=== PATIENT | male | born 1950 | race Caucasian/White ===

== ENCOUNTER 2016-11-10 21:57 | Emergency (ER) | payer OTHER, MEDICARE ==
--- NOTE | 2016-11-10 22:25 | CPEKG ---
Heart Rate: 88 RR Interval: 682 P-R Interval: 148 QRSD Interval: 80 QT Interval: 336 QTC Interval: 407 P [place]: 68 QRS [place]: 12 T Wave [place]: 13 EKG Severity - ABNORMAL ECG - EKG Impression: SINUS RHYTHM EKG Impression: PROBABLE INFERIOR INFARCT, AGE INDETERMINATE EKG Impression: Unchanged from previous Electronically Signed By: Phillip Cates 10-Nov-2016 22:49:51
[2016-11-10 22:27] VITALS: TEMP 98.8
[2016-11-10 22:40] LABS: % IMMATURE GRANULYOCYTES 0.8 % (0.0-1.1); ABSOLUTE IMMATURE GRANULOCYTES 0.08 10^3/uL (0.00-0.10); ADD DIFF? NO; ADD MORPH? NO; ADD SCAN? NO; ATYPICAL LYMPHOCYTE FLAG 0 (0-99); FRAGMENT RBC FLAG 0 (0-99); HEMATOCRIT 51.4 % (40.0-51.0); HEMOGLOBIN 17.5 g/dL (13.7-17.5); LEFT SHIFT FLG 0 (0-99); LIPEMIA HEMOLYSIS FLAG 90 (0-99); MEAN CELL HEMOGLOBIN 31.7 pg (27.9-34.1); MEAN CELL VOLUME 93.1 fL (81.5-99.8); MEAN PLATELET VOLUME 9.4 fL (8.7-11.7); PLATELET CLUMPS FLAG 0 (0-99); PLATELET COUNT 299 10^3/uL (150-400); RED BLOOD CELL COUNT 5.52 10^6/uL (4.40-6.38); RED CELL DISTRIBUTION WIDTH 12.7 % (11.5-15.2)
[2016-11-10 22:47] LABS: ANION GAP 16 mEq/L (8-16); CALCIUM 9.8 mg/dL (8.5-10.4); CARBON DIOXIDE 19 mEq/l (22-31); CHLORIDE 107 mEq/L (97-110); CREATININE 0.8 mg/dL (0.7-1.3); GLOMERULAR FILTRATION RATE > 60; GLUCOSE 95 mg/dL (70-100); POTASSIUM 4.4 mEq/L (3.5-5.2); SODIUM 142 mEq/L (134-144)
[2016-11-10] MEDS ORDERED: LEVALBUTEROL 0.63 MG/3 ML DEYVIAL IH ONE (22:48)
--- NOTE | 2016-11-10 22:48 | EDPHY ---
H & P Stated Complaint: CP Time Seen by Provider: 11/10/16 22:30 HPI/ROS: CHIEF COMPLAINT: Chest pain HISTORY OF PRESENT ILLNESS: The patient is a 66-year-old man with extensive past medical history including AFib resolved with an ablation the but history of coronary artery disease status post 5 stents and OR in 2010. He is followed by [facility] particularly Jose Ramon Gardiner. He had a cardiac catheterization 3 years ago that was unchanged from previous. He also has a history of interstitial lung disease, pernicious anemia, hypertension, obstructive sleep apnea, hypoadrenalism, low testosterone, the Sjogren's syndrome. He states that this evening he was sitting watching TV around 9 o' clock when he suddenly had a tightness in his chest. It did not radiate. He developed shortness of breath and coughing. He states that his symptoms are pretty much resolved other than a slight shortness of breath. he is not wheezing. No recent fevers or infections. REVIEW OF SYSTEMS: Constitutional: denies: chills, fever, recent illness, recent injury EENTM: denies: blurred vision, double vision, nose congestion Respiratory: See HPI Cardiac: See HPI, denies: irregular heart rate, lightheadedness, palpitations Gastrointestinal/Abdominal: denies: abdominal pain, diarrhea, nausea, vomiting, blood streaked stools Genitourinary: denies: dysuria, frequency, hematuria, pain Musculoskeletal: denies: joint pain, muscle pain Skin: denies: lesions, rash, jaundice, bruising Neurological: denies: headache, numbness, paresthesia, tingling, dizziness, weakness Hematologic/Lymphatic: denies: blood clots, easy bleeding, easy bruising Immunologic/allergic: denies: HIV/AIDS, transplant EXAM: GENERAL: Well-appearing, well-nourished and in no acute distress. HEAD: Atraumatic, normocephalic. EYES: Pupils equal round and reactive to light, extraocular movements intact, sclera anicteric, conjunctiva are normal. ENT: TMs normal, nares patent, oropharynx clear without exudates. Moist mucous membranes. NECK: Normal range of motion, supple without lymphadenopathy or JVD. LUNGS: Breath sounds clear to auscultation bilaterally and equal. No wheezes rales or rhonchi. HEART: Regular rate and rhythm without murmurs, rubs or gallops. ABDOMEN: Soft, nontender, normoactive bowel sounds. No guarding, no rebound. No masses appreciated. BACK: No CVA tenderness, no spinal tenderness, step-offs or deformities EXTREMITIES: Normal range of motion, no pitting or edema. No clubbing or cyanosis. NEUROLOGICAL: Cranial nerves II through XII grossly intact. Normal speech, normal gait. 5/5 strength, normal movement in all extremities, normal sensation PSYCH: Normal mood, normal affect. SKIN: Warm, dry, normal turgor, no visible rashes or lesions. Source: Patient, Family Exam Limitations: No limitations - Personal History Current Tetanus/Diphtheria Vaccine: Yes Current Tetanus Diphtheria and Acellular Pertussis (TDAP): Yes - Medical/Surgical History Hx Asthma: Yes Hx Chronic Respiratory Disease: Yes Hx Diabetes: No Hx Cardiac Disease: Yes Hx Renal Disease: No Hx Cirrhosis: No Hx Alcoholism: No Hx HIV/AIDS: No Hx Splenectomy or Spleen Trauma: No Other PMH: pernicious anemia, MARGUERITE, HTN, hypothyroidism, hypoadrenalism, celiac, low testosterone, CAD with stents, sjrogrens syndrome, hiatal hernia, GERD, asthma, appy, migraine, - Family History Significant Family History: Heart disease, Hypertension - Social History Smoking Status: Never smoked Constitutional: Initial Vital Signs Temperature (C) 37.1 C 11/10/16 21:57 Heart Rate 93 11/10/16 21:57 Respiratory Rate 16 11/10/16 21:57 Blood Pressure 155/99 H 11/10/16 21:57 O2 Sat (%) 94 11/10/16 21:57 O2 Delivery Mode Room Air Allergies/Adverse Reactions: ANIBAL Inhibitors Allergy (Verified 11/10/16 22:15) amiodarone Allergy (Verified 11/10/16 22:15) Benzodiazepines Allergy (Verified 11/10/16 22:15) Beta-Blockers (Beta-Adrenergic Bloc Allergy (Verified 11/10/16 22:15) Calcium Channel Blocking Agents-Dih Allergy (Verified 11/10/16 22:15) NSAIDS (Non-Steroidal Anti-Inflamma Allergy (Verified 11/10/16 22:15) Proton Pump Inhibitors Allergy (Verified 11/10/16 22:15) Sjbwvcy-Xrb-Uvn Reductase Inhibitor Allergy (Verified 11/10/16 22:15) Tricyclic Compounds Allergy (Verified 11/10/16 22:15) warfarin [From Coumadin] Allergy (Verified 11/10/16 22:15) SSRIs Allergy (Uncoded 11/10/16 22:15) Home Medications: Medication Instructions Recorded Androgel 11/10/16 Benicar 11/10/16 Cytomel 11/10/16 Medrol 11/10/16 Valium 11/10/16 Vitamin B12 11/10/16 Xopenex 11/10/16 Zofran 11/10/16 Medical Decision Making - Diagnostics EKG Interpretation: An EKG obtained and was read and documented in trace view. Please see trace view for full reading and report. Sinus rhythm, no acute ischemia, unchanged from previous Imaging Results: Imaging Impressions Chest X-Ray 11/10/16 22:27 Impression: Negative portable chest ED Course/Re-evaluation: We discussed the test results thus far. The patient and were reassured. He feels much better after Xopenex treatment. He suspects this may have been slight reactive airway disease versus GERD. I suggested admission versus observation and repeat troponin. The patient does not wish to be admitted. He does agree to a repeat troponin. Patient's repeat troponin is negative. He is eager to go home. He declines further workup or testing at this time. We discussed follow-up as well as indications for returning. Differential Diagnosis: Partial list of the Differential diagnosis considered include but were not limited to; acute coronary disease, COPD exacerbation, pneumonia and although unlikely based on the history and physical exam, I also considered PE, arrhythmia. I discussed these differential diagnoses and the plan with the patient as well as the usual and expected course. The patient understands that the diagnosis is provisional and that in medicine we are not always correct and that further workup is often warranted. Usual and customary warnings were given. All of the patient's questions were answered. The patient was instructed to return to the emergency department should the symptoms at all worsen or return, otherwise to followup with the physician as we discussed. - Data Points Laboratory Results: Laboratory Results 11/10/16 22:07 11/10/16 22:07 11/11/16 11/10/16 11/10/16 00:40 22:46 22:07 WBC RBC Hgb Hct MCV MCH MCHC RDW Plt Count MPV Neut % (Auto) Lymph % (Auto) [place] % (Auto) Eos % (Auto) Baso % (Auto) Nucleat RBC Rel Count Absolute Neuts (auto) Absolute Lymphs (auto) Absolute Monos (auto) Absolute Eos (auto) Absolute Basos (auto) Absolute Nucleated RBC Immature Gran % Immature Gran # PT 12.3 SEC SEC (12.0-15.0) INR 0.92 (0.83-1.16) APTT 26.3 SEC SEC (23.0-38.0) D-Dimer 0.30 ug/mLFEU ug/mLFEU (0.00-0.50) Sodium 142 mEq/L mEq/L (134-144) Potassium 4.4 mEq/L mEq/L (3.5-5.2) Chloride 107 mEq/L mEq/L (97-110) Carbon Dioxide 19 mEq/l L mEq/l (22-31) Anion Gap 16 mEq/L mEq/L (8-16) BUN 20 mg/dL mg/dL (7-23) Creatinine 0.8 mg/dL mg/dL (0.7-1.3) Estimated GFR > 60 Glucose 95 mg/dL mg/dL (70-100) Calcium 9.8 mg/dL mg/dL (8.5-10.4) Troponin I 0.013 ng/mL ng/mL < 0.012 ng/mL ng/mL (0-0.034) (0-0.034) NT-Pro-B Natriuret Pep 118 pg/mL pg/mL (0-125) 11/10/16 22:07 WBC 9.66 10^3/uL H 10^3/uL (3.80-9.50) RBC 5.52 10^6/uL 10^6/uL (4.40-6.38) Hgb 17.5 g/dL g/dL (13.7-17.5) Hct 51.4 % H % (40.0-51.0) MCV 93.1 fL fL (81.5-99.8) MCH 31.7 pg pg (27.9-34.1) MCHC 34.0 g/dL g/dL (32.4-36.7) RDW 12.7 % % (11.5-15.2) Plt Count 299 10^3/uL 10^3/uL (150-400) MPV 9.4 fL fL (8.7-11.7) Neut % (Auto) 69.8 % % (39.3-74.2) Lymph % (Auto) 20.7 % % (15.0-45.0) [place] % (Auto) 8.0 % % (4.5-13.0) Eos % (Auto) 0.0 % L % (0.6-7.6) Baso % (Auto) 0.7 % % (0.3-1.7) Nucleat RBC Rel Count 0.0 % % (0.0-0.2) Absolute Neuts (auto) 6.74 10^3/uL H 10^3/uL (1.70-6.50) Absolute Lymphs (auto) 2.00 10^3/uL 10^3/uL (1.00-3.00) Absolute Monos (auto) 0.77 10^3/uL 10^3/uL (0.30-0.80) Absolute Eos (auto) 0.00 10^3/uL L 10^3/uL (0.03-0.40) Absolute Basos (auto) 0.07 10^3/uL 10^3/uL (0.02-0.10) Absolute Nucleated RBC 0.00 10^3/uL 10^3/uL (0-0.01) Immature Gran % 0.8 % % (0.0-1.1) Immature Gran # 0.08 10^3/uL 10^3/uL (0.00-0.10) PT INR APTT D-Dimer Sodium Potassium Chloride Carbon Dioxide Anion Gap BUN Creatinine Estimated GFR Glucose Calcium Troponin I NT-Pro-B Natriuret Pep Medications Given: Discontinued Medications Levalbuterol (Xopenex 0.63mg Neb) 0.63 mg IH EDNOW ONE Stop: 11/10/16 22:49 Last Admin: 11/10/16 23:08 Dose: 0.63 mg Departure - Departure Disposition: Home, Routine, Self-Care Clinical Impression: Reactive airway disease Qualifiers: Asthma severity: unspecified severity Asthma complication type: uncomplicated Qualified Code(s): J45.909 - Unspecified asthma, uncomplicated Condition: Fair Instructions: Reactive Airways Disease (ED) Referrals: MAMTA AYALA [Other] - As per Instructions
[2016-11-10 22:59] LABS: TROPONIN I < 0.012 ng/mL (0-0.034)
[2016-11-10 23:01] LABS: APTT 26.3 SEC (23.0-38.0); INR 0.92 (0.83-1.16); PROTIME(PATIENT) 12.3 SEC (12.0-15.0)
[2016-11-11 00:24] VITALS: BP 127/73; PULSE 73; RESP 18; O2SAT 93
== END 2016-11-11 01:52 | disposition home or self-care (01) ==
LOC: EDUNIT#
DX: J45.909 Unspecified asthma, uncomplicated (principal); I10 Essential (primary) hypertension; I25.10 Atherosclerotic heart disease of native coronary artery without angina pectoris

== ENCOUNTER → 2017-02-22 | Outpatient (CLI) | payer OTHER, MEDICARE | LOC: BHLMT 13:00 | PROVIDERS: ATTEND Internal Medicine Interventional Cardiology | DX: I25.10 Atherosclerotic heart disease of native coronary artery without angina pectoris (principal); R06.09 Other forms of dyspnea | CPT/HCPCS: 78452; 93017; A9500 ==

== ENCOUNTER 2017-03-12 09:44 | Observation (INO) | payer OTHER, MEDICARE ==
[2017-03-12] MEDS ORDERED: ACETAMINOPHEN 325 MG TAB PO PRN (09:48)
[2017-03-12] MEDS ORDERED: ASPIRIN EC 325 MG TAB PO ONE ×2 (09:48→10:04)
[2017-03-12] MEDS ORDERED: NS 1,000 ML IV SCH ×2 (09:48→13:45)
[2017-03-12] MEDS ORDERED: diphenhydrAMINE 25 MG CAP PO ONE ×2 (09:48→10:04)
[2017-03-12] MEDS ORDERED: FAMOTIDINE 20 MG TAB PO ONE (09:48)
[2017-03-12] MEDS ORDERED: NITROGLYCERIN 0.4 MG BTL SL PRN (09:48)
[2017-03-12] MEDS ORDERED: FAMOTIDINE 20 MG TAB ONE (10:04)
[2017-03-12] MEDS ORDERED: DIAZEPAM 5 MG TAB ONE (10:04)
--- NOTE | 2017-03-12 10:05 | CPEKG ---
Heart Rate: 80 RR Interval: 750 P-R Interval: 172 QRSD Interval: 84 QT Interval: 356 QTC Interval: 411 P [place]: 63 QRS [place]: 26 T Wave [place]: 19 EKG Severity - ABNORMAL ECG - EKG Impression: SINUS RHYTHM EKG Impression: Q WAVES INFERIORLY, POSSIBLE OLD INFERIOR [place], AGE INDETERMINATE Electronically Signed By: David Murphy 12-Mar-2017 11:43:58
[2017-03-12] MEDS ORDERED: DIAZEPAM 5 MG TAB PO ONE (10:45)
[2017-03-12 10:47] LABS: % IMMATURE GRANULYOCYTES 0.7 % (0.0-1.1); ABSOLUTE IMMATURE GRANULOCYTES 0.04 10^3/uL (0.00-0.10); ADD DIFF? NO; ADD MORPH? NO; ADD SCAN? NO; ATYPICAL LYMPHOCYTE FLAG 0 (0-99); FRAGMENT RBC FLAG 0 (0-99); HEMATOCRIT 47.6 % (40.0-51.0); HEMOGLOBIN 16.5 g/dL (13.7-17.5); LEFT SHIFT FLG 0 (0-99); LIPEMIA HEMOLYSIS FLAG 90 (0-99); MEAN CELL HEMOGLOBIN 31.7 pg (27.9-34.1); MEAN CELL HEMOGLOBIN CONCENTR. 34.7 g/dL (32.4-36.7); MEAN CELL VOLUME 91.4 fL (81.5-99.8); MEAN PLATELET VOLUME 8.4 fL (8.7-11.7); PLATELET CLUMPS FLAG 0 (0-99); PLATELET COUNT 231 10^3/uL (150-400); RED BLOOD CELL COUNT 5.21 10^6/uL (4.40-6.38)
[2017-03-12 10:56] LABS: APTT 25.6 SEC (23.0-38.0); INR 0.99 (0.83-1.16)
[2017-03-12 11:03] LABS: ALANINE AMINOTRANSFERASE 50 IU/L (21-72); ALBUMIN 4.1 g/dL (3.5-5.0); ALKALINE PHOSPHATASE 87 IU/L (38-126); ANION GAP 14 mEq/L (8-16); ASPARTATE AMINOTRANSFERASE 29 IU/L (17-59); BILIRUBIN,TOTAL 0.6 mg/dL (0.1-1.4); CALCIUM 9.3 mg/dL (8.5-10.4); CARBON DIOXIDE 24 mEq/l (22-31); CHLORIDE 105 mEq/L (97-110); CHOLESTEROL 204 mg/dL (140-220); CHOLESTEROL/HDL RATIO 4.98 RATIO (1.00-4.97); CREATININE 0.8 mg/dL (0.7-1.3); GLOMERULAR FILTRATION RATE > 60; GLUCOSE 119 mg/dL (70-100); HIGH DENSITY LIPOPROTEIN 41 mg/dL (40-65); LDL/HDL RATIO 3.32 RATIO (1.00-3.64); LOW DENSITY LIPOPROTEIN 136 mg/dL (80-100); MAGNESIUM 1.9 mg/dL (1.6-2.3); NON-HIGH DENSITY LIPOPROTEIN 163 mg/dL (90-129); POTASSIUM 4.2 mEq/L (3.5-5.2); SODIUM 143 mEq/L (134-144); TOTAL PROTEIN 6.7 g/dL (6.3-8.2); TRIGLYCERIDE 136 mg/dL (40-150); VERY LOW DENSITY LIPOPROTEINS 27 mg/dL (8-25)
[2017-03-12] MEDS ORDERED: LIDOCAINE 1% 300 MG/30 ML SDV ONE ×2 (11:22→13:25)
[2017-03-12] MEDS ORDERED: IOPAMIDOL (ISOVUE-370) 150 ML BTL IV ONE ×4 (11:23→14:37)
[2017-03-12] MEDS ORDERED: MIDAZOLAM 2 MG/2 ML VIAL ONE ×4 (11:23→14:37)
[2017-03-12] MEDS ORDERED: fentaNYL 100 MCG/2 ML INJ ONE ×3 (11:23→14:36)
--- NOTE | 2017-03-12 11:53 | PDHPUP ---
History & Physical Update H&P update statement: This history and physical update is based on an assessment of the patient which was completed after admission or registration (within 24 hours), but prior to the surgery/procedure. H&P update: H&P reviewed & patient examined, no change in patient's condition since H&P completed (Andrey test right wrist normal at less than 5 seconds.)
--- NOTE | 2017-03-12 11:54 | PDPROPOC ---
Sedation Plan of Care Sedation Plan of Care: vital signs stable, mental status noted, patient educated of risks, benefits, alternatives, patient can tolerate sedation ASA Classification: ASA 2 Planned drugs: fentanyl, midazolam Mallampati Score: Class 2 Mallampati Reference Image: Patient passed 3-3-2 rule?: Yes
[2017-03-12] MEDS ORDERED: HEPARIN 10,000 UNIT/10 ML MDV ONE ×2 (11:58→13:26)
[2017-03-12] MEDS ORDERED: VERAPAMIL 5 MG/2 ML VIAL ONE ×2 (11:58→13:26)
[2017-03-12] MEDS ORDERED: NITROGLYCERIN 1,500 MCG/15 ML VIAL MISC ONE (12:45)
[2017-03-12] MEDS ORDERED: CLOPIDOGREL BISULFATE 75 MG TAB ONE (13:17)
[2017-03-12] MEDS ORDERED: ONDANSETRON 4 MG/2 ML VIAL IVP PRN (13:36)
[2017-03-12] MEDS ORDERED: CLOPIDOGREL BISULFATE 75 MG TAB PO ONE (13:36)
[2017-03-12] MEDS ORDERED: ATROPINE SULFATE 1 MG/10 ML SYR IVP PRN (13:36)
--- NOTE | 2017-03-12 13:52 | PDDXCAT ---
Diagnostic Cath Note - . Date: 03/12/17 Metal Finish Inspector: Abdifatah Indication: other (Dyspnea on exertiona as an anginal equivalent and abnormal nuclear stress test.) - Procedure Access: right wrist Procedure: left heart catheterization, coronary angiography, left ventriculogram , other (PCI of the RCA) - Materials Left Heart Cath size: 5F Left Heart Cath materials: other (Sightseer and Pigtail) - Findings-Left Heart Catheterization LM: Normal. LAD: Fluoroscopy reveals the presence of a previously stented segment spanning from the proximal to mid-LAD. Angiography reveals a 50% stenosis within the midportion of the stented segment immediately adjacent to the origin of a multibranched septal beater out. The remainder of the LAD and its diagonal branches exhibit mild irregularities. LCX: Fluoroscopy reveals the presence of a previously stented segment in the proximal to midportion of a multi-branched principal obtuse marginal. Angiography reveals that the stented segment is widely patent. Immediately distal to the stent therre is a 50% stenosis. RCA: Flouroscopy demonstrates the presence of a previously stented segment in the mid-RCA. Angiography reveals total occlusion of the RCA early within the stented segment. The distal vessel receives [id number]-[id number] collaterals via septal beater out branches from the LAD. EDP: 26 mmHg LVEF: 55% Wall motion: Inferobasilar hypokinesis. Complications: None Estimated blood loss: <50ml Closure method: TR Band Assessment: 1) Preserved LV systolic function with inferobasilar hypokinesis. 2 ) CAD as described above. 3) Succeesful PCI of the RCA using two drug coated stents. Intervention: Based on the patient's clinical history and diagnostic angiography, the decision was made to perform PCI of the RCA. The patient received 2500 units of intravenous heparin in addition to the 5000 units that had been given at the beginning of the procedure. A 5 Romansh JR 4 guide catheter was advanced to the RCA ostium. A Media Clerk-50 guidewire was successfully negotiated into the distal RCA. Predilatation of the site of total occlusion was performed using a 2.0 x 15 mm Emerge balloon. This restored anterograde flow. However, there was a second total occlusion approximately 15 mm distal to the first. The more distal total occlusion was crossed using a 1.5 x 12 mm Emerge balloon. Inflations were performed throughout the mid-RCA using the 1.5 and 2.0 mm balloons. A 2.75 x 28 mm Synergy stent was advanced into the mid to distal RCA and was deployed at high pressure. A second Synergy stent measuring 3.0 x 24 mm was advanced into position proximal to, and slightly overlapping, the first stent. The second stent was deployed at high pressure. An additional inflation was performed at the overlap segment. Final angiograms demonstrated 0% residual stenosis and AMBER -III flow.
--- NOTE | 2017-03-12 14:11 | CPEKG ---
Heart Rate: 74 RR Interval: 811 P-R Interval: 176 QRSD Interval: 82 QT Interval: 360 QTC Interval: 400 P [place]: 48 QRS [place]: 6 T Wave [place]: -3 EKG Severity - ABNORMAL ECG - EKG Impression: SINUS RHYTHM EKG Impression: INFERIOR INFARCT, AGE INDETERMINATE Electronically Signed By: David Murphy 12-Mar-2017 15:54:21
[2017-03-12] MEDS: FLUNISOLIDE IH SCH (17:21)
[2017-03-12] MEDS ORDERED: OLMESARTAN 40 MG PO SCH (21:00)
[2017-03-12] MEDS ORDERED: AEROSPAN IH SCH (21:00)
[2017-03-12] MEDS ORDERED: LEVALBUTEROL INHALER 200 PUFFS/15 GM MDI IH SCH (21:00)
[2017-03-12] MEDS: HYDROCODONE/APAP 5/325 TAB PO PRN (22:38)
[2017-03-13] MEDS: HYDROCODONE/APAP 5/325 TAB PO PRN (00:11)
[2017-03-13 06:02] LABS: % IMMATURE GRANULYOCYTES 0.6 % (0.0-1.1); ABSOLUTE IMMATURE GRANULOCYTES 0.04 10^3/uL (0.00-0.10); ADD DIFF? NO; ADD MORPH? NO; ADD SCAN? NO; ATYPICAL LYMPHOCYTE FLAG 10 (0-99); FRAGMENT RBC FLAG 0 (0-99); HEMATOCRIT 43.7 % (40.0-51.0); LEFT SHIFT FLG 0 (0-99); LIPEMIA HEMOLYSIS FLAG 90 (0-99); MEAN CELL HEMOGLOBIN 31.7 pg (27.9-34.1); MEAN CELL HEMOGLOBIN CONCENTR. 34.3 g/dL (32.4-36.7); MEAN CELL VOLUME 92.4 fL (81.5-99.8); MEAN PLATELET VOLUME 8.8 fL (8.7-11.7); PLATELET CLUMPS FLAG 0 (0-99); PLATELET COUNT 195 10^3/uL (150-400); RED BLOOD CELL COUNT 4.73 10^6/uL (4.40-6.38); RED CELL DISTRIBUTION WIDTH 13.2 % (11.5-15.2)
[2017-03-13 06:13] LABS: ALBUMIN 3.4 g/dL (3.5-5.0); ANION GAP 11 mEq/L (8-16); ASPARTATE AMINOTRANSFERASE 27 IU/L (17-59); BILIRUBIN,TOTAL 0.4 mg/dL (0.1-1.4); CALCIUM 8.5 mg/dL (8.5-10.4); CARBON DIOXIDE 23 mEq/l (22-31); CHLORIDE 106 mEq/L (97-110); CREATININE 0.8 mg/dL (0.7-1.3); GLOMERULAR FILTRATION RATE > 60; GLUCOSE 86 mg/dL (70-100); LACTATE DEHYDROGENASE 490 IU/L (313-618); MAGNESIUM 2.1 mg/dL (1.6-2.3); POTASSIUM 3.8 mEq/L (3.5-5.2); SODIUM 140 mEq/L (134-144)
[2017-03-13 07:54] VITALS: BP 125/66; PULSE 78; RESP 14; TEMP 98.1; O2SAT 94
[2017-03-13] MEDS: FLUNISOLIDE IH SCH (08:14)
[2017-03-13] MEDS ORDERED: ASPIRIN EC 325 MG TAB PO SCH (09:00)
[2017-03-13] MEDS ORDERED: CLOPIDOGREL BISULFATE 75 MG TAB PO SCH (09:00)
[2017-03-13] MEDS ORDERED: methylPREDNISolone 4 MG TAB PO SCH (09:00)
[2017-03-13] MEDS ORDERED: LEVALBUTEROL 1.25 MG/3 ML DEYVIAL IH SCH (09:00)
--- NOTE | 2017-03-13 09:02 | CPEKG ---
Heart Rate: 87 RR Interval: 690 P-R Interval: 156 QRSD Interval: 84 QT Interval: 336 QTC Interval: 404 P [place]: 68 QRS [place]: 19 T Wave [place]: 50 EKG Severity - ABNORMAL ECG - EKG Impression: SINUS RHYTHM EKG Impression: PROBABLE INFERIOR INFARCT, OLD Electronically Signed By: David Murphy 13-Mar-2017 15:36:15
--- NOTE | 2017-03-13 12:46 | GDS ---
[f rep st] DISCHARGE SUMMARY SUPERVISING INFORMATICA ARCHITECT: Jose Ramon Gardiner MD ADMISSION DIAGNOSES: 1. Shortness of breath. 2. Coronary artery disease. 3. Abnormal myocardial perfusion imaging study. 4. Hypertension. 5. Hyperlipidemia. 6. Paroxysmal atrial fibrillation, with remote cryoablation. 7. Sjogren syndrome. 8. Asthma. DISCHARGE DIAGNOSES: 1. Coronary artery disease, status post percutaneous coronary intervention with 2 drug-eluting stent implantations of the right coronary artery, a 2.75 x 28 Synergy drug-eluting stent and a 3.0 x 24 Sy nergy drug-eluting stent. 2. Hypertension. 3. Hyperlipidemia. 4. History of paroxysmal atrial fibrillation, with remote cryoablation in [place]. 5. Sjogren syndrome. 6. Asthma. PROCEDURES PERFORMED DURING HOSPITALIZATION: 1. Electrocardiogram. 2. Diagnostic heart catheterization. 3. Percutaneous coronary intervention of the right coronary artery with SONIA implantation of a 2.75 x 28 Synergy SONIA in distal RCA, and a 3.0 x 24 Synergy SONIA implantation in proximal RCA. BRIEF HISTORY: Please see H and P: Briefly, the patient is a 66-year-old male with known history of CAD. He has been reporting ongoing symptoms of fatigue and shortness of breath, walking 1 block. H e recently underwent a nuclear stress test showing a dense fixed deficit consistent with prior VA in his inferior wall. Due to his symptoms and known history of CAD, it was decided that he should come in for further evaluation by cardiac catheterization for coronary ischemia. HOSPITAL COURSE: Patient was admitted through CVC, prepped for procedure, and taken to the cardiac c atheterization lab. There, Dr. Gardiner performed a left heart catheterization from the right radial approach. Findings of coronary angiogram showed left main was normal; LAD was showing previous sten t with a 50% in-stent restenosis, the rest of the LAD with mild luminal irregularities; circumflex wi th previous stented proximal to mid point obtuse marginal, showing the stent was widely patent, immed iately distal to the stent, there was a 50% stenosis; RCA coronary was completely occluded, noting le ft-to-right collateral circulation via septal tool salvage worker branches from the LAD. His EDP was measured at 26 mmHg, LVEF was 55% with inferior basal hypokinesis. At that point, Dr. Gardiner decided to pr oceed with percutaneous coronary intervention, in which he was successfully able to reopen the totall y occluded RCA and implant 2 SONIA as mentioned above. No complications. Patient was taken to the CVC and ultimately to the PCU for overnight observation. There, he reports he has been walking the unit , reporting his symptoms of shortness of breath have significantly improved. He denies any chest pre ssure or pain, reports no palpitations. On continuous cardiac monitoring, he has been in sinus rhyth m with rare PVC. No malignant arrhythmias or pauses noted. PHYSICAL EXAMINATION ON DAY OF DISCHARGE: GENERAL APPEARANCE: A medium built, mildly obese, Caucasi an male. He is alert and oriented to person, place, time, and situation. Appears to be under no acu te distress. VITAL SIGNS: Currently, blood pressure 125/66, heart rate 78, sinus rhythm on the radha tor, respirations 14, saturating 94% on room air. Temperature of 36.7 degrees Celsius. HEENT: Head is normocephalic. Lips and tongue are pink and moist with no signs of cyanosis. Conjunctivae pink. NECK: Trachea is midline, +2 carotid pulses bilateral. No auscultated bruits, no jugular vein dis tention. RESPIRATORY: Lungs are clear to auscultation, no rhonchi, rales or wheezes. No accessory muscle use, no intercostal muscle retraction noted. CARDIAC: Regular rate, regular rhythm, S1, S2. No S3, S4, gallops, rubs or murmur noted. ABDOMEN: Soft, nontender, bowel sounds x4 quadrants. No organomegaly. No palpable masses. SKIN: [place], warm, dry, no cyanosis, no clubbing, no peripheral edema. VASCULAR: +2 carotids bilateral, +2 radials bilateral, +1 dorsal pedal and posterior tibial pulses bilateral. Catheter insertion site, right wrist site, with no redness, swelling, drainage, ec chymosis, or hematoma. Capillary refill within normal limits to right upper extremity fingers. LABORATORY STUDIES: This morning, showed WBC of 6.45, hemoglobin 15.0, hematocrit 43.7, platelet cou nt 195. Sodium 140, potassium 3.8, chloride 106, CO2 of 23, BUN 16, creatinine 0.8, glucose 86, calc ium 8.5, phosphorus 3.32, magnesium 2.1, total bilirubin 0.4, AST of 27, albumin 3.4. Yesterday, tot al fasting lipid panel showed total cholesterol of 204, LDL 136, triglycerides 136, HDL 41. STUDIES: Diagnostic cardiac catheterization and percutaneous coronary intervention as mentioned abov e. Morning electrocardiogram shows sinus rhythm, noted mild Q-waves in inferior leads. No significa nt ST or T-wave abnormalities noted. DISCHARGE DISPOSITION: Patient will be discharged home in stable condition. He is under activity re strictions of not lifting more than 10 pounds with the right arm for the next week, and no strenuous activity for the next 2 weeks. DISCHARGE MEDICATIONS: Please see discharge medication reconciliation sheet, note patient's aspirin therapy has been increased to 325 mg and he has been started on clopidogrel 75 mg p.o. daily. DISCHARGE INSTRUCTIONS: Post percutaneous coronary intervention discharge instructions went over wit h the patient including monitoring for signs of infection, activity restrictions, and medication comp liancy; especially, the importance of dual anti-platelet therapy with 2 new SONIA implanted. Had a aliyah g discussion with the patient and his regarding his cholesterol status, patient has been known t o be statin intolerant, he does not want to start Zetia, he would consider potentially a PCSK9 inhibi tor, which we will discuss further at his next office visit. The patient has a followup visit set fo r next at our [place] office with myself. At the time of discharge, patient verbalizes und erstanding of all instructions and has no questions or concerns. He has been told that if any proble ms or concerns post discharge, he is to call our office or return to the hospital. Total time spent on discharge, greater than 30 minutes. Copy requested to: Mayur Sewell MD /[id number]/JOSE ALBERTOL
--- NOTE | 2017-03-13 15:25 | ASDISCHSUM ---
Discharge Information Plan Status:Home with No Needs Medically Cleared to Leave:03/12/2017 Discharge Date:03/13/2017 12:08 PM CM D/C Disposition:Home, Routine, Self-Care ADT D/C Disposition:Home, Routine, Self-Care Projected Discharge Date:03/13/2017 12:08 PM Transportation at D/C:Friend Discharge Delay Reason: Follow-Up Date:03/13/2017 12:08 PM Discharge Slot: Final Diagnosis: Placement Information Patient Contact Information Contact Name:MAISHA Relationship: Address:[address] [place] Alternate Phone: [facility]/Zip Code:[place] [address] Email: Financial Information Financial Class: Primary Plan Desc:MEDICARE OUTPATIENT Primary Plan Number:[id number] Secondary Plan Desc:[employer]/MDR SUPPLEMENT Secondary Plan Number:[id number] Assessment Information Intervention Information Intervention Type:*PETERSON-Signed Date of Service:03/13/2017 09:46 AM Patient Type:Observation Staff Member:Ivanna Moss Hours: Discipline: Severity: Comment:
[2017-03-14] MEDS ORDERED: LIOTHYRONINE SODIUM 5 MCG TAB PO SCH (09:00)
[2017-03-16 14:11] LABS: 2C19 DISCLAIMER See Comments; 2C19 INTERPRETATION See Comments; 2C19 METHOD See Comments
== END 2017-03-13 12:08 | disposition home or self-care (01) ==
LOC: FCATH 09:44 → F2W 16:10
PROVIDERS: ADMIT Internal Medicine Interventional Cardiology; ATTEND Internal Medicine Interventional Cardiology
PROC: B2111ZZ Fluoroscopy of Multiple Coronary Arteries using Low Osmolar Contrast (ICD-10-PCS; principal; 2017-03-12)
PROC: B2151ZZ Fluoroscopy of Left Heart using Low Osmolar Contrast (ICD-10-PCS; principal; 2017-03-12)
PROC: 4A023N7 Measurement of Cardiac Sampling and Pressure, Left Heart, Percutaneous Approach (ICD-10-PCS; principal; 2017-03-12)
DX: R06.02 Shortness of breath (principal); I25.10 Atherosclerotic heart disease of native coronary artery without angina pectoris; R94.39 Abnormal result of other cardiovascular function study; I10 Essential (primary) hypertension; E78.5 Hyperlipidemia, unspecified; I48.0 Paroxysmal atrial fibrillation; M35.00 Sjogren syndrome, unspecified; J45.909 Unspecified asthma, uncomplicated
CPT/HCPCS: 93005; 93458; C1725; C1769; C1874; C1887; C9600; J1644; J2250; J3010; Q9967; 81225-90

== ENCOUNTER → 2017-04-03 | Outpatient (CLI) | payer OTHER, MEDICARE | LOC: BHLMT 16:00 | PROVIDERS: ATTEND Nurse Practitioner Family | DX: R00.2 Palpitations (principal) | CPT/HCPCS: 93225-PO; 93226-PO ==

== ENCOUNTER 2018-01-26 02:52 | Inpatient (IN) | payer OTHER, MEDICARE ==
--- NOTE | 2018-01-26 03:13 | EDPHY ---
H & P Stated Complaint: Shoulder/Neck pain Pt. states same pain as past AMI Time Seen by Provider: 01/26/18 03:09 HPI/ROS: Chief Complaint: Left shoulder and neck pain HPI: 67-year-old male with a history of coronary artery disease is been having intermittent pain in his left shoulder blade in his left neck for the last 2 days. It feels like his prior MIs in the past. No substernal chest pain but he has never had substernal chest pain. Last time was catheterized of February of last year at which time he had stents placed. Pain is not reproducible. There are no aggravating or alleviating factors. It comes on last for about 30 min to an hour. He did take some nitroglycerin in aspirin with some relief. He is currently pain-free. Pain is"severe"when it comes. No leg pain or swelling. ROS: 10 systems were reviewed and were negative except those elements noted in the HPI. PMH: Coronary artery disease, hypertension, autoimmune disease Social History: No smoking, no alcohol, no recreational drug use Family History: non-contributory Physical Exam: Gen: Awake, Alert, No Distress HEENT: Nose: no rhinorrhea Eyes: PERRLA, EOMI Mouth: Moist mucosa Neck: Supple, no JVD Chest: nontender, lungs clear to auscultation Heart: S1, S2 normal, no murmur Abd: Soft, non-tender, no guarding Back: no CVA tenderness, no midline tenderness Ext: no edema, non-tender Skin: no rash Neuro: CN II-XII intact, Sensation grossly intact, Strength 5/5 in bilateral upper and lower extremities - Personal History Current Tetanus/Diphtheria Vaccine: Unsure Current Tetanus Diphtheria and Acellular Pertussis (TDAP): Unsure - Medical/Surgical History Hx Asthma: Yes Hx Chronic Respiratory Disease: Yes Hx Diabetes: No Hx Cardiac Disease: Yes Hx Renal Disease: No Hx Cirrhosis: No Hx Alcoholism: No Hx HIV/AIDS: No Hx Splenectomy or Spleen Trauma: No Other PMH: 2010 AMI, pernicious anemia, MARGUERITE, HTN, hypothyroidism, hypoadrenalism , celiac, low testosterone, CAD with stents, sjrogrens syndrome, hiatal hernia, GERD, asthma, appy - Social History Smoking Status: Never smoked Constitutional: Initial Vital Signs Temperature (C) 36.8 C 01/26/18 02:53 Heart Rate 81 01/26/18 02:53 Respiratory Rate 16 01/26/18 02:53 Blood Pressure 176/74 H 01/26/18 02:53 O2 Sat (%) 93 01/26/18 02:53 O2 Delivery Mode Room Air Allergies/Adverse Reactions: ANIBAL Inhibitors Allergy (Verified 11/10/16 22:15) amiodarone Allergy (Verified 11/10/16 22:15) Benzodiazepines Allergy (Verified 11/10/16 22:15) Beta-Blockers (Beta-Adrenergic Bloc Allergy (Verified 11/10/16 22:15) Calcium Channel Blocking Agents-Dih Allergy (Verified 11/10/16 22:15) NSAIDS (Non-Steroidal Anti-Inflamma Allergy (Verified 11/10/16 22:15) Proton Pump Inhibitors Allergy (Verified 11/10/16 22:15) Kgpfcqy-Tmg-Qio Reductase Inhibitor Allergy (Verified 11/10/16 22:15) Tricyclic Compounds Allergy (Verified 11/10/16 22:15) warfarin [From Coumadin] Allergy (Verified 11/10/16 22:15) SSRIs Allergy (Uncoded 11/10/16 22:15) Home Medications: Medication Instructions Recorded Aerospan 3 puffs IH BID 03/05/17 Cyanocobalamin [Vitamin B12 20,000 mcg IM Q7D 03/05/17 1000MCG/ML (*)] Herbals/Supplements -Info Only 1 ea PO DAILY 03/05/17 Levalbuterol 1.25 mg [Xopenex 1.25 mg IH DAILY 03/05/17 1.25MG Neb (*)] Levalbuterol Tartrate [Xopenex Hfa] 2 - 4 puffs IH HS 03/05/17 Liothyronine Sodium [Cytomel 5 mcg 5 mcg PO Q2D 03/05/17 (*)] Naltrexone 4.5mg (Low Dose) 4.5 mg PO DAILY 03/05/17 Olmesartan Medoxomil [Benicar 20 20 mg PO HS 03/05/17 mg (*)] Testosterone [ANDROGEL 1% 5gm pkt 2.5 gm TD DAILY 03/05/17 (*)] methylPREDNISolone [Medrol 4mg (*)] 4 mg PO DAILY 03/05/17 Acetaminophen [Tylenol 325mg (*)] 650 mg PO QID PRN tab 03/13/17 Aspirin EC [Aspirin EC 325 mg (*)] 325 mg PO DAILY tab 03/13/17 Clopidogrel Bisulfate [Plavix (*)] 75 mg PO DAILY #90 tab 03/13/17 Nitroglycerin 0.4 mg SL Q5M PRN #1 btl 03/13/17 Medical Decision Making - Diagnostics EKG Interpretation: ECG time 3:03 a.m., sinus rhythm with a rate of 78, there is a right bundle branch block. There are Q-waves in the inferior leads consistent with an old infarct. There are T-wave inversions from V1 through V3. The bundle-branch block in T-wave changes are new compared to an ECG from the 13 March 2017. Imaging Results: Chest x-ray is negative per my interpretation. Imaging: I viewed and interpreted images myself ED Course/Re-evaluation: Patient remains pain-free. Troponins 0.05. ECG does not show any acute changes but he does have a new right bundle branch block compared to last February. Given his extensive cardiac history and is atypical symptoms with his prior MIs plan will be to admit for cardiac rule out. I have discussed with Dr. Hardin, hospitalist. She will admit to her service. - Data Points Laboratory Results: Laboratory Results 01/26/18 03:05 01/26/18 03:05 01/26/18 01/26/18 01/26/18 03:09 03:05 03:05 WBC 8.82 10^3/uL 10^3/uL (3.80-9.50) RBC 5.48 10^6/uL 10^6/uL (4.40-6.38) Hgb 17.1 g/dL g/dL (13.7-17.5) Hct 50.5 % % (40.0-51.0) MCV 92.2 fL fL (81.5-99.8) MCH 31.2 pg pg (27.9-34.1) MCHC 33.9 g/dL g/dL (32.4-36.7) RDW 12.8 % % (11.5-15.2) Plt Count 258 10^3/uL 10^3/uL (150-400) MPV 8.4 fL L fL (8.7-11.7) Neut % (Auto) 59.4 % % (39.3-74.2) Lymph % (Auto) 29.0 % % (15.0-45.0) Howell % (Auto) 10.0 % % (4.5-13.0) Eos % (Auto) 0.0 % L % (0.6-7.6) Baso % (Auto) 1.0 % % (0.3-1.7) Nucleat RBC Rel Count 0.0 % % (0.0-0.2) Absolute Neuts (auto) 5.24 10^3/uL 10^3/uL (1.70-6.50) Absolute Lymphs (auto) 2.56 10^3/uL 10^3/uL (1.00-3.00) Absolute Monos (auto) 0.88 10^3/uL H 10^3/uL (0.30-0.80) Absolute Eos (auto) 0.00 10^3/uL L 10^3/uL (0.03-0.40) Absolute Basos (auto) 0.09 10^3/uL 10^3/uL (0.02-0.10) Absolute Nucleated RBC 0.00 10^3/uL 10^3/uL (0-0.01) Immature Gran % 0.6 % % (0.0-1.1) Immature Gran # 0.05 10^3/uL 10^3/uL (0.00-0.10) Sodium 142 mEq/L mEq/L (135-145) Potassium 4.2 mEq/L mEq/L (3.3-5.0) Chloride 101 mEq/L mEq/L (97-110) Carbon Dioxide 30 mEq/l mEq/l (22-31) Anion Gap 11 mEq/L mEq/L (8-16) BUN 19 mg/dL mg/dL (7-23) Creatinine 0.8 mg/dL mg/dL (0.7-1.3) Estimated GFR > 60 Glucose 114 mg/dL H mg/dL (70-100) Calcium 10.1 mg/dL mg/dL (8.5-10.4) POC Troponin I 0.05 ng/mL ng/mL (0.00-0.08) Point of Care Test Results: Chemistry 01/26/18 03:09 POC Troponin I 0.05 ng/mL ng/mL (0.00-0.08) Departure - Departure Disposition: [facility] Inpatient Acute Clinical Impression: Chest pain Condition: Fair Referrals: LUCAS CROW [Primary Care Provider] - As per Instructions
[2018-01-26 03:21] LABS: PLATELET COUNT 258 10^3/uL (150-400)
--- NOTE | 2018-01-26 04:24 | CPEKG ---
Test Reason : OPEN Blood Pressure : / mmHG Vent. Rate : 078 BPM Atrial Rate : 079 BPM P-R Int : 156 ms QRS Dur : 128 ms QT Int : 379 ms P-R-T Axes : 044 027 006 degrees QTc Int : 432 ms Sinus rhythm Right bundle branch block Inferior infarct, old Confirmed by Chandra Hawkins ([id number]) on 01/26/2018 4:24:02 AM Referred By: Confirmed By:Chandra Hawkins
[2018-01-26] MEDS ORDERED: ALBUTEROL 3 ML DEYVIAL IH PRN (04:29)
[2018-01-26] MEDS ORDERED: NS 1,000 ML IV SCH (04:30)
[2018-01-26] MEDS ORDERED: NITROGLYCERIN 0.4 MG BTL SL PRN (04:32)
[2018-01-26] MEDS ORDERED: CYCLOBENZAPRINE 10 MG TAB PO ONE (04:39)
[2018-01-26] MEDS ORDERED: LEVALBUTEROL 1.25 MG/3 ML DEYVIAL IH PRN (05:51)
[2018-01-26] MEDS ORDERED: IPRATROPIUM/ALBUTEROL 3 ML DEYVIAL IH SCH (06:00)
[2018-01-26] MEDS: HYDROCODONE/APAP 5/325 TAB PO PRN ×3 (06:19→23:11)
--- NOTE | 2018-01-26 07:03 | GHP ---
DATE OF ADMISSION: 01/26/2018 PRIMARY CARE PHYSICIAN: Mayur Sewell The patient is followed by [facility]. SOURCE: Patient provides history, appears reliable. His EMR was reviewed and case discussed with ED provider. at bedside and supplements details. CHIEF COMPLAINT: Left shoulder blade and neck pain. HISTORY OF PRESENT ILLNESS: This is a very pleasant 67-year-old gentleman with past medical history significant for coronary artery disease, with history of MN in 2004, status post PCI at that time of the circumflex, as well as RCA in January 2011, and February 2011; history of paroxysmal atrial fibri llation, status post ablation; asthma; MARGUERITE on CPAP; hypertension; hyperlipidemia; Sjogren's; Lyme dis ease; polymyalgia rheumatica; GERD, who presents to the emergency department today with complaints of 2 days of intermittent left shoulder blade pain with radiation up into his neck. The patient report s a history of MN with similar symptoms. He has always had atypical type symptoms, never any anterio r chest pain or pressure. Patient denies any associated shortness of breath, diaphoresis, nausea, or vomiting. He did feel a little bit anxious as well as feel some palpitations. The patient denies a ny numbness or tingling down his arm. He denies any acute changes in vision. He denies any lower ex tremity edema. No orthopnea. No PND. REVIEW OF SYSTEMS: Ten systems reviewed and otherwise negative, except as noted below. GENERAL: Sudheer long denies any fevers, chills. No recent illnesses. GI: Patient reports a history of chronic int ermittent diarrhea since his Regina fundoplication and use of antibiotics for UTI. ALLERGIES: To eggs, ANIBAL inhibitors, amiodarone, benzodiazepine, beta blockers, PPIs, SSRIs, statins, NSAIDs, and Coumadin. Patient reports he has a liver enzyme deficiency. MEDICATIONS: Medication list has not yet been reviewed by pharmacy. However, patient reports that neri johnson is no longer taking the Benicar listed. Rarely uses Xopenex. He is no longer taking Plavix as he completed a 6-month course. He is intermittently compliant with 162-325 mg of aspirin taken intermitt ently, nothing on a daily basis. Testosterone supplementation. PAST MEDICAL HISTORY: Significant for asthma, MARGUERITE on CPAP, pernicious anemia, celiac disease, hypogo nadism with low testosterone, GERD, hiatal hernia, CAD with history of stents as noted above, hyperte nsion, hyperlipidemia, paroxysmal atrial fibrillation status post cryoablation, Sjogren syndrome, Lym e disease, polymyalgia rheumatica, history of UTI and pyelo several years ago. PAST SURGICAL HISTORY: Significant for lap Regina fundoplication, cardiac cath x3 with PCI as noted above, Cryoablation 2012 for atrial fibrillation. The patient with 4 different eye surgeries, includ ing vitrectomy as well as cataract lens placement. FAMILY HISTORY: CAD, CABG, CHF, hyperlipidemia, hypertension, CVA. SOCIAL HISTORY: Patient is to his , Adela. He does not smoke, drink, or utilize any illicit drugs. CODE STATUS: Full. PHYSICAL EXAM: VITALS: Upon arrival to the emergency department, blood pressure is 176/74, heart ra te 81, respiratory rate 16, O2 saturation 93% on room air, temperature 36.8. Current vital signs: B lood pressure 162/84, heart rate 71, respiratory rate 16, O2 saturation 95% on room air, temperature 37.1. GENERAL: No acute distress. Very pleasant adult gentleman is sitting up in bed, pleasant, in good spirits. is at bedside. HEAD: Normocephalic, atraumatic. EYES: Extraocular muscles ar e grossly intact. Pupils equal, round, reactive to light bilaterally. Lens reflex appreciated bilat erally. No scleral icterus, conjunctival injection. ENT: Mucous membranes appear moist. Dentition in fair condition. No nasal discharge. NECK: Supple. Trachea midline. CV: Regular rate and rhy thm. No murmurs, rubs, or gallops appreciated. RESPIRATORY: Unlabored breathing. Lungs are clear to auscultation bilaterally. Occasional wheeze at the base on the left and intermittent cough during the interview. Unlabored breathing otherwise. ABDOMEN: Positive bowel sounds. Soft, nontender to palpation. No rebound, guarding, or masses appreciated. : No suprapubic tenderness to palpation . No Leong catheter in place. EXTREMITIES: 2+ pedal pulses. No cyanosis, clubbing, or edema appre ciated. Strength grossly intact. Patient sits up independently. NEURO: Grossly nonfocal. Moves a ll extremities as noted above. Patient awake, alert, and oriented x4. PSYCH: Patient's thought pro cess, content and questions are appropriate. Patient is pleasant and cooperative. LABORATORY STUDIES: WBCs 8.82, H and H 17.1, 50.5, MCV of 92.2, platelet count is 258, no bands. So dium is 142, potassium 4.2, chloride 101, CO2 is 30, anion gap 11, BUN 19, creatinine 0.8. GFR great er than 60. Glucose is 114, calcium 10.1. Troponin 0.05, and lab value 0.050 with upper limit of no rmal 0.034. EKG, reviewed myself, showing normal sinus rhythm in the 70s with right bundle branch block, which wa s previously seen on EKGs dating back to 2011. Inferior infarct is old and stable compared to previo us EKGs. QTc is 432. The patient does have T-wave inversions in the anterior leads, likely in the s etting of patient's right bundle branch block. Chest x-ray: Image reviewed myself, report is still pending. Slightly flattened diaphragm on the le ft. Perihilar prominence present, but no acute infiltrates or cardiomegaly appreciated. Repeat EKG in the ED shows normal sinus rhythm with persistent right bundle branch block, persistent T-wave ST depression in the anterior leads and persistent Q-wave in the inferior leads. QTc of 434. ASSESSMENT/PLAN: Pleasant 67-year-old gentleman with known coronary artery disease, who presents wit h complaints of left shoulder blade and neck pain intermittently. 1. Shoulder blade pain. Patient reports this is quite similar and had been as severe at home, simil ar to his previous MIs. The patient did take nitroglycerin at home, which did seem to improve his sy mptoms, as well as aspirin. Prior to arrival to the emergency department, his symptoms were pretty m uch resolved at that time. His initial lab troponin was above the upper limit of normal at 0.05, wit h upper limit of normal being 0.034. We will plan to trend his cardiac enzymes, further re-evaluatio n on results, and consideration for stress testing versus further discussion with Cardiology for harpal tional evaluation as patient has had multiple stents and catheterizations, last being 2016. Currentl y, patient is fairly pain-free. He also notes that he feels like he, in addition, has had been havin g some spasm type pain, which is palpable on exam, but not reproducible as the main complaint of his shoulder blade pain with radiation into his neck. The patient did receive Flexeril in the emergency department, which we will continue p.r.n. Consider applying heat as well. Continue with cardiac marisa l as noted above, however. 2. Chronic medical issues listed below without any change in management. a. History of asthma. Will leave neb treatment p.r.n. b. Obstructive sleep apnea with CPAP, which patient has brought. c. History of pernicious anemia with normal H and H at this time. d. History of celiac. e. Decreased testosterone. f. Gastroesophageal reflux disease. g. Hiatal hernia. h. Hyperlipidemia. i. Paroxysmal atrial fibrillation, status post ablation, and normal sinus rhythm. j. Sjogren syndrome. k. History of Lyme disease. l. Polymyalgia rheumatica. m. Coronary artery disease. n. Benign essential hypertension. 3. Fluid, electrolyte, nutrition. The patient will be n.p.o. pending his repeat cardiac enzymes for additional planning. Electrolytes are adequate at this time. Not requiring any replacement. 4. Prophylaxis. SCDs. Holding anticoagulation. CODE STATUS: Full. DISPOSITION: Patient admitted to observation status on PCU floor for close cardiac monitoring. At t his time, depending on outcome of rule out, anticipate for now patient will be requiring less than 2 midnight stay based on current status. /[id number]/MODL
[2018-01-26] MEDS ORDERED: diphenhydrAMINE 25 MG CAP PO ONE (11:38)
[2018-01-26] MEDS ORDERED: DIAZEPAM 5 MG TAB PO ONE (11:38)
[2018-01-26] MEDS ORDERED: FAMOTIDINE 20 MG TAB PO ONE (11:38)
[2018-01-26] MEDS: ASPIRIN 325 MG TAB PO SCH (12:15)
[2018-01-26] MEDS ORDERED: LIDOCAINE 1% 300 MG/30 ML SDV ONE (12:19)
[2018-01-26] MEDS ORDERED: fentaNYL 100 MCG/2 ML INJ ONE (12:19)
[2018-01-26] MEDS ORDERED: HEPARIN 10,000 UNIT/10 ML MDV (1,000 UNIT/ML) ONE (12:19)
[2018-01-26] MEDS ORDERED: MIDAZOLAM 2 MG/2 ML VIAL ONE (12:19)
[2018-01-26] MEDS ORDERED: IOPAMIDOL (ISOVUE-370) 150 ML BTL IV ONE (12:19)
[2018-01-26] MEDS ORDERED: VERAPAMIL 5 MG/2 ML VIAL ONE (12:19)
--- NOTE | 2018-01-26 12:50 | GCON ---
DATE OF CONSULTATION: 01/26/2018 REASON FOR ADMISSION: Neck and shoulder pain, which are his anginal equivalents. We are asked by the hospitalist to evaluate related to his left shoulder and neck pain, which are his anginal equivalents. He does have a history of cardiac angiogram with stent placement 1 year ago. HISTORY OF PRESENT ILLNESS: This is a 67-year-old male who does have a history of coronary artery disease with previous stent placement. Additionally, he has a history of hypertension, PVCs, paroxysmal atrial fibrillation. He reports that 2 days ago, for 1 hour, he noticed mid scapular pain that radiated up into his neck and head for 1 hour. It then subsided. Again, last evening, he started noticing similar symptoms which concerned him that it may be cardiac-related. He decided to go to the emergency room for further evaluation. His last stents were placed in February of last year, 2016. He did try nitroglycerin at home and did have some pain relief. REVIEW OF SYSTEMS: Negative except that was reported in the HPI. SOCIAL HISTORY: He denies smoking or alcohol or illicit drug use. PAST MEDICAL HISTORY: Coronary artery disease, hyperlipidemia, hypertension, Lyme disease, obstructive sleep apnea, paroxysmal atrial fibrillation, PVCs, pulmonary embolus in 2013. PAST SURGICAL HISTORY: Laparoscopy. MEDICATIONS: He currently is on ferrous Aerospan 80 mcg inhalation, aspirin 81 mg daily, Clopidogrel 75 mg daily, Cytomel 5 mcg every other day, Medrol 4 mg 1 tablet once daily, naltrexone daily, Benicar 20 mg at bedtime, AndroGel 1% five g packet 2.5 g daily, Tylenol 325 mg 2 tablets 4 times a day as needed for pain, nitroglycerin 0.4 mg sublingual every 5 minutes as needed for anginal pain. REVIEW OF SYSTEMS: Ten-point review of systems negative other than that mentioned in the HPI. PHYSICAL EXAMINATION: APPEARANCE: He is well developed. HEENT: Sclerae white. Mucous membranes are moist. NECK: Normal appearance. Trachea midline. JVP normal. RESPIRATORY: Breathing is nonlabored. No murmurs, rubs, or gallops. Lungs sounds are clear. CARDIOVASCULAR: Heart rate regular. No murmurs, rubs. ABDOMEN: Nontender with normal bowel sounds. SKIN: No rashes. Warm and dry. NEUROLOGIC: He is grossly oriented to person, place, and time. He has a normal gait. PSYCHIATRIC: Mood is normal. Affect is appropriate. INVESTIGATIONS: 1. Troponin #1, 0.050. Troponin #2, 0.278. 2. EKG: Sinus rhythm with right bundle branch block. Old inferior infarct. Chest x-ray: Heart size and pulmonary vascular are normal. Coronary stents are noted. No active cardiopulmonary disease is seen. LABORATORY: Drawn on 01/26/2018: White count 8.82, RBC 5.48, hemoglobin 17.1, hematocrit 50.5, platelet count 258, MPV 8.4. Chemistry drawn 01/26/2018: Sodium 142, potassium 4.2, chloride 101, carbon dioxide 32, anion gap 11. BUN 19 , creatinine 0.8. Estimated GFR greater than 60. Glucose 114. Calcium 10.1. Point of care troponin 0.05. Troponin #2 drawn at 7:45, 0.278. IMPRESSION: At bedside, he reports that he had noticed his anginal symptoms, which are midscapular back discomfort that radiate up into his neck and on into his head, first noticing this 2 days ago, lasting about 1 hour. It went away and then, last evening he again noticed the same discomfort which was similar to his anginal symptoms. He decided to go to the emergency room for further evaluation. He did have 2 stents placed 1 year ago. His EKG shows no infarct pattern. Troponin #1 was slightly elevated at 0.050; Troponin #2, drawn at 7:45 a.m., 0.2278. He reports that he feels completely back to normal. He does not feel that this is his heart. He thinks that he likely was doing some activities over the last 2 days that have caused some musculoskeletal discomfort. In the past, he has been short of breath with these past stent placements. He has had no shortness of breath associated with his current symptoms. We discussed option of doing a nuclear stress test versus a cardiac angiogram. He prefers doing the nuclear stress test. I will further review this with Dr. Marko García to determine the best approach to further evaluating his symptoms. I have gone ahead and ordered a nuclear stress test. However, we may decide to proceed with cardiac angiogram. At this time, he is asymptomatic and stable. /[id number]/MODL MTDD
--- NOTE | 2018-01-26 12:52 | PDPROPOC ---
Sedation Plan of Care Sedation Plan of Care: vital signs stable, mental status noted, patient educated of risks, benefits, alternatives, patient can tolerate sedation ASA Classification: ASA 2 Planned drugs: fentanyl, midazolam Mallampati Score: Class 1 Mallampati Reference Image: Patient passed 3-3-2 rule?: Yes
--- NOTE | 2018-01-26 12:52 | PDHPUP ---
History & Physical Update H&P update statement: This history and physical update is based on an assessment of the patient which was completed after admission or registration (within 24 hours), but prior to the surgery/procedure. H&P update: H&P reviewed & patient examined, no change in patient's condition since H&P completed
[2018-01-26] MEDS ORDERED: ATROPINE SULFATE 1 MG/10 ML SYR IVP PRN (13:27)
[2018-01-26] MEDS ORDERED: HEPARIN 10,000 UNIT/10 ML MDV (1,000 UNIT/ML) IVP PRN (13:30)
--- NOTE | 2018-01-26 13:37 | PDDXCAT ---
Diagnostic Cath Note - . Date: 01/26/18 Merchandise Handler: Ricky Indication: other (Unstable angina pectoris. Known coronary artery disease.) - Procedure Access: right wrist Procedure: left heart catheterization, coronary angiography, left ventriculogram - Materials Left Heart Cath size: 5F Left Heart Cath materials: JL3.5, JR4.0, pigtail - Findings-Left Heart Catheterization LM: This is a small caliber vessel which bifurcates into the LAD and circumflex. There is ostial tapering down to about 1.5-2 mm resulting in what appears to be a high-grade ostial lesion. LAD: This is a caliber vessel. There are multiple small diagonal branches noted. The proximal segment is noted to be stented. There is an area of high grade in stent restenoses within the previously placed stents in the proximal LAD. Additionally, there was a 50% mid LAD lesion. This vessel is collateralized via the right coronary artery. LCX: This is a large caliber vessel. The 1st obtuse marginal branch bifurcates extensively. The superior branch is extensively stented. There is an 80% lesion noted within this previously placed stent in the superior branch of the obtuse marginal. RCA: This is a large caliber vessel which is dominant. The PDA and 2 posterolateral branches are noted. The proximal and mid vessel are noted to be small extensively stented. The stents appeared to be widely patent. There are no obstructive lesions identified in this system. There is right to left collateralization of the left anterior descending noted. LVEF: 60-65%. Wall motion: Akinesis of the basal inferior wall. 2+ mitral regurgitation. Complications: None. Estimated blood loss: <50ml Closure method: TR Band Assessment: 1. Extensive epicardial coronary artery disease as described above including high-grade disease of the ostial left main. There are 2 areas of in stent restenoses. 1 involves the proximal LAD while the other involves the superior branch of a large obtuse marginal branch. 2. Preserved left ventricular systolic function with evidence of basal inferior wall akinesis. 3. 2+ mitral regurgitation. Plan: At this point, given the patient's extensive CAD history and recurrent restenoses as well as the current involvement of the proximal LAD and ostial left main I think the patient would be best served by consideration for multivessel coronary artery bypass graft surgery. Intervention: None. Patient Problems: Problems Problem Status Onset Chest pain Acute
[2018-01-26] MEDS ORDERED: LOSARTAN POTASSIUM 25 MG TAB PO SCH (14:30)
[2018-01-26] MEDS: ANASTROZOLE 1 MG TAB PO SCH (14:53)
[2018-01-26] MEDS: TESTOSTERONE 1% 5 GM GEL PKT TD SCH (14:53)
[2018-01-26 15:48] LABS: PLATELET COUNT 216 10^3/uL (150-400)
[2018-01-26 16:00] LABS: INR 1.06 (0.83-1.16)
[2018-01-26] MEDS: NITROGLYCERIN 2% 1 GM PACKET TP SCH ×2 (17:26→23:12)
[2018-01-26] MEDS: HEPARIN/DEXTROSE 500 ML IV SCH (17:29)
[2018-01-26] MEDS: OLMESARTAN MEDOXOMIL 20 MG TAB PO SCH (20:02)
--- NOTE | 2018-01-26 23:10 | HOSPPROG ---
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 Upgrade to inpatient admission status for reasonable medical necessity and anticipated LOS > 48hrs for Acute Coronary Syndrome 2/2 MVD requiring urgent CABG. Objective: Vital Signs Temp Pulse Resp BP Pulse Ox 36.6 C 73 16 144/80 H 91 L 01/26/18 19:55 01/26/18 19:55 01/26/18 19:55 01/26/18 20:02 01/26/18 19:55 Laboratory Results 01/26/18 15:31 01/25/18 01/26/18 01/27/18 05:59 05:59 05:59 Intake Total 0 800 Balance 0 800 PT 14.0 SEC (12.0-15.0) 01/26/18 15:31 INR 1.06 (0.83-1.16) 01/26/18 15:31 ICD10 Worksheet Patient Problems: Problems Problem Status Onset Chest pain Acute
[2018-01-27] MEDS: CYCLOBENZAPRINE 10 MG TAB PO PRN ×2 (00:40→20:59)
[2018-01-27] MEDS: NITROGLYCERIN 2% 1 GM PACKET TP SCH ×3 (06:31→17:08)
--- NOTE | 2018-01-27 08:57 | SOAPPROG ---
SOAP Progress Note Assessment/Plan: Assessment: This is a 67-year-old male who has known coronary artery disease dating back to 2004 at which time he presented an acute inferior infarct. Since then, he has had percutaneous revascularization and stenting of not only the RCA but also the LAD and circumflex systems. He now presents with unstable angina pectoris. Angiography indicates in stent restenosis of the proximal LAD and large 1st obtuse marginal branch. Additionally, his left main demonstrates severe ostial and proximal disease. Because of his propensity to develop significant in stent restenoses and the development of ostial LAD disease it is thought that he would be best served at this point was surgical revascularization. An echocardiogram has been ordered to assess his valvular anatomy as his LV-gram indicated at least 2+ mitral regurgitation. He is currently medically stabilized with nitroglycerin paste and IV heparin. 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 Plan: 1. Continue nitroglycerin paste and IV heparin. 2. Cardiothoracic surgery evaluation today. 3. Echocardiogram today to assess his valvular anatomy. 4. He has stated that he would like to talk to his primary honing machine operator tool, Dr. Jose Ramon Gardiner. I have contacted Dr. Gardiner see if he can place a call to this patient. 01/27/18 08:54 Subjective: Today he is doing well. He has not had any recurrent chest discomfort overnight and has remained in sinus rhythm. Cardiothoracic surgery is planning to see and evaluate him today. He has not yet had his echocardiogram. Carotid duplex scan did not demonstrate any obstructive disease. Objective: Vital Signs Temp Pulse Resp BP Pulse Ox 36.3 C 72 19 122/67 H 93 01/26/18 23:35 01/26/18 23:35 01/26/18 23:35 01/26/18 23:35 01/26/18 23:35 Laboratory Results 01/26/18 15:31 01/26/18 01/27/18 01/28/18 05:59 05:59 05:59 Intake Total 0 1200 Balance 0 1200 PT 14.0 SEC (12.0-15.0) 01/26/18 15:31 INR 1.06 (0.83-1.16) 01/26/18 15:31 Physical Exam - Physical Exam General Appearance: WD/WN, no apparent distress Neck: non-tender, full range of motion Respiratory: chest non-tender, lungs clear Cardiac/Chest: normal peripheral pulses, regular rate, rhythm, other (Right radial access site is soft without significant ecchymosis or hematoma), No gallop, No JVD, No bradycardia, No tachycardia Peripheral Pulses: 2+: carotid (R), carotid (L) Abdomen: normal bowel sounds, non-tender Male Genitalia: deferred Rectal: deferred Neuro/Psych: alert, oriented x 3 ICD10 Worksheet Patient Problems: Problems Problem Status Onset Chest pain Acute
[2018-01-27] MEDS: ASPIRIN 325 MG TAB PO SCH (09:41)
[2018-01-27] MEDS: methylPREDNISolone 4 MG TAB PO SCH (09:41)
[2018-01-27] MEDS: OLMESARTAN MEDOXOMIL 20 MG TAB PO SCH (09:41)
[2018-01-27] MEDS: HEPARIN/DEXTROSE 500 ML IV SCH (09:42)
[2018-01-27] MEDS: TESTOSTERONE 1% 5 GM GEL PKT TD SCH (09:42)
--- NOTE | 2018-01-27 10:05 | PDMN ---
Medical Necessity Medical necessity: [facility] Cardiovascular Surgery or Procedure GR yo w/ chronic medical issues (asthma, MARGUERITE, anemia, celiac, HLD, afib, CAD, [place] 2004, cardiac cath x3 w/ PCI, cryoablation for afib, HTN, GERD, Sjogren syndrome, lyme disease, polymyalgia rheumatica) w/ shoulder blade and neck pain, initially OBS for cardiac monitoring, changed to IP status per MD order 01/26/18 @1406 for elevated troponin, taken to odd job laborer, dx w/ extensive epicardial coronary artery disease including high-grade disease of the ostial left main. There are 2 areas of in stent restenoses. 1 involves the proximal LAD while the other involves the superior branch of a large obtuse marginal branch, Preserved left ventricular systolic function with evidence of basal inferior wall akinesis, 2+ mitral regurgitation. Plan: At this point, given the patient' s extensive CAD history and recurrent restenoses as well as the current involvement of the proximal LAD and ostial left main I think the patient would be best served by consideration for multivessel coronary artery bypass graft surgery. Upgrade to inpatient admission status for reasonable medical necessity and anticipated LOS > 48hrs for Acute Coronary Syndrome 2/2 MVD requiring urgent CABG.
[2018-01-27] MEDS: NALTREXONE 4.5 MG PO SCH (10:25)
--- NOTE | 2018-01-27 10:59 | ASMTCMCOM ---
CM Note CM Note Notes: Chart reviewed for discharge planning purposes. He is to be evaluated by [facility] for revascularization of his coronary arteries. CM will follow for needs. Plan: TBD Date Signed: 01/27/2018 10:58 AM Electronically Signed By:Lamar Portillo RN
--- NOTE | 2018-01-27 14:18 | PDCONSULT ---
Db2 Dba Note: Full consult dictated. Pt with unstable angina and CAD with high grade LM stenosis. H/o A-fib s/p ablation. Risks, benefits and alternatives to CABG explained to pt. Surgery will be done by Dr. Bernal, who will see him tomorrow. Pt has questions about Maze procedure and closure of ROBERTO.
--- NOTE | 2018-01-27 14:27 | ECHO ---
[email or web address] [address] [address] Main: [phone] Fax: [email or web address] Echocardiogram Name: ARTEM LIMA MR#: [id number] Study Date: 01/27/2018 Study Time: 10:45 AM Date of : 1950 Age: 67 year(s) Height: 180.3 cm (71 in.) Weight: 90.27 kg (199 lb.) BSA: 2.1 m2 Gender: Male Examination: Echo Indication: MR as seen on [facility], pre-open heart Image Quality: Adequate Contrast: Requested by: Rick Gross BP: 138 mmHg/68 mmHg Heart Rate: Rhythm: Indication: MR as seen on [facility], pre-open heart Procedure Staff Claims Attorney: Shivani Devries RDCS Reading Physician: David Murphy MD Requesting Provider: Conclusions: 1)Normal LV size and systolic function with a LVEF of 55% and no focal wall motion abnormalities. 2)Mild concentric LVH noted. 3)Mild left atrial enlargement noted. 4)Aortic valve sclerosis without or AI noted. 5)Mild to moderate MR without MV prolapse. 6)Trivial TR noted. Measurements: Chambers Valvular Assessment AV/MV Valvular Assessment TV/PV Normal Normal Normal Name Value Range Name Value Range Name Value Range Ao Nuha (2D): 2.9 cm (1.4 cm-2.6 AV Vmax: 1.56 m/s (1 m/s-1.7 PV Vmax: 1.17 m/s (0.6 m/s-0.9 cm) m/s) m/s) IVSd (2D): 1.2 cm (0.6 cm-1.1 AV maxP mmHg ( - ) PV PGmax: 5 mmHg ( - ) cm) AV meanP mmHg ( - ) LVDd (2D): 5.1 cm (4.2 cm-5.9 CANELO (VTI): 2.2 cm ( - ) cm) MV E Vmax: 0.79 m/s ( - ) LVDs (2D): 3.7 cm (2.1 cm-4 MV A Vmax: 0.40 m/s ( - ) cm) MV E/A: 1.98 ( - ) LVPWd (2D): 1.2 cm (0.6 cm-1 cm) MV PHT: 0.073 s ( - ) LVOTd 1.9 cm 1.9 cm mm MVA (PHT): 3.0 s ( - ) LVEF (BP): 51 % (>=55 %) Visual EF: 55 % RVDd(2D): 3.2 cm (1.9 cm-3.8 cmmm) Continued Measurements: Chambers Valvular Assessment AV/MV Patient: ARTEM LIMA Study Date: 01/27/2018 Page 1 of 2 10:45 AM Name Value Name Value LADs: 4.4 cm MV DecTime: 246 m/s LADs Lon.8 cm MV E' Septal: 0.05 m/s LA Area: 20.1 cm2 MV E/E' Septal: 15.00 LA Volume: 62 ml MV E/E' Lateral: 7.60 LA Volume Index: 29.5 ml/m2 MR ERO: 0.240 cm2 RA Area: 18.9 cm2 MR PISA radius: 7 mm MR Reg. Volume: 33 ml Additional Vessels Name Value Ao Ascendin.9 cm Findings: Left Ventricle: Normal size left ventricle. Mild concentric LV hypertrophy. Normal global systolic LV function. The ejection fraction is visually estimated to be 55 %. No regional wall motion abnormality. Unable to assess diastolic dysfunction. Right Ventricle: Normal size right ventricle. Normal RV function. Left Atrium: The left atrium is mildly dilated. Right Atrium: The right atrium is borderline dilated. Mitral Valve: The mitral valve is normal in appearance and function. Mild mitral annular calcification. Mild to moderate mitral regurgitation. Aortic Valve: The aortic valve is tri-leaflet. Aortic sclerosis is present. There is no significant aortic valve regurgitation. No aortic valve stenosis is present. Tricuspid Valve: The tricuspid valve is normal in appearance and function. Trivial tricuspid valve regurgitation. Pulmonic Valve: The pulmonic valve is normal in appearance and function. There is no pulmonic regurgitation seen. Aorta: The aorta is normal. Normal size aortic root measuring 2.9 cm. Normal size ascending aorta measuring 2.9 cm. Pericardium: No pericardial effusion. No pleural effusion. (No Signature Object) Patient: ARTEM LIMA Study Date: 01/27/2018 Page 2 of 2 10:45 AM [id number]
--- NOTE | 2018-01-27 15:14 | GCON ---
DATE OF CONSULTATION: 01/27/2018 REASON FOR CONSULTATION: Unstable angina, coronary artery disease. Patient is a 67-year-old male with history of coronary artery disease and previous percutaneous coron parviz interventions who has been having pressure in his upper back radiating to his neck on and off for 2 days before admission to the hospital. The pressure has no aggravating or relieving factors. The re was no associated nausea or shortness of breath. Patient had a cardiac catheterization that showe d high-grade left main stenosis, severe left anterior descending artery and circumflex coronary arter y stenosis. PAST MEDICAL HISTORY: Significant for asthma; obstructive sleep apnea; pernicious anemia; celiac dis ease; hypogonadism; gastroesophageal reflux disease; hiatal hernia; coronary artery disease; hyperten estevan; hyperlipidemia; paroxysmal atrial fibrillation, status post cryoablation; Sjogren syndrome; Lym e disease; polymyalgia rheumatica; a history of urinary tract infection in the past. PAST SURGICAL HISTORY: Gastric fundoplication, appendectomy, eye surgery x4. MEDICATIONS: The list of medications was reviewed in the medical record. REVIEW OF SYSTEMS: 10-point review of systems was remarkable as noted above; rest negative. EXAMINATION: GENERAL: Patient is alert; oriented in time, place, and person. VITAL SIGNS: Blood p ressure 121/65. Pulse 76. Room air saturation 96%. Temperature 36.5. HEENT: Head is normocephali c, atraumatic. There is no icterus. NECK: Supple. No JVD, thyromegaly, or lymphadenopathy. LUNGS : Clear to auscultation bilaterally. HEART: Regular rate and rhythm. S1. S2. ABDOMEN: Soft. N ontender. Nondistended. No palpable masses. EXTREMITIES: No cyanosis or clubbing. There is trace to mild bilateral pitting pedal edema. NEURO: Grossly intact. SKIN: Unremarkable. un remarkable. Cardiac catheterization, which I reviewed personally, shows high-grade left main stenosis, 90% left a nterior descending artery stenosis with 80% circumflex, 80% oblique marginal artery stenosis. ASSESSMENT AND PLAN: 67-year-old male with unstable angina and severe coronary artery disease, inclu ding high-grade left main stenosis. I discussed with the patient the natural history of the disease and the management options. I explained to him the risks, benefits, and alternatives to coronary art blossom bypass grafting, and he has elected to proceed. Patient does have history of atrial fibrillation , for which he had ablation, and now he says he does have episodes of atrial fibrillation for short d uration. Patient may benefit from closure of left atrial appendage. Patient does also have more que stions about possible maze procedure. The surgery will be performed by Dr. Jose Ramon Bernal, and Dr. Sweetie boston will see the patient probably tomorrow, and he will be able to answer the questions about surgery w ith possible maze procedure. /[id number]/MODL
--- NOTE | 2018-01-27 18:51 | HOSPPROG ---
Hospitalist Progress Note Assessment/Plan: Assessment: 67-year-old male presents with acute coronary syndrome in the setting of multivessel coronary artery disease requiring CABG Plan: 1. Acute coronary syndrome. New problem this provider, further workup indicated. Evidenced by positive troponin level as well as flow limiting stenosis in multiple vessels on cardiac catheterization -EKG on presentation demonstrating right bundle branch block, Q-waves inferiorly , sinus mechanism, personally interpreted -discussed with Cardiothoracic surgery, Pola Gross, he reports to me that the patient be seen in consultation today and will have Dr. Bernal evaluate tomorrow for likely CABG -will get echocardiogram to evaluate valve determine whether this is necessary for surgery -checking hemoglobin A1c -carotid ultrasounds normal -continue nitro paste, heparin drip -patient currently not on beta-yana or ANIBAL-inhibitor secondary to allergy -continue monitor on tele, patient unsafe to discharge home prior to surgery 2. Obstructive sleep apnea. Continue CPAP 3. Polymyalgia rheumatica. Continue home dosage of steroids 4. Testosterone deficiency. Continue repletion therapy Diet. Cardiac Prophylaxis. High risk patient, currently on heparin drip Code. Full Disposition. Inpatient status for acute coronary syndrome with likely CABG. Subjective: Denies any ongoing right shoulder or chest pain Objective: Vital Signs Temp Pulse Resp BP Pulse Ox 36.9 C 109 H 17 133/62 H 98 01/27/18 16:00 01/27/18 16:00 01/27/18 16:00 01/27/18 16:00 01/27/18 16:00 Laboratory Results 01/26/18 15:31 01/26/18 01/27/18 01/28/18 05:59 05:59 05:59 Intake Total 850 1480 Balance 850 1480 PT 14.0 SEC (12.0-15.0) 01/26/18 15:31 INR 1.06 (0.83-1.16) 01/26/18 15:31 - Physical Exam Constitutional: no apparent distress, not in pain, chronically ill appearing, No uncomfortable Cardiovascular: systolic murmur (1/6 at the apex), No irregularly irregular, No tachycardia, No edema Respiratory: no respiratory distress, no rales or rhonchi, clear to auscultation Gastrointestinal: normoactive bowel sounds, soft, non-tender abdomen, No distension Musculoskeletal: other (No tenderness in left lumbar paraspinal muscles) Neurologic: AAOx3, No facial droop Psychiatric: interacting appropriately, not anxious, not encephalopathic, thought process linear ICD10 Worksheet Patient Problems: Problems Problem Status Onset Chest pain Acute
[2018-01-27] MEDS: HYDROCODONE/APAP 5/325 TAB PO PRN (20:59)
[2018-01-28] MEDS: HEPARIN/DEXTROSE 500 ML IV SCH ×2 (01:15→18:34)
[2018-01-28] MEDS: NITROGLYCERIN 2% 1 GM PACKET TP SCH ×5 (05:43→23:24)
[2018-01-28] MEDS ORDERED: DOCUSATE SODIUM 100 MG CAP PO PRN (06:27)
--- NOTE | 2018-01-28 08:32 | HOSPPROG ---
Hospitalist Progress Note Assessment/Plan: Assessment: 67-year-old male presents with ACS in the setting of multivessel coronary artery disease requiring CABG # Acute coronary syndrome - Cath showed multivessel occlusive disease. This morning, he is stable, CP free, on heparin, awaiting CABG. Carotid ultrasound nl. A1c nl. Echo with nl EF 55%, no WMA, mod MR. -continue nitro paste, heparin drip -not on beta-yana or ANIBAL secondary to allergy -no statin 2/2 intolerance -CV surgery to evaluate today for possible CABG in am # Mild to mod MR - per CV surgery # Obstructive sleep apnea. Continue CPAP # Polymyalgia rheumatica. Continue home dosage of steroids # Testosterone deficiency. Continue repletion therapy Diet. Cardiac Prophylaxis. High risk patient, currently on heparin drip Code. Full Disposition. Cont inpt, awaiting CABG. Subjective: Pt feels well. No CP or SOB at rest. Uneventful night. No fevers/ chills or cough. Mentally preparing for CABG, possibly [email or web address] Objective: Vital Signs Temp Pulse Resp BP Pulse Ox 36.8 C 76 20 145/71 H 94 01/28/18 08:16 01/28/18 08:16 01/28/18 08:16 01/28/18 08:16 01/28/18 08:16 Laboratory Results 01/28/18 06:05 01/27/18 01/28/18 01/29/18 05:59 05:59 05:59 Intake Total 850 1814 Output Total 150 Balance 850 1664 PT 14.0 SEC (12.0-15.0) 01/26/18 15:31 INR 1.06 (0.83-1.16) 01/26/18 15:31 - Physical Exam Constitutional: no apparent distress Eyes: PERRL Ears, Nose, Mouth, Throat: moist mucous membranes Cardiovascular: regular rate and rhythym Respiratory: no respiratory distress, clear to auscultation Gastrointestinal: normoactive bowel sounds, soft, non-tender abdomen Skin: warm Musculoskeletal: full muscle strength Neurologic: AAOx3 Psychiatric: interacting appropriately ICD10 Worksheet Patient Problems: Problems Problem Status Onset Chest pain Acute
--- NOTE | 2018-01-28 09:27 | PDCARPN ---
Cardiology Progress Note Chief Complaint: Angina/back discomfort Assessment/Plan: Assessment/Plan: Yahir is a 67 y/o M with a history of CAD and multiple interventions admitted with [facility]. A angiogram by Dr. García showed instent restenosis of the proximal LAD and OM as well as severe LM disease. A echo showed preserved LV function with a EF of 55% and mild to moderate MR. He had a CV surgery consult on Sunday with plans to proceed with surgery by Dr. Bernal tomorrow afternoon. He is currently on Heparin and nitro paste and denies any further back or chest discomfort. He currently has no complaints. He also has a history of a.fib with CB ablation. He has occasional palps but has remained in NSR during this hospitalization. He is intolerant to multiple medications and is unable to tolerate statins. 01/28/18 09:23 Subjective: He denies any further angina/ back discomfort. He denies any CP or SOB. Objective: Vital Signs (8 Hrs) Temp Pulse Resp BP Pulse Ox 01/28/18 08:16 36.8 C 76 20 145/71 H 94 01/28/18 06:00 36.5 C 67 16 122/62 H 91 L Intake/Output (24 Hrs) 01/27/18 01/28/18 01/29/18 05:59 05:59 05:59 Intake Total 850 1814 Output Total 150 Balance 850 1664 Intake: Oral (ml) 1100 IV Intake (ml) 400 IV Infused (ml) 450 714 Heparin/Dextrose 500 ml @ 714 Per Protocol IV CONT JONAS Rx#:[id number] Ns 1,000 ml @ 75 mls/hr 450 IV CONT JONAS Rx#: [id number] Output: Urine (ml) 150 Urinal 150 Other: Intake Quantity Yes Sufficient Number of Voids Toilet 4 5 Result Diagrams: 01/28/18 06:05 01/26/18 03:05 Telemetry: NSR Echocardiogram: EF 55% with mild to moderate MR - Physical Exam Constitutional: WDWN, no apparent distress Cardiovascular: regular rate and rhythm, no murmurs, no rubs, no gallops Respiratory: clear to auscultate bilat, no crackles, no wheezes Skin: no edema Neurologic: AAOx3 ICD10 Worksheet Patient Problems: Problems Problem Status Onset Chest pain Acute
[2018-01-28] MEDS: TESTOSTERONE 1% 5 GM GEL PKT TD SCH (11:11)
[2018-01-28] MEDS: LIOTHYRONINE SODIUM 5 MCG TAB PO SCH ×2 (11:12→11:17)
[2018-01-28] MEDS: SENNOSIDES/DOCUSATE SODIUM TAB PO SCH ×2 (11:12→20:29)
[2018-01-28] MEDS: methylPREDNISolone 4 MG TAB PO SCH (11:12)
[2018-01-28] MEDS: OLMESARTAN MEDOXOMIL 20 MG TAB PO SCH (11:13)
[2018-01-28] MEDS: ASPIRIN 325 MG TAB PO SCH (11:13)
[2018-01-28] MEDS: NALTREXONE 4.5 MG PO SCH (11:16)
--- NOTE | 2018-01-28 15:03 | CPEKG ---
Test Reason : OPEN Blood Pressure : / mmHG Vent. Rate : 071 BPM Atrial Rate : 070 BPM P-R Int : 152 ms QRS Dur : 130 ms QT Int : 399 ms P-R-T Axes : 039 019 002 degrees QTc Int : 434 ms Sinus rhythm Right bundle branch block Inferior infarct, old Confirmed by Chandra Hawkins ([id number]) on 01/28/2018 3:03:19 PM Referred By: Confirmed By:Chandra Hawkins
--- NOTE | 2018-01-28 16:04 | PDCARCONS ---
Cardiology Consult Reason for Consult: Potential postoperative atrial fibrillation management Chief Complaint: Coronary artery disease Requesting Physician: Dr. Jose Ramon Bernal History of Present Illness: Dr. Jose Ramon Bernal asked me to see this patient because of planned CABG and Maze procedure and patient's questions regarding antiarrhythmic drug therapy postprocedure History Information - Allergies/Home Medication List Allergies/Adverse Reactions: ANIBAL Inhibitors Allergy (Unknown, Verified 01/26/18 11:09) Other-Enter Comments Beta-Blockers (Beta-Adrenergic Bloc Allergy (Unknown, Verified 01/26/18 11:09) Other-Enter Comments Calcium Channel Blocking Agents-Dih Allergy (Unknown, Verified 01/26/18 11:09) Other-Enter Comments NSAIDS (Non-Steroidal Anti-Inflamma Allergy (Unknown, Verified 01/26/18 11:09) Other-Enter Comments Proton Pump Inhibitors Allergy (Unknown, Verified 01/26/18 11:09) Other-Enter Comments Htuifen-Wei-Emm Reductase Inhibitor Allergy (Unknown, Verified 01/26/18 11:09) Other-Enter Comments Tricyclic Compounds Allergy (Unknown, Verified 01/26/18 11:09) Other-Enter Comments warfarin [From Coumadin] Allergy (Unknown, Verified 01/26/18 11:09) Other-Enter Comments SSRIs Allergy (Unknown, Uncoded 01/26/18 11:09) Other-Enter Comments Home Medications: Cyanocobalamin [Vitamin B12 1000MCG/ML (*)] 20,000 mcg IM Q7D 03/05/17 [Last Taken 3 Weeks Ago ~01/05/18] Liothyronine Sodium [Cytomel 5 mcg (*)] 2.5 mcg PO Q2D 03/05/17 [Last Taken Unknown] Naltrexone 4.5mg (Low Dose) 4.5 mg PO DAILY 03/05/17 [Last Taken Unknown] Testosterone [ANDROGEL 1% 5gm pkt (*)] 2.5 gm TD DAILY 03/05/17 [Last Taken Unknown] methylPREDNISolone [Medrol 4mg (*)] 4 mg PO DAILY 03/05/17 [Last Taken Unknown] Anastrozole [Arimidex 1 mg (*)] 1 mg PO Q7D 01/26/18 [Last Taken 01/18/18] Past Medical History: - Social History Smoking Status: Never smoked Physical Exam Physical Exam: Temp Pulse Resp BP Pulse Ox 37.0 C 90 15 154/78 H 93 01/28/18 15:16 01/28/18 15:16 01/28/18 15:16 01/28/18 15:16 01/28/18 15:16 Constitutional: no apparent distress, appears nourished Eyes: PERRL, EOMI Ears, Nose, Mouth, Throat: moist mucous membranes, hearing normal Cardiovascular: regular rate and rhythym, no murmur, rub, or gallop Respiratory: no respiratory distress, no rales or rhonchi Gastrointestinal: normoactive bowel sounds, soft, non-tender abdomen Skin: warm, normal color Neurologic: AAOx3, sensation intact bilaterally Psychiatric: interacting appropriately, not anxious, not encephalopathic Lab and Imaging 01/28/18 06:05 01/26/18 03:05 WBC 6.42 10^3/uL (3.80-9.50) 01/26/18 15:31 RBC 4.95 10^6/uL (4.40-6.38) 01/26/18 15:31 Hgb 15.4 g/dL (13.7-17.5) 01/26/18 15:31 Hct 45.7 % (40.0-51.0) 01/26/18 15:31 MCV 92.3 fL (81.5-99.8) 01/26/18 15:31 MCH 31.1 pg (27.9-34.1) 01/26/18 15:31 MCHC 33.7 g/dL (32.4-36.7) 01/26/18 15:31 RDW 12.9 % (11.5-15.2) 01/26/18 15:31 Plt Count 189 10^3/uL (150-400) 01/28/18 06:05 MPV 8.5 fL (8.7-11.7) L 01/26/18 15:31 Neut % (Auto) 59.2 % (39.3-74.2) 01/26/18 15:31 Lymph % (Auto) 29.4 % (15.0-45.0) 01/26/18 15:31 [place] % (Auto) 10.1 % (4.5-13.0) 01/26/18 15:31 Eos % (Auto) 0.2 % (0.6-7.6) L 01/26/18 15:31 Baso % (Auto) 0.6 % (0.3-1.7) 01/26/18 15:31 Nucleat RBC Rel Count 0.0 % (0.0-0.2) 01/26/18 15:31 Absolute Neuts (auto) 3.80 10^3/uL (1.70-6.50) 01/26/18 15:31 Absolute Lymphs (auto) 1.89 10^3/uL (1.00-3.00) 01/26/18 15:31 Absolute Monos (auto) 0.65 10^3/uL (0.30-0.80) 01/26/18 15:31 Absolute Eos (auto) 0.01 10^3/uL (0.03-0.40) L 01/26/18 15:31 Absolute Basos (auto) 0.04 10^3/uL (0.02-0.10) 01/26/18 15:31 Absolute Nucleated RBC 0.00 10^3/uL (0-0.01) 01/26/18 15:31 Immature Gran % 0.5 % (0.0-1.1) 01/26/18 15:31 Immature Gran # 0.03 10^3/uL (0.00-0.10) 01/26/18 15:31 PT 14.0 SEC (12.0-15.0) 01/26/18 15:31 INR 1.06 (0.83-1.16) 01/26/18 15:31 APTT 47.8 SEC (23.0-38.0) H 01/26/18 15:31 Heparin Anti-Xa, Unfract 0.57 IU/mL (0.32-0.67) 01/28/18 06:05 Sodium 142 mEq/L (135-145) 01/26/18 03:05 Potassium 4.2 mEq/L (3.3-5.0) 01/26/18 03:05 Chloride 101 mEq/L (97-110) 01/26/18 03:05 Carbon Dioxide 30 mEq/l (22-31) 01/26/18 03:05 Anion Gap 11 mEq/L (8-16) 01/26/18 03:05 BUN 19 mg/dL (7-23) 01/26/18 03:05 Creatinine 0.8 mg/dL (0.7-1.3) 01/26/18 03:05 Estimated GFR > 60 01/26/18 03:05 Glucose 114 mg/dL (70-100) H 01/26/18 03:05 Hemoglobin A1c 5.6 % (4.0-6.0) 01/26/18 15:31 Estim Average Glucose 114 mg/dL (68-126) 01/26/18 15:31 Calcium 10.1 mg/dL (8.5-10.4) 01/26/18 03:05 POC Troponin I 0.05 ng/mL (0.00-0.08) 01/26/18 03:09 Troponin I 0.278 ng/mL (0.000-0.034) H 01/26/18 07:45 A/P Assessment: 1. Coronary artery disease 2. Atrial fibrillation status post cryo balloon ablation at outside institution 4 years ago Plan: 67-year-old male known to me from previous outpatient visits, I last saw him more than 3 years ago. He has coronary artery disease and is scheduled for CABG. He has a history of atrial fibrillation and underwent cryo balloon PVI in [place] 4 years ago. Since his procedure he has had 2 brief episodes of palpitations. Maze procedure during CABG and left atrial appendage excision is appropriate. I talked to the patient about postoperative atrial fibrillation risk and necessary management. He is reluctant to start long-term antiarrhythmic drug therapy. I reassured him that amiodarone would be started at a low dose, 100 mg daily and we could consider stopping it in 30 days post surgery if he is maintaining sinus rhythm. He is also agreeable to taking metoprolol at a low dose, 25 mg twice daily, he does not have true allergy to beta-blockers. Thank you for the consult, I will be available as necessary.
[2018-01-28] MEDS: MUPIROCIN 2% 22 GM OINT NS SCH (20:29)
[2018-01-28] MEDS ORDERED: CHLORHEXIDINE GLUC HIBICLENS 118 ML BTL TP SCH (21:00)
[2018-01-28] MEDS: CYCLOBENZAPRINE 10 MG TAB PO PRN (23:24)
[2018-01-28] MEDS: HYDROCODONE/APAP 5/325 TAB PO PRN (23:24)
[2018-01-29] MEDS ORDERED: NOREPINEPHRINE BITARTRATE 16 MG in NS 250 ML IV ONE (06:00)
[2018-01-29] MEDS: NALTREXONE 4.5 MG PO SCH (09:44)
[2018-01-29] MEDS: methylPREDNISolone 4 MG TAB PO SCH (09:57)
[2018-01-29] MEDS: TESTOSTERONE 1% 5 GM GEL PKT TD SCH (09:57)
[2018-01-29] MEDS: ASPIRIN 325 MG TAB PO SCH (09:57)
[2018-01-29] MEDS: MUPIROCIN 2% 22 GM OINT NS SCH ×2 (09:58→21:04)
[2018-01-29] MEDS: NITROGLYCERIN 2% 1 GM PACKET TP SCH ×2 (09:58→20:18)
[2018-01-29] MEDS: SENNOSIDES/DOCUSATE SODIUM TAB PO SCH (09:59)
[2018-01-29] MEDS: OLMESARTAN MEDOXOMIL 20 MG TAB PO SCH (09:59)
[2018-01-29] MEDS ORDERED: MANNITOL 25% 12.5 GM/50 ML VIAL IVP ONE (10:00)
[2018-01-29] MEDS ORDERED: SODIUM BICARBONATE 20 MEQ, LIDOCAINE 1% 10 ML in NORMOSOL-R 1,000 ML MISC ONE (10:00)
[2018-01-29] MEDS ORDERED: PHENYLEPHRINE HCL 50 MG in NS 250 ML IV ONE (10:00)
[2018-01-29] MEDS ORDERED: CITRATE DEXTROSE SOLN 500 ML BAG MISC ONE (10:00)
[2018-01-29] MEDS ORDERED: ceFAZolin 2 GM/DEXTROSE 100 ML IV ONE (10:00)
[2018-01-29] MEDS ORDERED: INSULIN REGULAR HUMAN 100 UNIT in NS 100 ML IV ONE (10:00)
[2018-01-29] MEDS ORDERED: AMINOCAPROIC ACID 5 GM/20 ML VIAL IV ONE (10:00)
[2018-01-29] MEDS ORDERED: niCARdipine/NACL 200 ML IV ONE (10:00)
[2018-01-29] MEDS ORDERED: VERAPAMIL 5 MG, NITROGLYCERIN 2.5 MG, HEPARIN 500 UNIT, SODIUM BICARBONATE 0.2 MEQ in L... MISC ONE (10:00)
[2018-01-29] MEDS ORDERED: NS 1,000 ML IV ONE (10:00)
[2018-01-29] MEDS ORDERED: PROTAMINE SULFATE 50 MG/5 ML VIAL IVP ONE (10:10)
[2018-01-29] MEDS ORDERED: CALCIUM CHLORIDE 1 GM/10 ML INJ ONE ×3 (10:10→10:12)
[2018-01-29] MEDS ORDERED: MILRINONE/DEXTROSE/100 ML BAG IV ONE (10:10)
[2018-01-29] MEDS ORDERED: niCARdipine/NACL/200 ML BAG IV ONE ×2 (10:11→19:10)
[2018-01-29] MEDS ORDERED: AMIODARONE HCL 150 MG/3 ML VIAL ONE ×2 (10:11→10:13)
[2018-01-29] MEDS ORDERED: DOPamine/DEXTROSE 400 MG/250 ML BAG IV ONE (10:11)
[2018-01-29] MEDS ORDERED: HEPARIN 10,000 UNIT/10 ML MDV (1,000 UNIT/ML) ONE ×2 (10:11→10:13)
[2018-01-29] MEDS ORDERED: NA BICARBONATE 50 MEQ/50 ML VIAL ONE (10:11)
[2018-01-29] MEDS ORDERED: ADENOSINE 6 MG/2 ML VIAL ONE (10:12)
[2018-01-29] MEDS ORDERED: ALBUMIN 5% 250 ML BOTTLE IV ONE (10:12)
[2018-01-29] MEDS ORDERED: ceFAZolin 1 GM VIAL ONE (10:12)
[2018-01-29] MEDS ORDERED: NITROGLYCERIN/D5W 50 MG/250 ML BOTTLE IV ONE (10:12)
[2018-01-29] MEDS ORDERED: LIDOCAINE 2% 100 MG/5 ML SYR ONE (10:13)
[2018-01-29] MEDS ORDERED: CITRATE DEXTROSE SOLN 500 ML BAG ONE (10:13)
[2018-01-29] MEDS ORDERED: MAGNESIUM SULFATE 1 GM/2 ML VIAL ONE (10:13)
[2018-01-29] MEDS ORDERED: methylPREDNISolone SOD SUCC 1 GM/8 ML VIAL ONE (10:14)
[2018-01-29] MEDS ORDERED: MINERAL OIL 10 ML VIAL ONE (10:58)
[2018-01-29] MEDS ORDERED: VERAPAMIL 5 MG/2 ML VIAL ONE (10:58)
[2018-01-29] MEDS ORDERED: PAPAVERINE HCL 60 MG/2 ML SDV ONE (10:58)
[2018-01-29] MEDS ORDERED: LR 1,000 ML IV ONE (11:37)
[2018-01-29] MEDS ORDERED: CEFAZOLIN 2 GM/DEXTROSE/100 ML BAG IV ONE (11:50)
--- NOTE | 2018-01-29 12:25 | PDHPUP ---
History & Physical Update H&P update statement: This history and physical update is based on an assessment of the patient which was completed after admission or registration (within 24 hours), but prior to the surgery/procedure. H&P update: H&P reviewed & patient examined H&P changes: Petersen Maze IV planned. Cardiac med sensitivities and potential antiarrhythmic prophylaxis reviewed by clinical pharmacist and Dr Flores. Patient agreeable to low dose amiodarone and low dose BB. Mitral valve repair possible dependent on degree of MR by intraop MORGAN.
--- NOTE | 2018-01-29 12:34 | POSTANESTH ---
Post Anesthetic Evaluation Cardiovascular Status: Normal, Stable Respiratory Status: Normal, Stable Level of Consciousness/Mental Status: Can Participate in Eval Pain Control: Adequate, Prn Tx Ordered Nausea/Vomiting Control: Adequate, Prn Tx Ordered Complications Possibly Related to Anesthesia: None Noted
[2018-01-29] MEDS ORDERED: MIDAZOLAM 2 MG/2 ML VIAL IVP ONE (12:37)
--- NOTE | 2018-01-29 12:37 | PDANEPAE ---
ANE History of Present Illness 67 yo cabg ANE Past Medical History - Cardiovascular History Hx Hypertension: Yes Hx Arrhythmias: Yes Hx Chest Pain: Yes Hx Coronary Artery / Peripheral Vascular Disease: Yes Hx CHF / Valvular Disease: Yes - Pulmonary History Hx COPD: No Hx Asthma/Reactive Airway Disease: No Hx Recent Upper Respiratory Infection: No Hx Oxygen in Use at Home: No Hx Sleep Apnea: Yes Sleep Apnea Screening Result - Last Documented: Positive - Endocrine History Hx Diabetes: No - Chronic Pain History Chronic Pain: No ANE Review of Systems Review of Systems: - Exercise capacity METS (RN): 3 METS ANE Patient History - Allergies Allergies/Adverse Reactions: ANIBAL Inhibitors Allergy (Unknown, Verified 01/26/18 11:09) Other-Enter Comments Beta-Blockers (Beta-Adrenergic Bloc Allergy (Unknown, Verified 01/26/18 11:09) Other-Enter Comments Calcium Channel Blocking Agents-Dih Allergy (Unknown, Verified 01/26/18 11:09) Other-Enter Comments NSAIDS (Non-Steroidal Anti-Inflamma Allergy (Unknown, Verified 01/26/18 11:09) Other-Enter Comments Proton Pump Inhibitors Allergy (Unknown, Verified 01/26/18 11:09) Other-Enter Comments Jevjgoo-Vpp-Zfh Reductase Inhibitor Allergy (Unknown, Verified 01/26/18 11:09) Other-Enter Comments Tricyclic Compounds Allergy (Unknown, Verified 01/26/18 11:09) Other-Enter Comments warfarin [From Coumadin] Allergy (Unknown, Verified 01/26/18 11:09) Other-Enter Comments SSRIs Allergy (Unknown, Uncoded 01/26/18 11:09) Other-Enter Comments - Home Medications Home Medications: Cyanocobalamin [Vitamin B12 1000MCG/ML (*)] 20,000 mcg IM Q7D 03/05/17 [Last Taken 3 Weeks Ago ~01/05/18] Liothyronine Sodium [Cytomel 5 mcg (*)] 2.5 mcg PO Q2D 03/05/17 [Last Taken Unknown] Naltrexone 4.5mg (Low Dose) 4.5 mg PO DAILY 03/05/17 [Last Taken Unknown] Testosterone [ANDROGEL 1% 5gm pkt (*)] 2.5 gm TD DAILY 03/05/17 [Last Taken Unknown] methylPREDNISolone [Medrol 4mg (*)] 4 mg PO DAILY 03/05/17 [Last Taken Unknown] Anastrozole [Arimidex 1 mg (*)] 1 mg PO Q7D 01/26/18 [Last Taken 01/18/18] - NPO status NPO Status: no food or drink >8 hours NPO Since - Liquids (Date): 01/28/18 NPO Since - Liquids (Time): 00:00 NPO Since - Solids (Date): 01/28/18 NPO Since - Solids (Time): 00:00 - Smoking Hx Smoking Status: Never smoked ANE Labs/Vital Signs - Labs Result Diagrams: 01/28/18 06:05 01/29/18 05:54 - Vital Signs Blood Pressure: 103/68 Heart Rate: 87 Respiratory Rate: 16 O2 Sat (%): 94 Height: 5 ft 11 in Weight: 90.5 kg ANE Physical Exam - Airway Mallampati Score: Class 2 Mouth exam: normal dental/mouth exam - Pulmonary Pulmonary: no respiratory distress - Cardiovascular Cardiovascular: regular rate and rhythym - ASA Status ASA Status: III ANE Anesthesia Plan Anesthesia Plan: general endotracheal anesthesia Lines/Monitors: arterial line, central line, MORGAN
[2018-01-29] MEDS ORDERED: ROCURONIUM 100 MG/10 ML VIAL ONE (13:34)
[2018-01-29] MEDS ORDERED: REMIFENTANIL HCL 1 MG VIAL ONE (13:44)
[2018-01-29] MEDS ORDERED: PROPOFOL/EMULSION 500 MG/50 ML BOTTLE IV ONE (13:44)
[2018-01-29] MEDS ORDERED: fentaNYL 100 MCG/2 ML INJ ONE ×2 (13:44→18:24)
[2018-01-29] MEDS ORDERED: ONDANSETRON 4 MG/2 ML VIAL ONE (17:22)
[2018-01-29] MEDS ORDERED: SUGAMMADEX SODIUM 200 MG/2 ML VIAL IVP ONE (17:22)
[2018-01-29] MEDS ORDERED: DEXAMETHASONE 4 MG/ML VIAL ONE (17:22)
[2018-01-29] MEDS ORDERED: niCARdipine/NACL 200 ML IV PRN (19:00)
[2018-01-29] MEDS ORDERED: POTASSIUM Cl (KCl) 50 ML IV PRN (19:00)
[2018-01-29] MEDS ORDERED: BISACODYL 10 MG SUPP PR PRN (19:00)
[2018-01-29] MEDS ORDERED: MAGNESIUM HYDROXIDE 30 ML UDCUP PO PRN (19:00)
[2018-01-29] MEDS ORDERED: MEPERIDINE 25 MG/0.5 ML AMP IVP PRN (19:00)
[2018-01-29] MEDS ORDERED: INSULIN REGULAR HUMAN 100 UNIT in NS 100 ML IV SCH (19:00)
[2018-01-29] MEDS ORDERED: D50W 25 GM/50 ML SYR IVP PRN (19:00)
[2018-01-29] MEDS ORDERED: ACETAMINOPHEN 650 MG SUPP PR PRN (19:00)
[2018-01-29] MEDS ORDERED: SODIUM CL NASAL 45 ML BTL EACHNARE PRN (19:00)
[2018-01-29] MEDS ORDERED: CEPACOL LOZENGE PO PRN (19:00)
[2018-01-29] MEDS ORDERED: LACTULOSE 20 GM/30 ML UDCUP PO PRN (19:00)
[2018-01-29] MEDS ORDERED: POLYETHYLENE GLYCOL 3350 17 GM PKT PO PRN (19:00)
[2018-01-29] MEDS ORDERED: NS 1,000 ML IV SCH (19:00)
[2018-01-29] MEDS ORDERED: FAMOTIDINE 20 MG/NACL 50 ML IV ONE (19:15)
[2018-01-29] MEDS: ALBUMIN 5% 250 ML IV PRN ×2 (20:29→21:52)
[2018-01-29] MEDS: DEXMEDETOMIDINE HCL 400 MCG in NS 100 ML IV SCH (20:30)
[2018-01-29] MEDS ORDERED: HYDROCORTISONE 100 MG/2 ML VIAL IVP ONE (21:00)
[2018-01-29] MEDS ORDERED: CHLORHEXIDINE GLUCONATE 15 ML UDL PO SCH (21:00)
[2018-01-29] MEDS ORDERED: FAMOTIDINE 20 MG in NS 100 ML IV ONE (21:00)
--- NOTE | 2018-01-29 21:00 | GOP ---
DATE OF OPERATION: 01/29/2018 SURGEON: Jose Ramon Bernal DO PROGRAM PROJECT ANALYST: KORI Phan ANESTHESIOLOGIST: Heriberto Boogie MD PREOPERATIVE DIAGNOSIS: 1. Non-Q-wave infarction with severe 2-vessel coronary artery disease. 2. History of paroxysmal atrial fibrillation, status post previous cryoablation. 3. Mitral regurgitation, considered mild preoperatively. POSTOPERATIVE DIAGNOSIS: 1. Non-Q-wave infarction with severe 2-vessel coronary artery disease. 2. History of paroxysmal atrial fibrillation, status post previous cryoablation. 3. Mitral regurgitation, considered mild preoperatively. 4. Evidence of iilaenct-lm-tygkuh mitral insufficiency. PROCEDURE PERFORMED: 1. Coronary artery bypass grafting x2 with left internal mammary artery to the left anterior descend ing, saphenous vein graft to the lateral circumflex. 2. Petersen-Maze IV using radiofrequency and cryoablation as well as sensing, complete. 3. Mitral valve annuloplasty with #28 Physio annuloplasty ring. FINDINGS: Patient presented with a non-Q-wave infarction with classic anginal picture. He had had m ultiple prior stents. He also had a history of paroxysmal atrial fibrillation with ablation and subs equent episodes of paroxysmal atrial fibrillation since that time. He was not taking anticoagulants. He was seen in surgical consult. His echo suggested at least mild mitral insufficiency, although I felt it could be left alone. The plan was to look at it with intraoperative MORGAN, but I did not thin k it was significant. DESCRIPTION OF PROCEDURE: He was brought to the operating room, intubated. Monitoring lines were pl aced. He was prepped and draped in sterile classical manner. Intraoperative MORGAN revealed at least m oderate if not 3+ mitral insufficiency with central regurgitation due to annular dilatation. I felt it be prudent in this middle-aged gentleman to repair that at the time of surgery, particularly doing a Petersen-Maze IV. Verbal consent was obtained from his . Sternotomy was then performed. The mamm parviz was harvested. It was a good quality 2.5 mm vessel with brisk flow. He was heparinized, cannula rosendo with bicaval cannulae and tapes. Vein was harvested from the left thigh by ALE Castro, who [facility] assisted throughout the procedure. It was good quality vein measuring 3.7 mm in diameter. Initia lly sensing and testing were performed on both pulmonary veins. Sensing revealed incomplete lines bi laterally, and for that reason, we decided to proceed with full Petersen-Maze IV. We initiated cardiopulm onary bypass and encircled both pulmonary veins with multiple overlapping lesion sets with each of th e 3 lesion sets at completion being less than 5 seconds in duration until transmurality was confirmed . We then tested both and identify complete exit and entrance block in both pulmonary vein systems. We then arrested the heart, excised the tip of the atrial appendage, and placed radiofrequency into the superior pulmonary vein and did multiple ablations until they were under 5 seconds. A 35 mm atri al clip was placed across the base of the appendage. I then marked the coronary sinus at the terminu s of the circumflex and right coronary artery for later cryoablation. We then opened the left atrium in a standard fashion. I performed the epicardial cryo in line with the right inferior pulmonary ve in ablation line for 3 minutes. I then performed an isthmus lesion across the mitral valve in the sa me area. The floor lesion was performed with radiofrequency, and the dome lesion was performed with cryo for 3 minutes. I then inspected the mitral valve, and it was thickened and had evidence of leaf let retraction and annular dilatation. I felt that it was suitable for a ring and that I would not r eplace it in this gentleman, but would be able to adequately control it with a ring annuloplasty. Ci rcumferential sutures were placed. A 28 ring was placed after appropriate sizing. Distention of the ventricle revealed no regurgitation. The left atrium was then closed. CO2 had been infused through out the procedure. We then grafted the circumflex which was a good quality 3.4 mm vessel. I thought it was too large for a mammary, and for that reason, vein was utilized, brought off the ascending ao rta with a cross-clamp on. I then performed the mammary to the middle 1/3 of the LAD distribution ta cking it to the epicardium. The patient was placed in Trendelenburg. The cross-clamp was removed wi suction on the ascending aortic vent. We de-aired the patient through the apex and ascending aort a. When no further air was identified, he was easily weaned from bypass. The heparin was reversed w ith protamine. Intraoperative MORGAN revealed no regurgitation and no REVA with preserved biventricular function. Cannulas were removed and oversewn. Two ventricular pacing wires, 1 left pleural and 1 me diastinal drains were placed. The thymic fat and pericardium were closed. The sternum was closed in standard fashion. The patient was returned to ICU in sinus rhythm in stable condition. /[id number]/MODL
[2018-01-29] MEDS: CHLORHEXIDINE GLUCONATE 15 ML UDL PO SCH (21:26)
[2018-01-29] MEDS: ceFAZolin 2 GM/DEXTROSE 100 ML IV SCH (21:46)
[2018-01-29] MEDS: FAMOTIDINE 20 MG/NACL 50 ML IV SCH (21:46)
[2018-01-29] MEDS: ONDANSETRON 4 MG/2 ML VIAL IVP PRN ×2 (22:26→23:00)
[2018-01-29] MEDS: METOCLOPRAMIDE 10 MG/2 ML VIAL IVP PRN (23:00)
[2018-01-30] MEDS: fentaNYL 100 MCG/2 ML INJ IVP PRN ×6 (00:27→22:43)
[2018-01-30] MEDS ORDERED: NALOXONE HCL 0.4 MG/ML INJ ONE (02:02)
[2018-01-30] MEDS ORDERED: NALOXONE HCL 0.4 MG/ML INJ IVP ONE (02:02)
[2018-01-30] MEDS: DEXMEDETOMIDINE HCL 400 MCG in NS 100 ML IV SCH (04:22)
[2018-01-30 05:17] LABS: PLATELET COUNT 102 10^3/uL (150-400)
--- NOTE | 2018-01-30 06:25 | SOAPPROG ---
SOAP Progress Note Assessment/Plan: POD #1: CABGx2 (REECE-LAD, SVG-lat circ), MV annuloplasty with #28 Physio ring, Petersen-Maze IV, AtriClip ROBERTO, EVH L Severe CAD s/p CABGx2 - BB, ASA, statin when appropriate - CTs to bulb suction, AL/FC out once extubated PAF with h/o prior ablation s/p Petersen-Maze with AtriClip exclusion of ROBERTO - Coumadin, INR goal 2-3, duration as per CM 4 protocol Mod-severe MR s/p MV annuloplasty - Coumadin as per CM 4 Acute blood loss anemia - Stable without the need for transfusions Acute post-op respiratory insufficiency - Following commands, awake/alert - extubation imminent Subjective: Comfortable. Objective: Vital Signs Temp Pulse Resp BP Pulse Ox 36.0 C 55 L 12 125/58 H 98 01/29/18 19:15 01/30/18 05:00 01/30/18 05:00 01/30/18 05:00 01/30/18 05:00 Laboratory Results 01/30/18 05:00 01/30/18 05:00 01/29/18 01/30/18 01/31/18 05:59 05:59 05:59 Intake Total 1500 2139 Output Total 2280 Balance 1500 -141 PT 14.0 SEC (12.0-15.0) 01/26/18 15:31 INR 1.06 (0.83-1.16) 01/26/18 15:31 Physical Exam - Physical Exam General Appearance: WD/WN, alert, no apparent distress EENT: No scleral icterus (R), No scleral icterus (L) Neck: normal inspection Respiratory: No respiratory distress Cardiac/Chest: bradycardia (SR) Abdomen: non-tender, soft, No distended Skin: normal color, warm/dry Extremities: No pedal edema Neuro/Psych: no motor/sensory deficits, alert, normal mood/affect ICD10 Worksheet Patient Problems: Problems Problem Status Onset Acute blood loss anemia Acute Chest pain Acute Coronary stent restenosis Acute Mitral regurgitation Acute S/P CABG x 2 Acute ~01/29/18 S/P Maze operation for atrial fibrillation Acute ~01/29/18 S/P mitral valve repair Acute ~01/29/18 CAD in [place] artery Chronic MARGUERITE (obstructive sleep apnea) Chronic PAF (paroxysmal atrial fibrillation) Chronic
[2018-01-30] MEDS: HEPARIN 5,000 UNIT/0.5 ML INJ SC SCH ×3 (07:05→21:31)
[2018-01-30] MEDS: ceFAZolin 2 GM/DEXTROSE 100 ML IV SCH ×3 (07:05→21:31)
[2018-01-30] MEDS ORDERED: ASPIRIN 81 MG CHEWABLE TAB TUBE PRN (09:00)
[2018-01-30] MEDS: ASPIRIN 81 MG CHEWABLE TAB PO SCH (09:15)
[2018-01-30] MEDS: FAMOTIDINE 20 MG/NACL 50 ML IV SCH (09:15)
[2018-01-30] MEDS: LIOTHYRONINE SODIUM 5 MCG TAB PO SCH (09:15)
[2018-01-30] MEDS: ACETAMINOPHEN 325 MG TAB PO PRN ×2 (09:15→13:28)
[2018-01-30] MEDS: TESTOSTERONE 1% 5 GM GEL PKT TD SCH (09:16)
[2018-01-30] MEDS: MUPIROCIN 2% 22 GM OINT NS SCH ×2 (09:17→21:00)
[2018-01-30] MEDS: CHLORHEXIDINE GLUCONATE 15 ML UDL PO SCH (09:17)
[2018-01-30] MEDS: NALTREXONE 4.5 MG PO SCH (09:18)
[2018-01-30] MEDS: methylPREDNISolone 4 MG TAB PO SCH (09:36)
[2018-01-30] MEDS: ONDANSETRON DISINTEGRATING 4 MG TAB PO PRN ×2 (09:40→13:40)
--- NOTE | 2018-01-30 09:53 | ASMTCMCOM ---
CM Note CM Note Notes: Patient had a CABG x 2, MVR, MORGAN, Maze. He has been extubated and will start working with Therapies for discharge needs. Lives with his in [place]. Date Signed: 01/30/2018 09:52 AM Electronically Signed By:Kenzie Urbina LCSW
[2018-01-30] MEDS ORDERED: ALBUMIN 5% 250 ML BOTTLE IV ONE (11:07)
[2018-01-30] MEDS ORDERED: ALBUMIN 5% 250 ML IV ONE (11:30)
[2018-01-30] MEDS: ONDANSETRON 4 MG/2 ML VIAL IVP PRN (17:48)
[2018-01-30] MEDS: METOCLOPRAMIDE 10 MG/2 ML VIAL IVP PRN (19:42)
[2018-01-31] MEDS: fentaNYL 100 MCG/2 ML INJ IVP PRN ×6 (00:31→06:28)
[2018-01-31] MEDS: METOCLOPRAMIDE 10 MG/2 ML VIAL IVP PRN ×3 (01:34→18:34)
[2018-01-31] MEDS: HEPARIN 5,000 UNIT/0.5 ML INJ SC SCH (06:35)
[2018-01-31] MEDS: ceFAZolin 2 GM/DEXTROSE 100 ML IV SCH (06:36)
--- NOTE | 2018-01-31 07:09 | SOAPPROG ---
SOAP Progress Note Assessment/Plan: POD #2: CABGx2 (REECE-LAD, SVG-lat circ), MV annuloplasty with #28 Physio ring, Petersen-Maze IV, AtriClip ROBERTO, EVH L Severe CAD s/p CABGx2 - BB, ASA, statin when appropriate - CTs to bulb suction, AL/FC out PAF with h/o prior ablation s/p Petersen-Maze with AtriClip exclusion of ROBERTO - SR today - Coumadin "allergy" so will likely use Eliquis for thromboprophylaxis, duration as per 4 protocol Mod-severe MR s/p MV annuloplasty - ASA/Eliquis for thromboprophylaxis Acute blood loss anemia - Stable without the need for transfusions Acute post-op respiratory insufficiency - Resolved Subjective: Feel anxious and would like Valium (5-10 mg) as used in the past. Denies SOB. Pain at CT sites. Objective: Vital Signs Temp Pulse Resp BP Pulse Ox 37.3 C 98 22 H 139/69 H 92 01/31/18 04:00 01/31/18 06:00 01/31/18 06:00 01/31/18 06:00 01/31/18 06:00 Laboratory Results 01/31/18 05:25 01/31/18 05:25 01/30/18 01/31/18 02/01/18 05:59 05:59 05:59 Intake Total 2139 2830 Output Total 2280 1800 Balance -141 1030 PT 14.0 SEC (12.0-15.0) 01/26/18 15:31 INR 1.06 (0.83-1.16) 01/26/18 15:31 Physical Exam - Physical Exam General Appearance: WD/WN, alert, no apparent distress EENT: No scleral icterus (R), No scleral icterus (L) Neck: normal inspection Respiratory: No respiratory distress Cardiac/Chest: regular rate, rhythm Abdomen: non-tender, soft, No distended Skin: normal color, warm/dry Extremities: pedal edema Neuro/Psych: no motor/sensory deficits, alert, normal mood/affect, oriented x 3 ICD10 Worksheet Patient Problems: Problems Problem Status Onset Acute blood loss anemia Acute Chest pain Acute Coronary stent restenosis Acute Mitral regurgitation Acute S/P CABG x 2 Acute ~10/09/18 S/P Maze operation for atrial fibrillation Acute ~01/29/18 S/P mitral valve repair Acute ~01/29/18 CAD in [place] artery Chronic MARGUERITE (obstructive sleep apnea) Chronic PAF (paroxysmal atrial fibrillation) Chronic
[2018-01-31] MEDS: OXYCODONE/APAP 5/325 TAB PO PRN ×4 (07:24→20:09)
[2018-01-31] MEDS: TESTOSTERONE 1% 5 GM GEL PKT TD SCH (08:55)
[2018-01-31] MEDS: DIAZEPAM 5 MG TAB PO PRN ×3 (08:55→21:46)
[2018-01-31] MEDS: FAMOTIDINE 20 MG TAB PO SCH (08:55)
[2018-01-31] MEDS: ASPIRIN 81 MG CHEWABLE TAB PO SCH (08:56)
[2018-01-31] MEDS: MUPIROCIN 2% 22 GM OINT NS SCH (08:56)
[2018-01-31] MEDS: methylPREDNISolone 4 MG TAB PO SCH (08:56)
[2018-01-31] MEDS: traMADol 50 MG TAB PO PRN ×2 (09:54→18:34)
[2018-01-31] MEDS: NALTREXONE 4.5 MG PO SCH (10:07)
[2018-01-31] MEDS: SENNOSIDES/DOCUSATE SODIUM TAB PO SCH ×2 (10:08→20:10)
[2018-01-31] MEDS ORDERED: POTASSIUM CL 20 MEQ TAB PO ONE (13:27)
[2018-01-31] MEDS ORDERED: FUROSEMIDE 40 MG/4 ML VIAL IVP ONE (13:27)
[2018-01-31] MEDS: APIXABAN 5 MG TAB PO SCH ×2 (14:45→20:09)
[2018-01-31] MEDS: METOPROLOL TARTRATE 25 MG TAB PO SCH ×2 (14:45→20:08)
--- NOTE | 2018-01-31 15:37 | ASMTCMCOM ---
CM Note CM Note Notes: PT is recommending outpatient rehab services for patient while OT is saying home care and/or SNF. Patient will likely need outpatient cardiac rehab and will d/c from hospital independently. Patient is having surgery with Dr. Bernal. CM will follow. Date Signed: 01/31/2018 03:37 PM Electronically Signed By:Ina Santiago LCSW
[2018-02-01] MEDS: OXYCODONE/APAP 5/325 TAB PO PRN ×2 (03:12→07:28)
[2018-02-01] MEDS: DIAZEPAM 5 MG TAB PO PRN (03:13)
[2018-02-01] MEDS: ONDANSETRON DISINTEGRATING 4 MG TAB PO PRN ×3 (03:13→15:12)
--- NOTE | 2018-02-01 06:50 | SOAPPROG ---
SOAP Progress Note Assessment/Plan: POD #3: CABGx2 (REECE-LAD, SVG-lat circ), MV annuloplasty with #28 Physio ring, Petersen-Maze IV, AtriClip ROBERTO, EVH L Severe CAD s/p CABGx2 - BB/ASA, statin allergy - CTs to be removed today, AL/FC out PAF with h/o prior ablation s/p Petersen-Maze with AtriClip exclusion of ROBERTO - Remains in SR - BB for AF prophylaxis - Eliquis (Coumadin allergy) for thromboprophylaxis, duration as per 4 protocol Mod-severe MR s/p MV annuloplasty - ASA/Eliquis for thromboprophylaxis Acute blood loss anemia - Stable without the need for transfusions Acute post-op respiratory insufficiency - Resolved Subjective: Comfortable. Happy for tubes to be removed today. Denies pain/SOB. Objective: Vital Signs Temp Pulse Resp BP Pulse Ox 37.8 C 99 16 141/85 H 95 02/01/18 04:00 02/01/18 04:00 02/01/18 04:00 02/01/18 04:00 02/01/18 04:00 Laboratory Results 01/31/18 05:25 01/31/18 05:25 01/31/18 02/01/18 02/02/18 05:59 05:59 05:59 Intake Total 2830 580 Output Total 1800 1510 Balance 1030 -930 PT 14.0 SEC (12.0-15.0) 01/26/18 15:31 INR 1.06 (0.83-1.16) 01/26/18 15:31 Physical Exam - Physical Exam General Appearance: WD/WN, alert, no apparent distress EENT: No scleral icterus (R), No scleral icterus (L) Neck: normal inspection Respiratory: No respiratory distress Cardiac/Chest: regular rate, rhythm Abdomen: non-tender, soft, No distended Skin: normal color, warm/dry Extremities: pedal edema Neuro/Psych: no motor/sensory deficits, alert, normal mood/affect, oriented x 3 ICD10 Worksheet Patient Problems: Problems Problem Status Onset Acute blood loss anemia Acute Chest pain Acute Coronary stent restenosis Acute Mitral regurgitation Acute S/P CABG x 2 Acute ~01/29/18 S/P Maze operation for atrial fibrillation Acute ~01/29/18 S/P mitral valve repair Acute ~01/29/18 CAD in [place] artery Chronic MARGUERITE (obstructive sleep apnea) Chronic PAF (paroxysmal atrial fibrillation) Chronic
[2018-02-01] MEDS: FUROSEMIDE 40 MG TAB PO SCH (08:58)
[2018-02-01] MEDS: FAMOTIDINE 20 MG TAB PO SCH (08:58)
[2018-02-01] MEDS: POTASSIUM CL 20 MEQ TAB PO SCH (08:58)
[2018-02-01] MEDS: ASPIRIN 81 MG CHEWABLE TAB PO SCH (08:59)
[2018-02-01] MEDS: METOPROLOL TARTRATE 25 MG TAB PO SCH (08:59)
[2018-02-01] MEDS: methylPREDNISolone 4 MG TAB PO SCH (08:59)
--- NOTE | 2018-02-01 08:59 | CPEKG ---
Test Reason : OPEN Blood Pressure : / mmHG Vent. Rate : 075 BPM Atrial Rate : 000 BPM P-R Int : 165 ms QRS Dur : 128 ms QT Int : 424 ms P-R-T Axes : 084 -54 051 degrees QTc Int : 474 ms Normal sinus rhythm Ventricular premature complex Right bundle branch block Inferior infarct, old Lateral leads are also involved Confirmed by Stanley Syed ([id number]) on 02/01/2018 8:59:16 AM Referred By: Confirmed By:Stanley Syed
[2018-02-01] MEDS ORDERED: DIAZEPAM 5 MG TAB PO PRN (09:00)
[2018-02-01] MEDS: LIOTHYRONINE SODIUM 5 MCG TAB PO SCH (09:00)
[2018-02-01] MEDS: APIXABAN 5 MG TAB PO SCH ×2 (09:00→20:29)
--- NOTE | 2018-02-01 09:00 | CPEKG ---
Test Reason : OPEN Blood Pressure : / mmHG Vent. Rate : 073 BPM Atrial Rate : 000 BPM P-R Int : 167 ms QRS Dur : 130 ms QT Int : 429 ms P-R-T Axes : 090 -54 051 degrees QTc Int : 473 ms Atrial fibrillation Right bundle branch block Inferior infarct, old Atrial fibrillation has replaced normal sinus rhythm as noted on prior Confirmed by Stanley Syed ([id number]) on 02/01/2018 9:00:02 AM Referred By: Confirmed By:Stanley Syed
[2018-02-01] MEDS: SENNOSIDES/DOCUSATE SODIUM TAB PO SCH ×2 (09:01→20:29)
[2018-02-01] MEDS: TESTOSTERONE 1% 5 GM GEL PKT TD SCH (09:06)
--- NOTE | 2018-02-01 09:55 | ECHO ---
[email or web address] [address] [address] Main: [phone] Fax: Transthoracic Echocardiogram Name: ARTEM LIMA MR#: [id number] Study Date: 02/01/2018 Study Time: 07:51 AM Date of : 1950 Age: 67 year(s) Height: 180.3 cm (71 in.) Weight: 94.35 kg (208 lb.) BSA: 2.14 m2 Gender: Male Examination: Echo Indication: S/P CABG and MV annuloplasty with #28 Physio ring Image Quality: Technically Difficult Contrast: Requested by: Rick Gross BP: 139 mmHg/76 mmHg Heart Rate: Rhythm: Indication: S/P CABG and MV annuloplasty with #28 Physio ring Procedure Staff Hole Puncher Strap: Bing López [facility] Reading Physician: Randal Yanez MD Requesting Provider: Conclusions: Normal global systolic LV function. The ejection fraction is estimated to be 50-55 %. S/P MV annuloplasty with #28 Physio ring. No sigificant MR noted. Mean gradient across the valve 5mmHg. Trivial tricuspid valve regurgitation. Pulmonary artery pressure is not obtained due to inadequate TR jet. Measurements: Chambers Valvular Assessment AV/MV Valvular Assessment TV/PV Normal Normal Normal Name Value Range Name Value Range Name Value Range Ao Nuha (MM): 3.7 cm (2.2 cm-3.7 AV Vmax: 1.29 m/s (1 m/s-1.7 PV Vmax: 1.13 m/s (0.6 m/s-0.9 cm) m/s) m/s) IVSd (2D): 1.0 cm (0.6 cm-1.1 AV maxP mmHg ( - ) PV PGmax: 5 mmHg ( - ) cm) LVOT Vmax: 0.96 m/s (0.7 m/s-1.1 LVDd (2D): 4.5 cm (4.2 cm-5.9 m/s) cm) MV E Vmax: 1.72 m/s ( - ) LVDs (2D): 3.4 cm (2.1 cm-4 MV A Vmax: 0.73 m/s ( - ) cm) MV E/A: 2.36 ( - ) LVPWd (2D): 1.0 cm (0.6 cm-1 MV meanP mmHg ( - ) cm) MV PHT: 0.064 s ( - ) LVEF (2D): 50 (>=54 %) MVA (PHT): 3.4 s ( - ) EF Range: 50-55 % Continued Measurements: Chambers Valvular Assessment AV/MV Name Value Name Value LADs: 4.3 cm MV VTI: 38.50 cm Patient: ARTEM LIMA Study Date: 02/01/2018 Page 1 of 2 07:51 AM Additional Vessels Name Value Ao Ascendin.4 cm Findings: Left Ventricle: Normal size left ventricle. Borderline concentric LV hypertrophy. Normal global systolic LV function. The ejection fraction is estimated to be 50-55 %. Post-op septal motion noted. No obvious wall motion abnormalities noted however it is difficult to rule out due to poor endocardial definition. Unable to assess diastolic dysfunction. Right Ventricle: Normal size right ventricle. Normal RV function. Left Atrium: Grossly normal LA size. Right Atrium: Grossly normal RA size. Mitral Valve: S/P MV annuloplasty with #28 Physio ring. No sigificant MR noted. Mean gradient across the valve 5mmHg. Aortic Valve: The aortic valve is tri-leaflet. Aortic sclerosis is present. There is no aortic valve regurgitation. No aortic valve stenosis is present. Tricuspid Valve: The tricuspid valve is normal in appearance and function. Trivial tricuspid valve regurgitation. Pulmonary artery pressure is not obtained due to inadequate TR jet. Pulmonic Valve: Pulmonary valve not well visualized. Trivial pulmonic valve regurgitation. Aorta: Normal size aortic root measuring 3.7 cm. Normal size ascending aorta measuring 3.4 cm. IVC: The IVC is not well visualized. Pericardium: No pericardial effusion. (No Signature Object) Patient: ARTEM LIMA Study Date: 02/01/2018 Page 2 of 2 07:51 AM [id number]
[2018-02-01] MEDS: NALTREXONE 4.5 MG PO SCH (12:49)
[2018-02-01] MEDS: traMADol 50 MG TAB PO PRN ×3 (15:02→21:57)
[2018-02-01] MEDS: oxyCODONE IR 5 MG TAB PO PRN ×2 (16:23→21:03)
[2018-02-02] MEDS: ONDANSETRON DISINTEGRATING 4 MG TAB PO PRN (01:31)
[2018-02-02] MEDS: traMADol 50 MG TAB PO PRN ×2 (06:11→20:05)
[2018-02-02] MEDS: methylPREDNISolone 4 MG TAB PO SCH (08:11)
[2018-02-02] MEDS: APIXABAN 5 MG TAB PO SCH ×2 (08:11→20:06)
[2018-02-02] MEDS: ASPIRIN 81 MG CHEWABLE TAB PO SCH (08:12)
[2018-02-02] MEDS: FAMOTIDINE 20 MG TAB PO SCH (08:12)
[2018-02-02] MEDS: SENNOSIDES/DOCUSATE SODIUM TAB PO SCH ×2 (08:12→20:06)
[2018-02-02] MEDS: FUROSEMIDE 40 MG TAB PO SCH (08:13)
[2018-02-02] MEDS: LIOTHYRONINE SODIUM 5 MCG TAB PO SCH (08:13)
[2018-02-02] MEDS: POTASSIUM CL 20 MEQ TAB PO SCH (08:13)
[2018-02-02] MEDS: NALTREXONE 4.5 MG PO SCH (08:23)
--- NOTE | 2018-02-02 09:00 | SOAPPROG ---
SOAP Progress Note Assessment/Plan: Assessment: POD#4 CABGx2 (REECE-LAD, SV-OM1), MV annuloplasty with #28 Physio ring, Petersen-Maze IV, AtriClip ROBERTO, EVH LLE Severe CAD/ISR s/p CABGx2 - Secondary prevention with ASA and BB as tolerated (hx sig SB on metop). Myalgias on statins, hypolipidemic deferred to cards. - CTs out. - Adequately diuresing modest fluid overload. PAF with h/o prior ablation s/p Petersen-Maze with AtriClip exclusion of ROBERTO - Holding SR/ST - BB initiated and uptitrated to 25 mg BID but then held d/t development pauses with junct escape. Subsequent ST. 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 Duration as per Maze protocol. Mod-severe MR s/p MV annuloplasty - No sig MR by postop echo - Antithrombotic prophylaxis as per CAD/CM4 Acute expected blood loss anemia - Stable. No transfusions needed. - VTE prophylaxis with Eliquis Acute post-op respiratory insufficiency - Resolved Plan: Resume beta yana challenge. Maintain VVI backup at 50. Cont Lasix 40 mg daily. Cont inc activity as tolerated. Dispo - Home without services on Mon if rhythm stable. 02/02/18 08:58 Subjective: Improving strength and stamina. Satisfactory analgesia on Tylenol and rare Tramadol. Min appetite for cardiac diet and requests "regular" diet. Looking forward to a shower. Objective: Vital Signs Temp Pulse Resp BP Pulse Ox 36.8 C 88 16 124/71 H 98 02/02/18 07:19 02/02/18 07:19 02/02/18 07:19 02/02/18 07:19 02/02/18 07:19 Laboratory Results 01/31/18 05:25 01/31/18 05:25 02/01/18 02/02/18 02/03/18 05:59 05:59 05:59 Intake Total 580 1030 Output Total 1510 1360 Balance -930 -330 PT 14.0 SEC (12.0-15.0) 01/26/18 15:31 INR 1.06 (0.83-1.16) 01/26/18 15:31 Resting HR into 90s-110s. Poss rebound tachy off BB. Uptrending SBPs. Borderline suppl O2 req. Adequate fluid balance. +3.5 kg overall. Physical Exam - Physical Exam General Appearance: alert, no apparent distress Respiratory: lungs clear (grossly) Cardiac/Chest: regular rate, rhythm, other (Sternotomy and LLE venotomy CDI. CT sites clean and moist. V wires intact.) Abdomen: non-tender, soft Skin: warm/dry Extremities: swelling (trace dependent) ICD10 Worksheet Patient Problems: Problems Problem Status Onset Acute blood loss anemia Acute MARGUERITE (obstructive sleep apnea) Chronic S/P Maze operation for atrial fibrillation Acute ~01/29/18 PAF (paroxysmal atrial fibrillation) Chronic S/P mitral valve repair Acute ~01/29/18 S/P CABG x 2 Acute ~01/29/18 Mitral regurgitation Acute Coronary stent restenosis Acute CAD in [place] artery Chronic Chest pain Acute
--- NOTE | 2018-02-02 09:27 | ASMTCMCOM ---
CM Note CM Note Notes: Per reviewing most recently progress note from ALE Castro, pt will discharge without any services when medically stable. No other needs at this time. CM available for changes. Plan: Independent Date Signed: 02/02/2018 09:27 AM Electronically Signed By:BRAYDEN Garcia
[2018-02-02] MEDS: METOPROLOL TARTRATE 25 MG TAB PO SCH ×2 (10:43→20:06)
[2018-02-02] MEDS: TESTOSTERONE 1% 5 GM GEL PKT TD SCH (16:43)
[2018-02-02] MEDS: ANASTROZOLE 1 MG TAB PO SCH (16:44)
--- NOTE | 2018-02-03 08:45 | SOAPPROG ---
SOAP Progress Note Assessment/Plan: Assessment: POD#5 CABGx2 (REECE-LAD, SV-OM1), MV annuloplasty with #28 Physio ring, Petersen-Maze IV, AtriClip ROBERTO, EVH LLE Severe CAD/ISR s/p CABGx2 - Secondary prevention with ASA and BB as tolerated (hx sig SB on metop). Myalgias on statins, hypolipidemic deferred to cards. - CTs out. - Adequately diuresing modest fluid overload. PAF with h/o prior ablation s/p Petersen-Maze with AtriClip exclusion of ROBERTO - Holding SR/ST - BB initiated and uptitrated to 25 mg BID but then held d/t development pauses with junct escape. Subsequent ST. Metop resumed at lower dose yest and thus far well tolerated. 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 Duration as per Maze protocol. Mod-severe MR s/p MV annuloplasty - No sig MR by postop echo - Antithrombotic prophylaxis as per CAD/CM4 Acute expected blood loss anemia - Stable. No transfusions needed. - VTE prophylaxis with Eliquis Acute post-op respiratory insufficiency - Resolved Plan: Inc metoprolol to 25 mg BID. Maintain VVI backup at 50. Cont Lasix 40 mg daily. Cont inc activity as tolerated. Dispo - Home without services tomorrow afternoon if rhythm stable. 02/03/18 08:43 Subjective: Doing well. Ongoing functional gains. Adequate analgesia. +BM. Hopeful for home tomorrow. Objective: Vital Signs Temp Pulse Resp BP Pulse Ox 37.5 C 105 H 22 H 115/79 99 02/03/18 07:52 02/03/18 07:52 02/03/18 07:52 02/03/18 07:52 02/03/18 07:52 Laboratory Results 02/03/18 06:10 02/03/18 06:10 02/02/18 02/03/18 02/04/18 05:59 05:59 05:59 Intake Total 1030 400 Output Total 1360 950 Balance -330 -550 PT 14.0 SEC (12.0-15.0) 01/26/18 15:31 INR 1.06 (0.83-1.16) 01/26/18 15:31 Holding SR. Improving rate control on BB. No pauses or backup pacing. Borderline suppl O2 req. Adequate fluid balance. Approaching admit wt. - Pending Discharge Pending Discharge Within 24 Hours: Yes Pending Discharge Date: 02/04/18 Pending Discharge Time: 11:00 Physical Exam - Physical Exam General Appearance: alert, no apparent distress Respiratory: lungs clear (grossly) Cardiac/Chest: regular rate, rhythm, other (Sternotomy, CT sites and LLE venotomy CDI) Abdomen: non-tender, soft Skin: warm/dry Extremities: other (no visible edema) ICD10 Worksheet Patient Problems: Problems Problem Status Onset Acute blood loss anemia Acute Chest pain Acute Coronary stent restenosis Acute Mitral regurgitation Acute S/P CABG x 2 Acute ~01/29/18 S/P Maze operation for atrial fibrillation Acute ~01/29/18 S/P mitral valve repair Acute ~01/29/18 CAD in [place] artery Chronic MARGUERITE (obstructive sleep apnea) Chronic PAF (paroxysmal atrial fibrillation) Chronic
[2018-02-03] MEDS: TESTOSTERONE 1% 5 GM GEL PKT TD SCH (08:47)
[2018-02-03] MEDS: METOPROLOL TARTRATE 25 MG TAB PO SCH ×2 (08:49→21:49)
[2018-02-03] MEDS: FUROSEMIDE 40 MG TAB PO SCH (08:50)
[2018-02-03] MEDS: POTASSIUM CL 20 MEQ TAB PO SCH (08:50)
[2018-02-03] MEDS: LIOTHYRONINE SODIUM 5 MCG TAB PO SCH (08:51)
[2018-02-03] MEDS: SENNOSIDES/DOCUSATE SODIUM TAB PO SCH ×3 (08:51→21:51)
[2018-02-03] MEDS: APIXABAN 5 MG TAB PO SCH ×2 (08:52→21:30)
[2018-02-03] MEDS: FAMOTIDINE 20 MG TAB PO SCH (08:52)
[2018-02-03] MEDS: ASPIRIN 81 MG CHEWABLE TAB PO SCH (08:52)
[2018-02-03] MEDS: methylPREDNISolone 4 MG TAB PO SCH (08:53)
[2018-02-03] MEDS: traMADol 50 MG TAB PO PRN ×3 (08:53→21:30)
[2018-02-03] MEDS: NALTREXONE 4.5 MG PO SCH (08:55)
[2018-02-03] MEDS ORDERED: METOPROLOL TARTRATE 25 MG TAB PO ONE (12:00)
[2018-02-03] MEDS: ACETAMINOPHEN 325 MG TAB PO PRN (21:30)
[2018-02-04] MEDS ORDERED: SENNOSIDES/DOCUSATE SODIUM TAB PO PRN (07:43)
--- NOTE | 2018-02-04 07:44 | SOAPPROG ---
SOAP Progress Note Assessment/Plan: Assessment: POD#6 CABGx2 (REECE-LAD, SV-OM1), MV annuloplasty with #28 Physio ring, Petersen-Maze IV, AtriClip ROBERTO, EVH LLE Severe CAD/ISR s/p CABGx2 - Secondary prevention with ASA and BB as tolerated (hx sig SB on metop). Myalgias on statins, hypolipidemic deferred to cards. - CTs out. - Adequately diuresing modest fluid overload. PAF with h/o prior ablation s/p Petersen-Maze with AtriClip exclusion of ROBERTO - Holding SR/ST - BB initiated and uptitrated to 25 mg BID but then held d/t development pauses with junct escape. Subsequent ST. Metop resumed at lower dose but poorly tolerated (fatigue, nausea, anxiety). Switch to Atenolol desired and sanctioned by EP. 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 Duration as per Maze protocol. Mod-severe MR s/p MV annuloplasty - No sig MR by postop echo - Antithrombotic prophylaxis as per CAD/CM4 Acute expected blood loss anemia - Stable. No transfusions needed. - VTE prophylaxis with Eliquis Acute post-op respiratory insufficiency - Resolved Plan: Trial Atenolol 25 mg daily. Maintain VVI backup at 50. Stop lasix. Consider resume low dose Olmesartan if SBPs remain elev. Cont inc activity as tolerated. Dispo - Home without services tomorrow if rhythm stable. 02/04/18 07:44 Subjective: Better today. Miserable late afternoon and evening yest, exhausted/nervous/ nauseous - "I just can't tolerate metoprolol". Objective: Vital Signs Temp Pulse Resp BP Pulse Ox 36.9 C 95 14 96/61 L 94 02/04/18 07:29 02/04/18 07:29 02/04/18 07:29 02/04/18 07:29 02/04/18 07:29 Laboratory Results 02/03/18 06:10 02/03/18 06:10 02/03/18 02/04/18 02/05/18 05:59 05:59 05:59 Intake Total 400 760 Output Total 950 800 Balance -550 -40 PT 14.0 SEC (12.0-15.0) 01/26/18 15:31 INR 1.06 (0.83-1.16) 01/26/18 15:31 Last night's BB dose refused. Holding SR/ST. Uptrending SBPs (error in charting, this am SBP actually 149). Borderline suppl O2 req. Approaching admit wt. - Pending Discharge Pending Discharge Within 24 Hours: Yes Pending Discharge Date: 02/05/18 Pending Discharge Time: 11:00 Physical Exam - Physical Exam General Appearance: alert, no apparent distress Respiratory: lungs clear (grossly) Cardiac/Chest: regular rate, rhythm, other (Sternotomy and LLE venotomy CDI) Abdomen: non-tender, soft Skin: warm/dry Extremities: other (no visible edema) ICD10 Worksheet Patient Problems: Problems Problem Status Onset Acute blood loss anemia Acute MARGUERITE (obstructive sleep apnea) Chronic S/P Maze operation for atrial fibrillation Acute ~01/29/18 PAF (paroxysmal atrial fibrillation) Chronic S/P mitral valve repair Acute ~01/29/18 S/P CABG x 2 Acute ~01/29/18 Mitral regurgitation Acute Coronary stent restenosis Acute CAD in [place] artery Chronic Chest pain Acute
[2018-02-04] MEDS: LIOTHYRONINE SODIUM 5 MCG TAB PO SCH (09:33)
[2018-02-04] MEDS: FAMOTIDINE 20 MG TAB PO SCH (09:33)
[2018-02-04] MEDS: APIXABAN 5 MG TAB PO SCH ×2 (09:33→20:47)
[2018-02-04] MEDS: ASPIRIN 81 MG CHEWABLE TAB PO SCH (09:33)
[2018-02-04] MEDS: ATENOLOL 25 MG TAB PO SCH (09:33)
[2018-02-04] MEDS: methylPREDNISolone 4 MG TAB PO SCH (09:33)
[2018-02-04] MEDS: TESTOSTERONE 1% 5 GM GEL PKT TD SCH (09:34)
[2018-02-04] MEDS: NALTREXONE 4.5 MG PO SCH (09:35)
[2018-02-04] MEDS: METOPROLOL TARTRATE 25 MG TAB PO SCH (09:45)
[2018-02-04] MEDS: ACETAMINOPHEN 325 MG TAB PO PRN ×2 (10:34→21:38)
[2018-02-04] MEDS: traMADol 50 MG TAB PO PRN (21:37)
[2018-02-05] MEDS: ACETAMINOPHEN 325 MG TAB PO PRN ×2 (03:42→08:15)
--- NOTE | 2018-02-05 06:29 | SOAPPROG ---
[facility] Progress Note Assessment/Plan: POD #7: CABGx2 (REECE-LAD, SVG-lat circ), MV annuloplasty with #28 Physio ring, Petersen-Maze IV, AtriClip ROBERTO, EVH L Severe CAD s/p CABGx2 - BB/ASA for secondary prevention - Statin intolerant PAF with h/o prior ablation s/p Petersen-Maze with AtriClip exclusion of ROBERTO - Remains in SR - Tolerating BB (Atenolol started as per pt's request) - Eliquis (Coumadin allergy) for thromboprophylaxis, duration as per CM 4 protocol - Will clip PW prior to discharge Mod-severe MR s/p MV annuloplasty - ASA/Eliquis for thromboprophylaxis Acute blood loss anemia - Stable without the need for transfusions Acute post-op respiratory insufficiency - Resolved DVT prophylaxis - Eliquis/SCDs Disposition - Home today without services Subjective: Feels that beta-yana is not allowing him to exercise at his capacity. Denies pain/SOB. Objective: Vital Signs Temp Pulse Resp BP Pulse Ox 37.1 C 76 16 128/76 H 96 02/05/18 04:00 02/05/18 04:00 02/05/18 04:00 02/05/18 04:00 02/05/18 04:00 Laboratory Results 02/03/18 06:10 02/03/18 06:10 02/04/18 02/05/18 02/06/18 05:59 05:59 05:59 Intake Total 760 980 Output Total 800 675 Balance -40 305 PT 14.0 SEC (12.0-15.0) 01/26/18 15:31 INR 1.06 (0.83-1.16) 01/26/18 15:31 Physical Exam - Physical Exam General Appearance: WD/WN, alert, no apparent distress EENT: No scleral icterus (R), No scleral icterus (L) Neck: normal inspection Respiratory: No respiratory distress Cardiac/Chest: regular rate, rhythm Abdomen: non-tender, soft, No distended Skin: normal color, warm/dry Extremities: No pedal edema Neuro/Psych: no motor/sensory deficits, alert, normal mood/affect, oriented x 3 ICD10 Worksheet Patient Problems: Problems Problem Status Onset Acute blood loss anemia Acute Chest pain Acute Coronary stent restenosis Acute Mitral regurgitation Acute S/P CABG x 2 Acute ~01/29/18 S/P Maze operation for atrial fibrillation Acute ~01/29/18 S/P mitral valve repair Acute ~01/29/18 CAD in [place] artery Chronic MARGUERITE (obstructive sleep apnea) Chronic PAF (paroxysmal atrial fibrillation) Chronic
--- NOTE | 2018-02-05 07:26 | PDHOMEO2F ---
Home Oxygen Face to Face Home Orders: I certify that a physician or a nurse practitioner or physician's assistant vice president has had a [id number] encounter with this patient on the date of this order due to the diagnosis listed, which relates to the primary reason the patient requires home oxygen. Alternative treatments have been tried, or considered, and deemed ineffective. It is anticipated that supplemental oxygen will result in improvement with treatment. Home oxygen qualifying diagnosis: hypoxemia, sleep apnea, SOB, pleural effusions , mitral insufficiency, CAD SpO2 on room air (%): 87 Frequency of home oxygen needed: continuous Home oxygen liters per minute: 2 Home oxygen delivery device: nasal cannula Concentrator: Yes E-tanks for mobility and back up: Yes If ordering portable O2, is the patient mobile in the home?: Yes I certify that, based on these findings, the home oxygen is medically necessary for this patient for the following length of time. Length of time home oxygen needed: 1 month
[2018-02-05 07:55] VITALS: BP 140/77
[2018-02-05] MEDS: APIXABAN 5 MG TAB PO SCH (08:02)
[2018-02-05] MEDS: methylPREDNISolone 4 MG TAB PO SCH (08:02)
[2018-02-05] MEDS: LIOTHYRONINE SODIUM 5 MCG TAB PO SCH (08:02)
[2018-02-05] MEDS: ASPIRIN 81 MG CHEWABLE TAB PO SCH (08:02)
[2018-02-05] MEDS: ATENOLOL 25 MG TAB PO SCH (08:02)
[2018-02-05] MEDS: TESTOSTERONE 1% 5 GM GEL PKT TD SCH (08:03)
[2018-02-05] MEDS: NALTREXONE 4.5 MG PO SCH (08:03)
[2018-02-05] MEDS: FAMOTIDINE 20 MG TAB PO SCH (08:03)
--- NOTE | 2018-02-05 08:08 | PDDCSUM ---
Discharge Summary Discharge Summary: ADMISSION DATE: 01/26/18 DISCHARGE DATE: 02/05/18 DISCHARGE DIAGNOSES 1. Unstable angina with severe CAD and in-stent restenosis 2. Paroxysmal atrial fibrillation with h/o remote ablation 3. Moderate-severe MR 4. Acute blood loss anemia 5. Acute post-op respiratory insufficiency PROCEDURES 01/29/18, Jose Ramon Bernal: 1. CABGx2 (REECE-LAD, SVG-lateral circ) 2. MV annuloplasty with #28 Physio ring 3. Petersen-Maze IV with AtriClip exclusion of ROBERTO 4. EVH LLE HPI 77M with unstable angina and in-stent restenosis requiring surgical revascularization. Pt with h/o PAF s/p remote ablation. Intra-op MORGAN revealed mod-severe MR. HOSPITAL COURSE BY PROBLEM LIST 1. Unstable angina with severe CAD and in-stent restenosis - stable s/p CABGx2. Beta-yana and ASA prescribed for secondary prevention. Statin deferred d/t intolerance. 2. Paroxysmal atrial fibrillation with h/o remote ablation - s/p Petersen-Maze IV. Beta-yana prescribed for AF prophylaxis. Pt had one short episode of bradycardia and was observed for multiple days without additional bradycardia. Anticoagulation with Eliquis as pt with Coumadin intolerance. Duration of AC as per CM IV protocol. 3. Moderate-severe MR - stable s/p annuloplasty. AC with Eliquis as per CM IV protocol. 4. Acute blood loss anemia with thrombocytopenia - no transfusions required. 5. Acute post-op respiratory insufficiency - resolution with supportive care. CONDITION Good PERTINENT PHYSICAL EXAM 140/77, 82 SR, 96% on 2L/min NC, +1kg S1S2, No resp distress, ND, soft, NTP, LE with trace edema BL DISPOSITION Home ACTIVITY Pt was instructed on sternal precautions, activity limitations, and which problems to call [facility] with. Please see Discharge Plan in chart for specifics. DISCHARGE MEDICATIONS Continue: Cyanocobalamin [Vitamin B12 1000MCG/ML (*)] 20,000 mcg IM Q7D Liothyronine Sodium [Cytomel 5 mcg (*)] 2.5 mcg PO Q2D Naltrexone 4.5mg (Low Dose) 4.5 mg PO DAILY Testosterone [ANDROGEL 1% 5gm pkt (*)] 2.5 gm TD DAILY methylPREDNISolone [Medrol 4mg (*)] 4 mg PO DAILY Acetaminophen [Tylenol 325mg (*)] 650 mg PO QID PRN Anastrozole [Arimidex 1 mg (*)] 1 mg PO Q7D New: Apixaban [Eliquis] 5 mg PO BID Aspirin [Aspirin 81mg (*)] 81 mg PO DAILY Atenolol [Tenormin 25 mg (*)] 25 mg PO DAILY traMADol [Ultram 50 mg (*)] 50 mg PO Q6HRS PRN #30 O2 2L/min NC, continuous Stop Nitroglycerin PENDING STUDIES/LABS 1. CXR prior to surgical follow-up FOLLOW-UP 1. Jose Ramon Bernal, 02/12/18, 10:45 AM 2. Radames Flores, to be arranged at surgical f/u
[2018-02-05] MEDS: traMADol 50 MG TAB PO PRN (08:15)
--- NOTE | 2018-02-05 10:27 | ASDISCHSUM ---
Discharge Information Plan Status:Home with No Needs Medically Cleared to Leave:02/05/2018 Discharge Date:02/05/2018 CM D/C Disposition:Home, Routine, Self-Care ADT D/C Disposition:Home, Routine, Self-Care Projected Discharge Date:02/05/2018 Transportation at D/C:Family Discharge Delay Reason: Follow-Up Date:02/05/2018 Discharge Slot: Final Diagnosis:CP, Unstable angina, CAD, LM stenosis, Afib Placement Information Patient Contact Information Contact Name:MAISHA Relationship: Address:[address] [place] Alternate Phone: [facility]/Zip Code:[place] [address] Email: Financial Information Financial Class:Medicare Primary Plan Desc:MEDICARE INPATIENT Primary Plan Number:[id number] Secondary Plan Desc:[employer]/MDR SUPPLEMENT Secondary Plan Number:[id number] Assessment Information LACE LACE Length of stay for Answers: 7-13 days current admission Acuity / Level of Answers: Yes Care: Did the patient have an inpatient admission? Comorbidities - select Answers: Coronary Artery Disease all that apply Previous myocardial infarction Other Notes: Lyme disease # of Emergency department Answers: 1-2 visits in the last 6 months Score: 13 Date Signed: 02/05/2018 10:25 AM Electronically Signed By:Opal Esparza RN [facility] CM Progress Note CM Note CM Note Notes: Chart reviewed for discharge planning purposes. He is to be evaluated by [facility] for revascularization of his coronary arteries. CM will follow for needs. Plan: TBD Date Signed: 01/27/2018 10:58 AM Electronically Signed By:Lamar Portillo RN [facility] CM Progress Note CM Note CM Note Notes: Patient had a CABG x 2, MVR, MORGAN, Maze. He has been extubated and will start working with Therapies for discharge needs. Lives with his in [place]. Date Signed: 01/30/2018 09:52 AM Electronically Signed By:Kenzie Urbina LCSW [facility] CM Progress Note CM Note CM Note Notes: PT is recommending outpatient rehab services for patient while OT is saying home care and/or SNF. Patient will likely need outpatient cardiac rehab and will d/c from hospital independently. Patient is having surgery with Dr. Bernal. CM will follow. Date Signed: 01/31/2018 03:37 PM Electronically Signed By:Ina Santiago LCSW [facility] CM Progress Note CM Note CM Note Notes: Per reviewing most recently progress note from [facility] Castro, pt will discharge without any services when medically stable. No other needs at this time. CM available for changes. Plan: Independent Date Signed: 02/02/2018 09:27 AM Electronically Signed By:BRAYDEN Garcia Case Management Discharge Plan Note Case Management Discharge Discharge Order Complete? Answers: Yes Patient to Obtain Answers: via Family Medications Transportation Arranged Answers: Family/Friends Discharge Comments Notes: 02/05/2018 Case Management Note Pt to discharge home with family support and follow up as directed. Family to transport home. Date Signed: 02/05/2018 10:25 AM Electronically Signed By:Opal Esparza RN Intervention Information Intervention Type:*IM-Signed Date of Service:02/01/2018 02:03 PM Patient Type:Inpatient Staff Member:Ivanna Moss Hours: Discipline: Severity: Comment:
== END 2018-02-05 11:19 | disposition home or self-care (01) | DRG 217 ==
LOC: F2W 05:08 → OBSVTOIN 14:06 → F2N 01-29 12:08 → F2W 01-31 15:30
PROVIDERS: ADMIT Family Medicine; ATTEND Thoracic Surgery (Cardiothoracic Vascular Surgery)
PROC: B2111ZZ Fluoroscopy of Multiple Coronary Arteries using Low Osmolar Contrast (ICD-10-PCS; 2018-01-26)
PROC: 4A023N7 Measurement of Cardiac Sampling and Pressure, Left Heart, Percutaneous Approach (ICD-10-PCS; 2018-01-26)
PROC: B2151ZZ Fluoroscopy of Left Heart using Low Osmolar Contrast (ICD-10-PCS; 2018-01-26)
PROC: 02100Z9 Bypass Coronary Artery, One Artery from Left Internal Mammary, Open Approach (ICD-10-PCS; principal; 2018-01-29 12:30)
PROC: 5A1223Z Performance of Cardiac Pacing, Continuous (ICD-10-PCS; principal; 2018-01-29 12:30)
PROC: 02L70CK Occlusion of Left Atrial Appendage with Extraluminal Device, Open Approach (ICD-10-PCS; principal; 2018-01-29 12:30)
PROC: 06BQ4ZZ Excision of Left Saphenous Vein, Percutaneous Endoscopic Approach (ICD-10-PCS; principal; 2018-01-29 12:30)
PROC: 021009W Bypass Coronary Artery, One Artery from Aorta with Autologous Venous Tissue, Open Approach (ICD-10-PCS; principal; 2018-01-29 12:30)
PROC: B245ZZ4 Ultrasonography of Left Heart, Transesophageal (ICD-10-PCS; principal; 2018-01-29 12:30)
PROC: 02UG0JZ Supplement Mitral Valve with Synthetic Substitute, Open Approach (ICD-10-PCS; principal; 2018-01-29 12:30)
PROC: 025T0ZZ Destruction of Left Pulmonary Vein, Open Approach (ICD-10-PCS; principal; 2018-01-29 12:30)
PROC: 025S0ZZ Destruction of Right Pulmonary Vein, Open Approach (ICD-10-PCS; principal; 2018-01-29 12:30)
DX: I25.110 Atherosclerotic heart disease of native coronary artery with unstable angina pectoris (principal); D62 Acute posthemorrhagic anemia; T82.855A Stenosis of coronary artery stent, initial encounter; I34.0 Nonrheumatic mitral (valve) insufficiency; I48.0 Paroxysmal atrial fibrillation; R06.89 Other abnormalities of breathing; I10 Essential (primary) hypertension; G47.33 Obstructive sleep apnea (adult) (pediatric); E78.5 Hyperlipidemia, unspecified; M35.3 Polymyalgia rheumatica; K21.9 Gastro-esophageal reflux disease without esophagitis; I25.2 Old myocardial infarction; J45.909 Unspecified asthma, uncomplicated
CPT/HCPCS: 82435-PO; 82565-PO; 82947-PO; 84132-PO; 84295-PO; 84484-PO; 84520-PO; 85014-PO; 85520-90; 97110-GP; 97116-GP; 97161-GP; 97166-GO; 97530-GO; 97530-GP; 97535-GO; G8978-GP-CK; G8979-GP-CI; G8987-GO-CL; G8988-GO-CI; J0153; J0282; J0690; J1100; J1265; J1644; J1720; J1815; J1940; J2001; J2150; J2250; J2260; J2270; J2310; J2370; J2405; J2440; J2704; J2720; J2765; J2930; J3010; J3475; J3480; J7060; P9041; Q9967

== ENCOUNTER → 2018-02-12 | Outpatient (CLI) | payer OTHER, MEDICARE | LOC: FIMAGING 12:18 → EDSTATUS 12:19 | PROVIDERS: ATTEND Thoracic Surgery (Cardiothoracic Vascular Surgery) | DX: J90 Pleural effusion, not elsewhere classified (principal); J98.11 Atelectasis; I51.7 Cardiomegaly; Z95.5 Presence of coronary angioplasty implant and graft ==

== ENCOUNTER → 2018-02-26 | Outpatient (CLI) | payer OTHER, MEDICARE | LOC: FIMAGING 12:36 | PROVIDERS: ATTEND Thoracic Surgery (Cardiothoracic Vascular Surgery) | DX: J90 Pleural effusion, not elsewhere classified (principal); Z95.1 Presence of aortocoronary bypass graft ==

== ENCOUNTER → 2018-03-01 | Outpatient (CLI) | payer OTHER, MEDICARE | LOC: BHFA 13:30 | PROVIDERS: ATTEND Internal Medicine Cardiovascular Disease | DX: I48.0 Paroxysmal atrial fibrillation (principal); I49.3 Ventricular premature depolarization ==

== ENCOUNTER 2018-03-02 14:00 | Emergency (ER) | payer OTHER, MEDICARE ==
[2018-03-02 14:33] LABS: PLATELET COUNT 244 10^3/uL (150-400)
--- NOTE | 2018-03-02 14:37 | EDPHY ---
H & P Stated Complaint: dizziness x 2-3 hours, SOB, h/a Time Seen by Provider: 03/02/18 14:11 HPI/ROS: CHIEF COMPLAINT: Dizziness HISTORY OF PRESENT ILLNESS: 67-year-old male s/p CABG 4 weeks ago presents with dizziness. Onset of dizziness 3 hr ago. The dizziness described as feeling slightly off balance. No spinning sensation and does not feel like he might faint. Also has a slight headache. Taking Tylenol and thinks he took too much Tylenol 2 days ago. He typically takes NAC when he take Tylenol. On Eliquis and Atenolol in the post-op period, but felt meds were causing constipation, so stopped meds [address] Flores in the office yesterday, started ASA. Plan for Holter monitoring for persistent heart rate 100 in the postop period. Constipation for several days, no BM for 3 days and no urge to have BM. REVIEW OF SYSTEMS: complete 10 point ROS reviewed and is negative except for the noted elements in the HPI - Medical/Surgical History Hx Asthma: Yes Hx Chronic Respiratory Disease: Yes Hx Diabetes: No Hx Cardiac Disease: Yes Hx Renal Disease: No Hx Cirrhosis: No Hx Alcoholism: No Hx HIV/AIDS: No Hx Splenectomy or Spleen Trauma: No Other PMH: bypass 01/29/18, HTN, hypothyroidism, hypoadrenalism, A-Fib, celiac, low testosterone, CAD with stents x5 , sjrogrens syndrome, hiatal hernia, GERD, asthma, appy,, pernicious anemia - Social History Smoking Status: Never smoked Alcohol Use: Sober Drug Use: None - Physical Exam Exam: General Appearance: Alert, pleasant Eyes: Pupils equal and round, no conjunctival pallor or injection, no nystagmus ENT, Mouth: Mucous membranes moist Neck: Normal inspection Respiratory: Lungs are clear to auscultation Cardiovascular: Regular tachycardia, heart rate 100, no murmur Gastrointestinal: Abdomen is soft and nontender Neurological: A&O, nonfocal exam Skin: Warm and dry Extremities: Nontender, no pedal edema Psychiatric: Mood and affect normal Constitutional: Initial Vital Signs Temperature (C) 36.5 C 03/02/18 14:05 Heart Rate 105 H 03/02/18 14:05 Respiratory Rate 16 03/02/18 14:05 Blood Pressure 156/85 H 03/02/18 14:05 O2 Sat (%) 95 03/02/18 14:05 O2 Delivery Mode Room Air Allergies/Adverse Reactions: ANIBAL Inhibitors Allergy (Unknown, Verified 01/26/18 11:09) Other-Enter Comments Beta-Blockers (Beta-Adrenergic Bloc Allergy (Unknown, Verified 01/26/18 11:09) Other-Enter Comments Calcium Channel Blocking Agents-Dih Allergy (Unknown, Verified 01/26/18 11:09) Other-Enter Comments NSAIDS (Non-Steroidal Anti-Inflamma Allergy (Unknown, Verified 01/26/18 11:09) Other-Enter Comments Proton Pump Inhibitors Allergy (Unknown, Verified 01/26/18 11:09) Other-Enter Comments Xvvwyji-Gzj-Ggy Reductase Inhibitor Allergy (Unknown, Verified 01/26/18 11:09) Other-Enter Comments Tricyclic Compounds Allergy (Unknown, Verified 01/26/18 11:09) Other-Enter Comments warfarin [From Coumadin] Allergy (Unknown, Verified 01/26/18 11:09) Other-Enter Comments SSRIs Allergy (Unknown, Uncoded 01/26/18 11:09) Other-Enter Comments Home Medications: Medication Instructions Recorded Arimidex 03/02/18 Aspirin 81mg (*) 03/02/18 Naltrexone 03/02/18 Prednisone 03/02/18 Medical Decision Making - Diagnostics EKG Interpretation: EKG interpreted by me reveals sinus tachycardia, rate 101, right bundle branch block, inferior Q-waves consistent with old inferior infarct. Interpretation: Abnormal EKG Imaging Results: Imaging Impressions Chest X-Ray 03/02/18 14:12 Impression: Stable blunting of the left costophrenic angle compatible with small left pleural effusion with adjacent atelectasis and/or scarring. Head CT 03/02/18 14:33 Impression: Negative for acute abnormality; probable small vessel ischemic changes. Results called and discussed with Dr. Ivis Henderson on March 02, 2018 at 1615 hours. Chest/Thorax CTA 03/02/18 15:10 Impression: 1. No evidence of pulmonary embolic disease. 2. Prior bypass surgery. 3. See above report for additional findings. Results called and discussed with Dr. Ivis Henderson on March 02, 2018 at 1615 hours. Imaging: I viewed and interpreted images myself ED Course/Re-evaluation: This pt presents with dizziness. stat EKG reveals no evidence of ischemia or dysrhythmia. Neurologic exam is normal; no evidence for CVA. CXR: NAD. D-dimer elevated at 1.4, discussed with patient. Will proceed with CT pulmonary angiogram to rule out pulmonary embolism. CT results unremarkable and discussed with the patient. Feels fine when he is sitting and reading. Will ambulate. With ambulation, he felt somewhat dizzy, but had a steady gait. Orthostatics vital signs were normal. monitoring and evaluation advisor revealed normal sinus rhythm throughout. Laboratory tests are unremarkable except for previously mentioned D-dimer. Patient wishes to go home. Unclear etiology of sx. Will follow up with PCP if symptoms persist. Differential Diagnosis: Dizziness including but not limited to peripheral and central causes of vertigo , orthostatic causes including dehydration, severe anemia, pulmonary embolism, and blood loss. - Data Points Laboratory Results: Laboratory Results 03/02/18 14:20 03/02/18 14:20 03/02/18 03/02/18 03/02/18 14:26 14:23 14:20 WBC RBC Hgb Hct MCV MCH MCHC RDW Plt Count MPV Neut % (Auto) Lymph % (Auto) [place] % (Auto) Eos % (Auto) Baso % (Auto) Nucleat RBC Rel Count Absolute Neuts (auto) Absolute Lymphs (auto) Absolute Monos (auto) Absolute Eos (auto) Absolute Basos (auto) Absolute Nucleated RBC Immature Gran % Immature Gran # PT INR APTT D-Dimer Sodium 140 mEq/L mEq/L (135-145) Potassium 4.5 mEq/L mEq/L (3.3-5.0) Chloride 103 mEq/L mEq/L (97-110) Carbon Dioxide 25 mEq/l mEq/l (22-31) Anion Gap 12 mEq/L mEq/L (6-14) BUN 15 mg/dL mg/dL (7-23) Creatinine 0.7 mg/dL mg/dL (0.7-1.3) Estimated GFR > 60 Glucose 146 mg/dL H mg/dL (70-100) Calcium 9.9 mg/dL mg/dL (8.5-10.4) POC Troponin I 0.00 ng/mL ng/mL (0.00-0.08) NT-Pro-B Natriuret Pep 359 pg/mL H pg/mL (0-125) Acetaminophen < 10 mcg/mL L mcg/mL (10-30) 03/02/18 03/02/18 14:20 14:20 WBC 11.48 10^3/uL H 10^3/uL (3.80-9.50) RBC 4.83 10^6/uL 10^6/uL (4.40-6.38) Hgb 14.8 g/dL g/dL (13.7-17.5) Hct 45.4 % % (40.0-51.0) MCV 94.0 fL fL (81.5-99.8) MCH 30.6 pg pg (27.9-34.1) MCHC 32.6 g/dL g/dL (32.4-36.7) RDW 13.3 % % (11.5-15.2) Plt Count 244 10^3/uL 10^3/uL (150-400) MPV 8.2 fL L fL (8.7-11.7) Neut % (Auto) 80.6 % H % (39.3-74.2) Lymph % (Auto) 13.6 % L % (15.0-45.0) [place] % (Auto) 4.6 % % (4.5-13.0) Eos % (Auto) 0.1 % L % (0.6-7.6) Baso % (Auto) 0.5 % % (0.3-1.7) Nucleat RBC Rel Count 0.0 % % (0.0-0.2) Absolute Neuts (auto) 9.25 10^3/uL H 10^3/uL (1.70-6.50) Absolute Lymphs (auto) 1.56 10^3/uL 10^3/uL (1.00-3.00) Absolute Monos (auto) 0.53 10^3/uL 10^3/uL (0.30-0.80) Absolute Eos (auto) 0.01 10^3/uL L 10^3/uL (0.03-0.40) Absolute Basos (auto) 0.06 10^3/uL 10^3/uL (0.02-0.10) Absolute Nucleated RBC 0.00 10^3/uL 10^3/uL (0-0.01) Immature Gran % 0.6 % % (0.0-1.1) Immature Gran # 0.07 10^3/uL 10^3/uL (0.00-0.10) PT 13.4 SEC SEC (12.0-15.0) INR 1.00 (0.83-1.16) APTT 27.3 SEC SEC (23.0-38.0) D-Dimer 1.43 ug/mLFEU H ug/mLFEU (0.00-0.50) Sodium Potassium Chloride Carbon Dioxide Anion Gap BUN Creatinine Estimated GFR Glucose Calcium POC Troponin I NT-Pro-B Natriuret Pep Acetaminophen Medications Given: Discontinued Medications Sodium Chloride (Ns) 1,000 mls @ 0 mls/hr IV EDNOW ONE; Wide Open PRN Reason: Protocol Stop: 03/02/18 16:01 Last Admin: 03/02/18 16:04 Dose: 1,000 mls Magnesium Citrate (Magnesium Citrate) 300 ml PO EDNOW ONE Stop: 03/02/18 17:28 Last Admin: 03/02/18 17:32 Dose: 300 ml Point of Care Test Results: Chemistry 03/02/18 14:23 POC Troponin I 0.00 ng/mL ng/mL (0.00-0.08) Departure - Departure Disposition: Home, Routine, Self-Care Clinical Impression: Dizziness Condition: Good Instructions: Dizziness (ED) Additional Instructions: Return for worsening symptoms or any concerns. Referrals: LUCAS CROW [Primary Care Provider] - 2-3 days, call for appt.
[2018-03-02 14:59] LABS: PROTIME(PATIENT) 13.4 SEC (12.0-15.0)
[2018-03-02] MEDS ORDERED: IOPAMIDOL (ISOVUE 370) 100 ML BTL IV ONE (15:16)
[2018-03-02] MEDS ORDERED: NS 1,000 ML IV ONE (16:00)
--- NOTE | 2018-03-02 16:03 | CPEKG ---
Test Reason : OPEN Blood Pressure : / mmHG Vent. Rate : 101 BPM Atrial Rate : 101 BPM P-R Int : 157 ms QRS Dur : 124 ms QT Int : 356 ms P-R-T Axes : 076 -33 007 degrees QTc Int : 462 ms Sinus tachycardia Right bundle branch block Inferior infarct, old Confirmed by Ivis Henderson ([id number]) on 03/02/2018 4:02:18 PM Referred By: Confirmed By:Ivis Henderson
[2018-03-02 17:15] VITALS: BP 145/88
[2018-03-02] MEDS ORDERED: MAGNESIUM CITRATE 300 ML BOTTLE PO ONE (17:27)
== END 2018-03-02 17:35 | disposition home or self-care (01) ==
DX: R42 Dizziness and giddiness (principal); I25.10 Atherosclerotic heart disease of native coronary artery without angina pectoris; I48.91 Unspecified atrial fibrillation; E03.9 Hypothyroidism, unspecified; I10 Essential (primary) hypertension; K21.9 Gastro-esophageal reflux disease without esophagitis; G47.33 Obstructive sleep apnea (adult) (pediatric); Z95.1 Presence of aortocoronary bypass graft; Z95.5 Presence of coronary angioplasty implant and graft
CPT/HCPCS: 70450; 71046; 71275; 93005; 96360; 99285; Q9967; 84484-PO; G0480

== ENCOUNTER → 2018-03-13 | Outpatient (CLI) | payer OTHER, MEDICARE | LOC: BHFA 13:00 | PROVIDERS: ATTEND Internal Medicine Cardiovascular Disease | DX: I49.3 Ventricular premature depolarization (principal); I48.0 Paroxysmal atrial fibrillation ==

== ENCOUNTER → 2018-05-08 | Outpatient (CLI) | payer OTHER, MEDICARE | LOC: BHLMT 16:15 | PROVIDERS: ATTEND Internal Medicine Cardiovascular Disease | DX: I25.10 Atherosclerotic heart disease of native coronary artery without angina pectoris (principal); I38 Endocarditis, valve unspecified | CPT/HCPCS: 93306-PO ==

== ENCOUNTER 2018-06-12 01:17 | Observation (INO) | payer OTHER, MEDICARE ==
--- NOTE | 2018-06-12 02:08 | EDPHY ---
H & P Stated Complaint: left arm pain after cath procedure on 06/08/18 Time Seen by Provider: 06/12/18 01:47 HPI/ROS: Chief Complaint: Arm pain, upper back pain HPI: 67-year-old male with a history of coronary artery disease. Patient had a STEMI 4 days ago, was treated at [facility] and had clot removed from an existing stent. Patient was discharged on Sunday. Patient has catheterization performed through his left radial artery. Since that time he has had worsening left arm pain from his wrist up to his shoulder. He has been also having worsening pain between his shoulder blades which feels like his prior acute coronary syndrome pain. Both his arm and shoulder blade pain is a 7 /10. Is a dull and aching. No shortness of breath. He did see his director of broadcast yesterday however the pain became significantly worse this evening. He took some oral pain medications without any relief. No nausea or vomiting. No shortness of breath. No fevers or chills. No cough. No arm swelling but diffuse discomfort. ROS: 10 systems were reviewed and were negative except those elements noted in the HPI. PMH: Coronary artery disease status post CABG, recent STEMI Social History: No smoking, no alcohol, no recreational drug use Family History: non-contributory Physical Exam: Gen: Awake, Alert, No Distress HEENT: Nose: no rhinorrhea Eyes: PERRLA, EOMI Mouth: Moist mucosa Neck: Supple, no JVD Chest: nontender, lungs clear to auscultation Heart: S1, S2 normal, no murmur Abd: Soft, non-tender, no guarding Back: no CVA tenderness, no midline tenderness Ext: no edema, non-tender, left arm is ecchymotic, is not swollen. He has 2+ radials and ulnar pulses. Capillary refills less than 2 sec. Sensation is intact in the radial, median, and ulnar nerve distribution. Skin: no rash Neuro: CN II-XII intact, Sensation grossly intact, Strength 5/5 in bilateral upper and lower extremities - Personal History Current Tetanus Diphtheria and Acellular Pertussis (TDAP): Yes - Medical/Surgical History Hx Asthma: Yes Hx Chronic Respiratory Disease: Yes Hx Diabetes: No Hx Cardiac Disease: Yes Hx Renal Disease: No Hx Cirrhosis: No Hx Alcoholism: No Hx HIV/AIDS: No Hx Splenectomy or Spleen Trauma: No Other PMH: bypass 01/29/18, HTN, hypothyroidism, hypoadrenalism, A-Fib, celiac, low testosterone, CAD with stents x5 , sjrogrens syndrome, hiatal hernia, GERD, asthma, appy,, pernicious anemia - Social History Smoking Status: Never smoked Constitutional: Initial Vital Signs Temperature (C) 37.3 C 06/12/18 01:24 Heart Rate 95 06/12/18 01:24 Respiratory Rate 20 06/12/18 01:24 Blood Pressure 173/105 H 06/12/18 01:24 O2 Sat (%) 92 06/12/18 01:24 O2 Delivery Mode Room Air Allergies/Adverse Reactions: ANIBAL Inhibitors Allergy (Unknown, Verified 06/12/18 01:24) Other-Enter Comments Beta-Blockers (Beta-Adrenergic Bloc Allergy (Unknown, Verified 06/12/18 01:24) Other-Enter Comments Calcium Channel Blocking Agents-Dih Allergy (Unknown, Verified 06/12/18 01:24) Other-Enter Comments NSAIDS (Non-Steroidal Anti-Inflamma Allergy (Unknown, Verified 06/12/18 01:24) Other-Enter Comments Proton Pump Inhibitors Allergy (Unknown, Verified 06/12/18 01:24) Other-Enter Comments Yvzfdaa-Fbq-Hzf Reductase Inhibitor Allergy (Unknown, Verified 06/12/18 01:24) Other-Enter Comments Tricyclic Compounds Allergy (Unknown, Verified 06/12/18 01:24) Other-Enter Comments warfarin [From Coumadin] Allergy (Unknown, Verified 06/12/18 01:24) Other-Enter Comments SSRIs Allergy (Unknown, Uncoded 06/12/18 01:24) Other-Enter Comments Home Medications: Medication Instructions Recorded Arimidex 03/02/18 Aspirin 81mg (*) 03/02/18 Naltrexone 03/02/18 Prednisone 03/02/18 Medical Decision Making - Diagnostics EKG Interpretation: ECG time 1:37 a.m., sinus rhythm with a rate of 92, right bundle branch block and an old inferior infarct, no acute ST or T-wave changes. Imaging Results: Left options occur extremity Doppler ultrasound shows no deep vein thrombosis to left upper extremity. There is additional imaging of the radial artery performed. There is thrombus within the radial artery and atretic flow from the wrist to the elbow. Patient prominent collateral flow seen at the wrist. Radial veins are not enlarged and no arterial was a lock of the radial waveform to support fistula. Study interpreted by Dr. Vigil, direct Radiology ED Course/Re-evaluation: 67-year-old male with a recent STEMI presenting with pain between his shoulder blades similar to his prior ACS and arm pain. No acute ischemic changes on his ECG. Troponin is 0.38 however I think this is secondary to his recent STEMI. Abnormal ultrasound of the arm noted. Patient has been admitted to the hospitalist for further evaluation. - Data Points Laboratory Results: Laboratory Results 06/12/18 01:50 06/12/18 01:50 06/12/18 06/12/18 06/12/18 01:54 01:50 01:50 WBC 7.62 10^3/uL 10^3/uL (3.80-9.50) RBC 5.43 10^6/uL 10^6/uL (4.40-6.38) Hgb 15.8 g/dL g/dL (13.7-17.5) Hct 47.6 % % (40.0-51.0) MCV 87.7 fL fL (81.5-99.8) MCH 29.1 pg pg (27.9-34.1) MCHC 33.2 g/dL g/dL (32.4-36.7) RDW 13.6 % % (11.5-15.2) Plt Count 231 10^3/uL 10^3/uL (150-400) MPV 8.2 fL L fL (8.7-11.7) Neut % (Auto) 63.5 % % (39.3-74.2) Lymph % (Auto) 23.2 % % (15.0-45.0) Summers % (Auto) 11.9 % % (4.5-13.0) Eos % (Auto) 0.0 % L % (0.6-7.6) Baso % (Auto) 0.9 % % (0.3-1.7) Nucleat RBC Rel Count 0.0 % % (0.0-0.2) Absolute Neuts (auto) 4.83 10^3/uL 10^3/uL (1.70-6.50) Absolute Lymphs (auto) 1.77 10^3/uL 10^3/uL (1.00-3.00) Absolute Monos (auto) 0.91 10^3/uL H 10^3/uL (0.30-0.80) Absolute Eos (auto) 0.00 10^3/uL L 10^3/uL (0.03-0.40) Absolute Basos (auto) 0.07 10^3/uL 10^3/uL (0.02-0.10) Absolute Nucleated RBC 0.00 10^3/uL 10^3/uL (0-0.01) Immature Gran % 0.5 % % (0.0-1.1) Immature Gran # 0.04 10^3/uL 10^3/uL (0.00-0.10) Sodium 137 mEq/L mEq/L (135-145) Potassium 4.3 mEq/L mEq/L (3.5-5.2) Chloride 106 mEq/L mEq/L (97-110) Carbon Dioxide 21 mEq/l L mEq/l (22-31) Anion Gap 10 mEq/L mEq/L (6-14) BUN 18 mg/dL mg/dL (7-23) Creatinine 0.8 mg/dL mg/dL (0.7-1.3) Estimated GFR > 60 Glucose 101 mg/dL H mg/dL (70-100) Calcium 9.4 mg/dL mg/dL (8.5-10.4) POC Troponin I 0.38 ng/mL H ng/mL (0.00-0.08) Medications Given: Discontinued Medications Morphine Sulfate (Morphine) 4 mg IVP ONCE ONE Stop: 06/12/18 02:20 Last Admin: 06/12/18 02:28 Dose: 4 mg Point of Care Test Results: Chemistry 06/12/18 01:54 POC Troponin I 0.38 ng/mL H ng/mL (0.00-0.08) Departure - Departure Disposition: [facility] Inpatient Acute Clinical Impression: Chest pain, Arm pain Condition: Fair
[2018-06-12 02:19] LABS: PLATELET COUNT 231 10^3/uL (150-400)
[2018-06-12] MEDS ORDERED: ONDANSETRON 4 MG/2 ML VIAL IVP PRN (04:38)
[2018-06-12] MEDS ORDERED: ONDANSETRON DISINTEGRATING 4 MG TAB PO PRN (04:38)
[2018-06-12] MEDS ORDERED: NITROGLYCERIN 0.4 MG BTL SL PRN ×2 (04:41→11:23)
[2018-06-12] MEDS ORDERED: NS 1,000 ML IV SCH (04:45)
[2018-06-12] MEDS ORDERED: HEPARIN/DEXTROSE 500 ML IV ONE (05:25)
[2018-06-12] MEDS ORDERED: HEPARIN 10,000 UNIT/10 ML MDV (1,000 UNIT/ML) IVP ONE (05:25)
[2018-06-12] MEDS ORDERED: HEPARIN 10,000 UNIT/10 ML MDV (1,000 UNIT/ML) ONE (05:25)
[2018-06-12] MEDS ORDERED: HEPARIN/DEXTROSE 25,000 UNIT/500 ML BAG ONE (05:25)
[2018-06-12] MEDS ORDERED: HEPARIN 10,000 UNIT/10 ML MDV (1,000 UNIT/ML) IVP PRN (05:27)
[2018-06-12] MEDS ORDERED: HEPARIN/DEXTROSE 500 ML IV SCH (05:30)
[2018-06-12 06:13] LABS: INR 0.98 (0.83-1.16); PROTIME(PATIENT) 13.2 SEC (12.0-15.0)
[2018-06-12] MEDS ORDERED: HYDROCODONE/APAP 5/325 TAB ONE (06:36)
[2018-06-12] MEDS ORDERED: HYDROCODONE/APAP 5/325 TAB PO ONE (06:36)
--- NOTE | 2018-06-12 08:04 | GHP ---
[f rep st] HISTORY AND PHYSICAL DATE OF ADMISSION: 06/12/2018 SOURCE: Patient provides history, appears reliable. EMR was reviewed and case discussed with the ED provider. CHIEF COMPLAINT: Chest pain and shoulder blade pain and left arm pain. HISTORY OF PRESENT ILLNESS: This is a pleasant 67-year-old gentleman known to our service from previ ous admissions with past medical history significant for coronary artery disease, history of [place] in 09 09, status post PCI on multiple occasions, most recently on 02/09/2018, he underwent a CABG, history of paroxysmal atrial fibrillation status post ablation, MARGUERITE on CPAP, HTN, hyperlipidemia, Sjogren's, Lyme, polymyalgia rheumatica, GERD, who presents to the emergency department today with complaints of ongoing stuttering chest pain radiating to his shoulder blades. The patient reports that he was rec ently admitted to [facility] with a STEMI. On 06/08/2018, he underwent a cardiac cath. He reports a thrombus was noted, and his troponin plateaued to just above 3. He reports that since that time, he has continued to have stuttering intermittent pain with similar radiating pain to his shoulders. He also reports at his left wrist, he has increased pain near the site of the catheteriza tion. He denies any cold or painful digits. He notes that his fingers are warm. He denies any asso ciated shortness of breath. No cough. No fevers, chills. No diaphoresis. Given his significant ca rdiac history, patient opted to be evaluated in the emergency department here at [facility] where his primar y cardiologists are located. He is followed closely by Dr. Gardiner. REVIEW OF SYSTEMS: Ten systems reviewed, negative except as noted above. ALLERGIES: ANIBAL inhibitor, beta yana, calcium channel yana, NSAIDs, PPI, statins, tricyclics, w arfarin, SSRIs. HOME MEDICATIONS: Medication list not yet updated by pharmacy. Please see EMR. PAST MEDICAL HISTORY: Significant for CAD with recent STEMI on 06/08/2018, history of CABG 8, multiple stents on multiple caths since 2004, hypothyroidism, chronic steroid treatment for adrena l insufficiency, MARGUERITE CPAP, AFib paroxysmal status post ablation, celiac, low T, Sjogren's, hiatal her pj, GERD, asthma, anemia, Lyme disease, polymyalgia rheumatica, history of UTI, pyelo remotely. PAST SURGICAL HISTORY: Significant for appendectomy, CABG, cardiac cath on multiple occasions, lapar oscopic [place] fundoplication, eye surgery x4 including cataracts and vitrectomy. PAST FAMILY HISTORY: CAD, CABG, CHF, HLD, HTN, CVA. SOCIAL HISTORY: Patient is . He lives in [place]. He does not smoke, drink, or use illicit drugs. CODE STATUS: Full. PHYSICAL EXAMINATION: VITAL SIGNS: Initial on arrival, blood pressure is 173/105, pulse 95, respira tory rate 20, O2 of 92 room air, 37.3. Vitals currently available: Blood pressure 146/79, heart rat e is 82, respiratory rate 18, O2 saturation 93% on room air. Patient is afebrile at 37.3. GENERAL: No acute distress, pleasant, overweight adult gentleman is sitting up in bed, alert. HEAD: Normoce phalic, atraumatic. EYES: Extraocular muscles grossly intact. Pupils equal, round with decreased r eactivity to light bilaterally, but symmetric. Lens reflex appreciated bilaterally. No scleral icte nate or conjunctival injection. ENT: Mucous membranes appear moist. No oropharyngeal erythema or ex udates. No nasal discharge. NECK: Supple. Trachea midline. CV: Regular rate and rhythm. No mur murs, rubs, or gallops appreciated. RESPIRATORY: Lungs clear to auscultation bilaterally, slightly diminished at the bases but otherwise clear. No respiratory distress. ABDOMEN: Obese, soft, nonten ilene to palpation. No rebound, guarding, or masses appreciated. The patient does have some bruising in various stages of healing on the right chest and the left lateral chest wall. Positive bowel soun ds. : No suprapubic tenderness to palpation. No Leong catheter in place. EXTREMITIES: Patient with complaint of pain over the right anterior distal arm. His cath site appears dry, clean, and int act. There is a minimal amount of surrounding bruising. The patient has a slightly diminished radia l pulse, but excellent ulnar pulse. Less than 2 second cap refill, and digits are all warm. There i s no lower extremity edema. 2+ pedal pulses. PSYCH: Thought process, content, and questions approp riate. Patient is pleasant and cooperative. LABORATORY STUDIES: WBC 7.62, H and H are 15.8 and 47.6, platelet count is 231, MCV of 87.7. No ban ds. PT is 13.2, INR 0.98, PTT is 26.3. Sodium 137, potassium 4.3, chloride is 106, CO2 is 21, BUN 18, anion gap 10, creatinine 0.8, GFR grea ter than 60, glucose is 101, calcium is 9.4. Initial troponin is 0.38, repeated this morning is 0.49 3. UA specific gravity of 1.018 with a pH of 5.0. Clear, otherwise negative. EKG reviewed myself, shows normal sinus rhythm, PVCs, right bundle branch block which is stable, and Q-waves in the inferior leads, which is also persistent. QTc is 422. No acute ST changes. Chest x-ray image reviewed by myself, report is still pending. Clear. Sternotomy wire and hardware in place. Left upper extremity duplex negative for DVT showing thrombus within the radial artery with prominent collateral flow, however. The radial veins are not enlarged and no arterialization radial waveform to support a fistula. ASSESSMENT AND PLAN: Pleasant 67-year-old gentleman with a longstanding cardiac history who presents to the emergency department with intermittent chest and shoulder blade pain as well as left distal a rm pain. 1. Chest pain and shoulder blade pain similar to patient's previous complaints of myocardial infarct ions and cardiac pain. We will plan to trend cardiac enzymes. Given patient's finding of a radial a rtery thrombus as well as the elevated troponin and patient's symptoms, discussed the case with Dr. Janie García who agrees with initiating heparin therapy at this time until further evaluation of his card iac status can be appreciated. It is uncertain at this point whether benefits of additional interven tions on the left radial artery thrombus are greater than the risks. 2. Left radial artery thrombus, status post cardiac catheterization on 06/08/2018. Continue heparin drip, cardiac dosing as noted above. Additional plan to be discussed with day team and cardiology t mack. 3. Chronic medical issues. a. Coronary artery disease. Patient took his full dose of Plavix. He is on aspirin. Resume additi onal home medications when medication reconciliation is available. b. Paroxysmal atrial fibrillation, currently in normal sinus rhythm. Patient is not a candidate for beta blockers due to adverse reaction. c. Polymyalgia rheumatica on steroids. Resume once medication reconciliation available. d. Asthma. Nebulizer p.r.n. e. Obstructive sleep apnea on CPAP. Continue. f. Anemia with currently normal hemoglobin and hematocrit. g. History of celiac. Dietary restrictions. h. Decreased testosterone on supplementation. i. Gastroesophageal reflux disease, hiatal hernia, hyperlipidemia, Sjogren's, Lyme disease, benign e ssential hypertension. Plan to resume his home medications once diet advanced. 4. Fluid, electrolyte, nutrition. Patient will be n.p.o. pending Cardiology evaluation and discussi on with day hospitalist regarding consideration of plan whether intervention will be required. 5. Prophylaxis. Sequential compression devices on heparin drip. 6. Code status full. DISPOSITION: Patient admitted to observation status at this time pending cardiac evaluation and vincent ziegler plan regarding patient's radial thrombus, but again, he has excellent pulses and evidence of perfus ion. /[id number]/MODL
[2018-06-12] MEDS: HYDROCODONE/APAP 10/325 TAB PO PRN ×2 (09:52→22:24)
--- NOTE | 2018-06-12 10:31 | ASMTCMCOM ---
CM Note CM Note Notes: Pt is a 67 y/o man admitted for chest pain, shoulder blade pain and left arm pain. Pt will most likely d/c independent when medically stable. No therapies ordered at this time. CM available for changes. Plan: Independent Date Signed: 06/12/2018 10:31 AM Electronically Signed By:BRAYDEN Garcia
[2018-06-12] MEDS ORDERED: TEARS/DEXTRAN 70/HYPROMELLOSE 15 ML OPHT.BTL EACHEYE PRN (11:23)
[2018-06-12] MEDS ORDERED: LIOTHYRONINE SODIUM 5 MCG TAB PO SCH (11:30)
[2018-06-12] MEDS: CLOPIDOGREL BISULFATE 75 MG TAB PO SCH (12:19)
[2018-06-12] MEDS: CHOLECALCIFEROL VIT D3 1,000 UNITS TAB PO SCH (12:19)
[2018-06-12] MEDS: ASCORBIC ACID 500 MG TAB PO SCH (12:20)
[2018-06-12] MEDS: ASPIRIN 81 MG CHEWABLE TAB PO SCH (12:20)
[2018-06-12] MEDS: methylPREDNISolone 4 MG TAB PO SCH (12:20)
[2018-06-12] MEDS: VITAMIN B COMPLEX 1 EA CAP/TAB PO SCH (12:20)
[2018-06-12] MEDS: Naltrexone 4.5mg 4.5 MG PO SCH (12:22)
--- NOTE | 2018-06-12 14:01 | HOSPPROG ---
Hospitalist Progress Note Assessment/Plan: DIAGNOSES: * Acute interscapular chest pain, possibly musculoskeletal though does have recent acute coronary event troponin still trending down * Acute arterial thromboembolism left arm * Recent acute coronary syndrome treated with intervention at [facility] * Coronary disease with bypass surgery here in January * Uncontrolled hypertension, could potentially be due to not getting medicines on usual schedule overnight * History of AFib currently in sinus rhythm * History of asthma currently stable * Polymyalgia rheumatica on steroid * MARGUERITE on chronic CPAP * History of celiac disease, Sjogren syndrome, pyelonephritis PLANS: * Will start some Robaxin and Lidoderm patch for his interscapular pain to see if this helps; recommend considering resuming physical/massage therapy for that in outpatient setting * I reviewed with Dr. Johnson in detail at length today. Due to his thrombus in the forearm which is a long segment and more proximal than usual concern for possible brachial artery dissection, and due to the fact that patient did not get heparin with his procedure in [place] concern for possible persisting thrombus or other ongoing trouble in right coronary. He is going to recommend to the patient angiography with a look both at the right cornea and the left arm brachial artery. Await results of their discussion and plans * Continue current medicines for hypertension, AFib, asthma, polymyalgia * Continue his CPAP here Reviewed by me in detail with Dr. Johnson today Greater than 40 min in bedside in care coordination time by me today in addition to the time spent earlier by Dr. Hardin on admission activities Patient will require continued monitoring here in the hospital with ongoing diagnostic assessments and potential changes in treatment, will need to change to inpatient status SUBJECTIVE: Still has interscapular pain. As I review this with him this is very similar to interscapular pain he had starting after his bypass surgery. After the surgery he did work with a massage therapist and physical therapist and found them very helpful. He states that this pain is aggravated by movements of his trunk or shoulders. Denies shortness of breath, nausea, fever symptoms Denies pain in his sternal surgical site from January Denies pain in his left hand at this time OBJECTIVE Vitals reviewed: Blood pressures were high overnight per coming down now after starting back on his usual medicines, otherwise stable vitals without fever Ladle Puller, my review: Sinus Exam: alert oriented skin warm dry color ok resps not labored lungs clear BSs heart regular abd soft nondistended nontender, bowel sounds present limbs left him warm with good color, no tenderness, legs without edema and are warm with good color iv site ok 3 EKGs have been done so far I have reviewed all of the tracings; they show a sinus rhythm with right bundle branch block nothing that appears ischemic Lab data: Troponin slightly lower this morning on repeat assessment Imaging: I reviewed chest x-ray image from the ER, there is no evidence of congestive heart failure Objective: Vital Signs Temp Pulse Resp BP Pulse Ox 36.6 C 86 18 128/89 H 95 06/12/18 11:40 06/12/18 11:40 06/12/18 11:40 06/12/18 11:40 06/12/18 11:40 PT 13.2 SEC (12.0-15.0) 06/12/18 05:40 INR 0.98 (0.83-1.16) 06/12/18 05:40 ICD10 Worksheet Patient Problems: Problems Problem Status Onset Arm pain Acute Chest pain Acute Acute blood loss anemia Acute Coronary stent restenosis Acute Mitral regurgitation Acute S/P CABG x 2 Acute ~01/29/18 S/P Maze operation for atrial fibrillation Acute ~01/29/18 S/P mitral valve repair Acute ~01/29/18 CAD in [place] artery Chronic MARGUERITE (obstructive sleep apnea) Chronic PAF (paroxysmal atrial fibrillation) Chronic
[2018-06-12] MEDS: LIDOCAINE 4%/MENTHOL 1% PATCH TD SCH (14:43)
[2018-06-12] MEDS: METHOCARBAMOL 500 MG TAB PO SCH ×3 (14:43→22:24)
--- NOTE | 2018-06-12 14:43 | PDPROPOC ---
Sedation Plan of Care Sedation Plan of Care: vital signs stable, mental status noted, patient educated of risks, benefits, alternatives, patient can tolerate sedation ASA Classification: ASA 3 Planned drugs: fentanyl, midazolam Mallampati Score: Class 2 Mallampati Reference Image: Patient passed 3-3-2 rule?: No
--- NOTE | 2018-06-12 14:46 | PDHPUP ---
History & Physical Update H&P update statement: This history and physical update is based on an assessment of the patient which was completed after admission or registration (within 24 hours), but prior to the surgery/procedure. H&P update: H&P reviewed & patient examined, changes noted H&P changes: Troponin is trending down; however, the patient has a radial artery thrombosis and it appears received Integrelin without concomitant Heparin. I think it is in the best interest of the patient to r/o thrombus of the RCA since he has symptoms that could be CCS Class IV
[2018-06-12] MEDS ORDERED: LIDOCAINE 1% 300 MG/30 ML SDV ONE (14:47)
[2018-06-12] MEDS ORDERED: fentaNYL 100 MCG/2 ML INJ ONE (14:47)
[2018-06-12] MEDS ORDERED: MIDAZOLAM 2 MG/2 ML VIAL ONE (14:48)
[2018-06-12] MEDS ORDERED: IOPAMIDOL (ISOVUE-370) 150 ML BTL IV ONE (14:48)
[2018-06-12] MEDS ORDERED: FAMOTIDINE 20 MG TAB PO ONE (14:57)
[2018-06-12] MEDS ORDERED: ASPIRIN EC 325 MG TAB PO ONE ×2 (14:57→14:58)
[2018-06-12] MEDS ORDERED: diphenhydrAMINE 25 MG CAP PO ONE ×2 (14:57→14:58)
[2018-06-12] MEDS ORDERED: NS 1,000 ML IV ONE (14:57)
[2018-06-12] MEDS ORDERED: FAMOTIDINE 20 MG TAB ONE (14:58)
--- NOTE | 2018-06-12 15:01 | CPEKG ---
Test Reason : OPEN Blood Pressure : / mmHG Vent. Rate : 092 BPM Atrial Rate : 093 BPM P-R Int : 154 ms QRS Dur : 124 ms QT Int : 366 ms P-R-T Axes : 078 -34 001 degrees QTc Int : 453 ms Sinus rhythm with bundle-switching to RBBB Inferior infarct, old PVCs Confirmed by Randal Yanez ([id number]) on 06/12/2018 3:01:16 PM Referred By: Anel Hardin Confirmed By:Randal Yanez
--- NOTE | 2018-06-12 15:02 | CPEKG ---
Test Reason : OPEN Blood Pressure : / mmHG Vent. Rate : 091 BPM Atrial Rate : 000 BPM P-R Int : 160 ms QRS Dur : 124 ms QT Int : 368 ms P-R-T Axes : 086 -40 002 degrees QTc Int : 453 ms NSR Right bundle branch block Inferior infarct, old Confirmed by Randal Yanez ([id number]) on 06/12/2018 3:02:16 PM Referred By: Anel Hardin Confirmed By:Randal Yanez
[2018-06-12] MEDS ORDERED: BIVALIRUDIN 250 MG/5 ML VIAL IV ONE (15:49)
--- NOTE | 2018-06-12 15:52 | PDDXCAT ---
Diagnostic Cath Note - . 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 There is evidence of previous stenting with multpile overlapping from the proximal segment to the proximal portion of the distal segment of the vessel without evidence of filling defect or thrombus. - Findings-Right Heart Catheterization AO: 153/81/104 Complications: NONE Estimated blood loss: <50ml Closure method: Angioseal Assessment: The patient has [place] vessel coronary disease with evidence of prior CABG with grafts from the SVG to the OM and REECE to the LAD. The patient' s right coronary artery is dominant and does not show evidence of plaque related obstruction in stent or insegment restenosis of significance or thrombus. The patient's left radial artery is thrombosed and 100% occluded approximatley 20mm distal to the brachial artery takeoff. There is no evidence of dissection of the brachial artery. Plan: I will discuss with the patient the benefit of starting anticoagulation therapy with the use of Lovenox to try to recannulate the radial artery with medical management. I discussed the case with Dr. Richey of interventional radiology and the downside of opening the vessel would be distal embolization and risk of tissue loss including finger or hand necrosis. I think there is benefit to try and reduce the thrombus burden in his radial artery and help recanalization. the patient should remain on dual antiplatelet therapy indefinitely or alternatively could be considered for the recently approved low dose Xarelto 2.5 mg BID as an alternative. Intervention: NONE Patient Problems: Problems Problem Status Onset Arm pain Acute Chest pain Acute Acute blood loss anemia Acute Coronary stent restenosis Acute Mitral regurgitation Acute S/P CABG x 2 Acute ~01/29/18 S/P Maze operation for atrial fibrillation Acute ~01/29/18 S/P mitral valve repair Acute ~01/29/18 CAD in [place] artery Chronic MARGUERITE (obstructive sleep apnea) Chronic PAF (paroxysmal atrial fibrillation) Chronic
[2018-06-12] MEDS ORDERED: ATROPINE SULFATE 1 MG/10 ML SYR IVP PRN (16:39)
[2018-06-12] MEDS ORDERED: OXYCODONE/APAP 5/325 TAB PO PRN (16:39)
[2018-06-12] MEDS: ENOXAPARIN 100 MG/ML SYR SC SCH (18:06)
[2018-06-12] MEDS: TESTOSTERONE 1% 5 GM GEL PKT TD SCH (18:23)
[2018-06-12] MEDS ORDERED: PATCH REMOVAL 1 EA PATCH TD SCH (21:00)
[2018-06-13] MEDS: METHOCARBAMOL 500 MG TAB PO SCH ×3 (05:36→17:34)
[2018-06-13] MEDS: ENOXAPARIN 100 MG/ML SYR SC SCH ×2 (05:37→17:33)
[2018-06-13] MEDS: ACETAMINOPHEN 325 MG TAB PO PRN ×2 (05:44→13:20)
[2018-06-13] MEDS: CHOLECALCIFEROL VIT D3 1,000 UNITS TAB PO SCH (08:57)
[2018-06-13] MEDS: VITAMIN B COMPLEX 1 EA CAP/TAB PO SCH (08:57)
[2018-06-13] MEDS: CLOPIDOGREL BISULFATE 75 MG TAB PO SCH (08:57)
[2018-06-13] MEDS: TESTOSTERONE 1% 5 GM GEL PKT TD SCH (08:57)
[2018-06-13] MEDS: ASPIRIN 81 MG CHEWABLE TAB PO SCH (08:57)
[2018-06-13] MEDS: ASCORBIC ACID 500 MG TAB PO SCH (08:57)
[2018-06-13] MEDS: methylPREDNISolone 4 MG TAB PO SCH (08:57)
[2018-06-13] MEDS: LIDOCAINE 4%/MENTHOL 1% PATCH TD SCH (08:58)
[2018-06-13] MEDS: Naltrexone 4.5mg 4.5 MG PO SCH (09:16)
[2018-06-13 12:36] VITALS: BP 145/81
--- NOTE | 2018-06-13 16:10 | ASMTLACE ---
LACE Length of stay for Answers: 1 day current admission Acuity / Level of Answers: No Care: Did the patient have an inpatient admission? Comorbidities - select Answers: Coronary Artery Disease all that apply Previous myocardial infarction Other Notes: HTN; HLD; AFib # of Emergency department Answers: 3-4 visits in the last 6 months Score: 8 Date Signed: 06/13/2018 04:09 PM Electronically Signed By:BRAYDEN Garcia
--- NOTE | 2018-06-13 16:12 | ASMTCMCOM ---
CM Note CM Note Notes: Pts case discussed in tx rounds. Pt is being d/c'd without any needs. CM provided pt w/ a list of internalist within the [facility] network. Pt will do his own research and make his own appointment. CM available for changes. Plan: Independent Date Signed: 06/13/2018 04:11 PM Electronically Signed By:BRAYDEN Garcia
--- NOTE | 2018-06-13 18:24 | PDDCSUM ---
Discharge Summary Discharge Summary: Discharge diagnosis Left radial artery occlusion Coronary artery disease with recent STEMI on June 08 Adrenal insufficiency on steroids Paroxysmal AFib Celiac sprue Low testosterone Sjogren's syndrome GERD Asthma Chronic anemia Polymyalgia rheumatica Patient was admitted with chest pain and shoulder blade pain and left arm pain a few days after undergoing a cardiac catheterization for a STEMI at [facility]. He underwent left heart catheterization. An ultrasound of his left arm showed no venous clot but did show an arterial clot of his radial artery from the forearm to the wrist. Cardiology was consulted given his chest pain and he ultimately was taken for a left and right heart catheterization. Findings of the left heart catheterization showed that the right coronary arteries 3 mm in size and dominant. There was evidence of previous stenting with multiple overlapping from the proximal segment of the proximal portion of the distal segment of the vessel without evidence of filling defect or thrombus. The results of the right heart catheterization showed that the patient has needed vessel coronary artery disease with evidence of prior CABG with grafts from the saphenous vein graft to the OM and REECE to the LAD. The patient's right coronary artery is dominant and does not show evidence of plaque related obstruction in stent or in segment restenoses of significant prior thrombus. The patient's left radial artery is thrombosed and 100% occluded approximately 20 me to mm distal to the brachial artery takeoff. There was no dissection of the brachial artery. The case was discussed with interventional radiology who felt that there was a risk of dissection if intervention was undertaken. The decision was made to place the patient on Lovenox twice daily. He remained stable and was discharged home to complete 14 days of Lovenox with follow-up within that 14 days to reassess if the clot burden had been decreased by the Lovenox with an ultrasound. An appointment was made for him to follow up with Dr. Gardiner from Cardiology on June 26 along with an ultrasound of his left arm prior to that appointment. The decision would be made to continue the Lovenox at that appointment. Disposition Home independent New medications Lovenox 90 mg twice daily Latanya [email or web address] Follow-up Dr. Gardiner June 26 at 10:00 a.m. I spent over 30 min on the discharge of this patient
== END 2018-06-13 18:00 | disposition home or self-care (01) ==
LOC: F2W 08:10
PROVIDERS: ADMIT Family Medicine; ATTEND Internal Medicine
DX: I25.119 Atherosclerotic heart disease of native coronary artery with unspecified angina pectoris (principal); I82.722 Chronic embolism and thrombosis of deep veins of left upper extremity; I21.3 ST elevation (STEMI) myocardial infarction of unspecified site; I10 Essential (primary) hypertension; E27.40 Unspecified adrenocortical insufficiency; I48.0 Paroxysmal atrial fibrillation; K90.0 Celiac disease; Q87.1 Congenital malformation syndromes predominantly associated with short stature; J45.909 Unspecified asthma, uncomplicated; D64.9 Anemia, unspecified; M35.3 Polymyalgia rheumatica; Z95.5 Presence of coronary angioplasty implant and graft; Z95.1 Presence of aortocoronary bypass graft; Z79.52 Long term (current) use of systemic steroids
CPT/HCPCS: 71046; 75710; 93005; 93454; 93971; C1760; G0378; J1644; J1650; J2250; J2270; J3010; Q9967; 84484-ER; 85520-90; 96365; 96366; J0583

== ENCOUNTER 2018-06-13 21:18 | Emergency (ER) | payer OTHER, MEDICARE ==
[2018-06-13 21:38] VITALS: BP 189/98
--- NOTE | 2018-06-13 21:51 | EDPHY ---
H & P Stated Complaint: Hematoma at R groin cardiac cath site, d/c today Source: Patient, Old records Exam Limitations: No limitations - Personal History Current Tetanus Diphtheria and Acellular Pertussis (TDAP): Yes - Medical/Surgical History Hx Asthma: Yes Hx Chronic Respiratory Disease: Yes Hx Diabetes: No Hx Cardiac Disease: Yes Hx Renal Disease: No Hx Cirrhosis: No Hx Alcoholism: No Hx HIV/AIDS: No Hx Splenectomy or Spleen Trauma: No Other PMH: bypass 01/29/18, HTN, hypothyroidism, hypoadrenalism, A-Fib, celiac, low testosterone, CAD with stents x5 , sjrogrens syndrome, hiatal hernia, GERD, asthma, appy,, pernicious anemia - Social History Smoking Status: Never smoked Time Seen by Provider: 06/13/18 21:48 HPI/ROS: HPI: This is a 67-year-old male who presents with Chief Complaint: Hematoma at Right groin cardiac cath site, d/c today Location: Right groin Quality: Swelling and bulge Duration: 45 min prior to arrival Signs and Symptoms: No bleeding, no radiation, no numbness, no weakness, no tingling, no incontinence, no decreased range of motion, + swelling, no pain, no fever, + skin color changes Timing: Acute, improving Severity: Moderate Context: Patient has a complicated history asthma including coronary disease with recent STEMI and cardiac catheterization on June 08 in [facility]. He then developed chest pain and shoulder blade pain and left arm pain a few days after the cardiac catheterization. He was admitted to this hospital and underwent left and right heart catheterization. Ultrasound of his left arm showed no venous cough but did show an arterial clot of his radial artery from the forearm to the wrist. Findings of the left heart catheterization showed the right coronary arteries 3 mm in size and dominant. Results with right heart catheterization showed the patient has vessel coronary artery disease with evidence of prior CABG with grafts from saphenous vein graft to the OM and krause to the LAD. The patient's left radial arteries thrombosed and 100% occluded proximally 20 mm distal to the brachial artery takeoff. There is no dissection of the brachial artery. The case is discussed with interventional radiology felt that there is risk of dissection if intervention was undertaken. The decision was made to place the patient on Lovenox 90 mg twice daily. Patient reports that he was discharged around 4:20 p.m. From the hospital. Around 9:00 p.m. He remove the dressing and noted up popping of the Angio-Seal with resultant swelling in his right groin. He called the cardiac nurse after hours line and was advised to place pressure dressing on the area. He reports that the swelling has 75% improved with mild discoloration in the area. Modifying Factors: Direct pressure Comment: ROS: A comprehensive 10 system review of systems is otherwise negative aside from elements mentioned in the history of present illness. MEDICAL/SURGICAL/SOCIAL HISTORY: Medical/surgical history: bypass 01/29/18, HTN, hypothyroidism, hypoadrenalism, A-Fib, celiac, low testosterone, CAD with stents x5 , Sjogren syndrome, hiatal hernia, GERD, asthma, appendectomy, pernicious anemia Social history: . Never smoked. CONSTITUTIONAL: Overweight, anxious, elderly white male, at bedside, awake and alert, no obvious distress HEENT: Atraumatic and normocephalic. NECK: supple, no midline tenderness Cardiovascular: Normal S1/S2, regular rate, regular rhythm, without murmur rub or gallop. PULMONARY/CHEST: Symmetrical and nontender. no crepitus. Clear to auscultation bilaterally. Good air movement. No accessory muscle usage. ABDOMEN: Soft, nondistended, nontender, no ecchymosis. GROIN: Right inguinal area shows small puncture site from catheterization but no active bleeding or discharge. There is mild swelling in the right inguinal area with darkening/hyperpigmentation of the skin. No fluctuance appreciated. EXTREMITIES: 2/2 pulses, strength 5/5, DIP/PIP/MCP flexion/extension intact with good light touch sensation. no deformities, no clubbing, no cyanosis or edema. NEUROLOGICAL: no focal neuro deficits. GCS 15. Light touch sensation intact. SKIN: Warm and dry, no erythema. no rash. Good capillary refill. (Michelle Graf) Constitutional: Initial Vital Signs Temperature (C) 37.0 C 06/13/18 21:19 Heart Rate 109 H 06/13/18 21:19 Respiratory Rate 19 06/13/18 21:19 O2 Sat (%) 94 06/13/18 21:19 O2 Delivery Mode Room Air Allergies/Adverse Reactions: ANIBAL Inhibitors Allergy (Unknown, Verified 06/13/18 21:18) Other-Enter Comments Beta-Blockers (Beta-Adrenergic Bloc Allergy (Unknown, Verified 06/13/18 21:18) Other-Enter Comments Calcium Channel Blocking Agents-Dih Allergy (Unknown, Verified 06/13/18 21:18) Other-Enter Comments NSAIDS (Non-Steroidal Anti-Inflamma Allergy (Unknown, Verified 06/13/18 21:18) Other-Enter Comments Proton Pump Inhibitors Allergy (Unknown, Verified 06/13/18 21:18) Other-Enter Comments Djtfwtl-Cqk-Ldc Reductase Inhibitor Allergy (Unknown, Verified 06/13/18 21:18) Other-Enter Comments Tricyclic Compounds Allergy (Unknown, Verified 06/13/18 21:18) Other-Enter Comments warfarin [From Coumadin] Allergy (Unknown, Verified 06/13/18 21:18) Other-Enter Comments SSRIs Allergy (Unknown, Uncoded 06/13/18 21:18) Other-Enter Comments Home Medications: Medication Instructions Recorded Ascorbic Acid [Vitamin C 500 mg 500 mg PO DAILY 06/12/18 (*)] Aspirin [Aspirin 81mg (*)] 81 mg PO DAILY 06/12/18 Cholecalciferol Vit D3 [Vitamin D3 1,000 units PO DAILY 06/12/18 (*)] Clopidogrel Bisulfate [Plavix (*)] 75 mg PO DAILY 06/12/18 Herbals/Supplements -Info Only 1 ea PO DAILY 06/12/18 Liothyronine Sodium [Cytomel 5 mcg 2.5 mcg PO Q2D 06/12/18 (*)] Naltrexone 4.5mg 4.5 mg PO DAILY 06/12/18 Nitroglycerin [Nitrostat 0.4 mg 0.4 mg SL Q5M PRN 06/12/18 (*)] Ondansetron Odt [Zofran Odt 4 mg 4 mg PO Q4 PRN 06/12/18 (*)] Tears/Dextran 70/Hypromellose 1 drop EACHEYE Q2 PRN 06/12/18 [Natural Balance Tears (*)] Testosterone [Androgel] 2.5 gm TD DAILY 06/12/18 Vitamin B Complex [Vitamin B 1 each PO DAILY 06/12/18 Complex (OTC)] Vitamin B12 20,000mcg Inj 1 each IJ Q7D 06/12/18 methylPREDNISolone [Medrol 4mg (*)] 4 mg PO DAILY 06/12/18 Enoxaparin [Lovenox 100 MG (*)] 90 mg SC BID@0600,1800 14 Days #28 06/13/18 syr Hydrocodone/Acetaminophen [Shattuck 1 each PO TID PRN 5 Days #15 tablet 06/13/18 5-325 Tablet] Methocarbamol [Robaxin 500 mg (*)] 500 mg PO QID PRN 30 Days #30 tab 06/13/18 Medical Decision Making Procedures: Bedside right groin Ultrasound- performed and interpreted by me. Indication: Ecchymoses status post Angio-Seal removal Findings: Superficial tissue edema with cobblestoning present, femoral artery with good flow with no pseudoaneurysm visualized, compressible common femoral vein with normal flow Impression: Superficial tissue edema (Rina Quesada) ED Course/Re-evaluation: PHYSICIAN DOCUMENTATION: The patient was evaluated and managed by the Physician Agency Development Manager. My co- signature indicates that I have reviewed this chart and I agree with the findings and plan of care as documented. I am the secondary supervising physician. (Rina Quesada) Vital signs reviewed and mild tachycardia observed. Decision to consult with attending who will perform bedside ultrasound. Dr. Quesada performed bedside ultrasound that showed no aneurysm, no hematoma. Spoke with Dr. Syed, cardiology, who advised to apply 4 x 4 and pressure dressing. Suspect this is superficial tissue edema. This patient was seen under the supervision of my secondary supervising physician. I evaluated care for this patient with attending. Discussed this patient with Dr. Quesada who did see the patient. (Michelle Graf) Differential Diagnosis: Differential diagnosis includes but is not limited to hematoma, aneurysm, coagulopathy. (Michelle Graf) Departure - Departure Disposition: Home, Routine, Self-Care Clinical Impression: Edema of periwound skin, Groin fullness Traumatic ecchymosis of groin Qualifiers: Encounter type: initial encounter Qualified Code(s): S30.1XXA - Contusion of abdominal wall, initial encounter Condition: Good Instructions: Hematoma (ED), Ecchymosis (ED) Additional Instructions: Keep pressure dressing in place for 48-72 hours. After 48 hr, you may remove the pressure dressing but keep Tegaderm in place for another 48-72 hours. Keep Cardiology follow-up appointment on June 26. Continue to take Lovenox as directed. Return at once for any worsening symptoms or concerns. Referrals: LUCAS CROW [Primary Care Provider] - As per Instructions Jose Ramon Gardiner MD [Medical Doctor] - 06/26/18 10:00 am
== END 2018-06-13 23:02 | disposition home or self-care (01) ==
DX: S30.1XXA Contusion of abdominal wall, initial encounter (principal); R60.0 Localized edema; Z98.890 Other specified postprocedural states

== ENCOUNTER 2018-06-17 09:17 | Emergency (ER) | payer OTHER, MEDICARE ==
--- NOTE | 2018-06-17 09:43 | EDPHY ---
H & P Stated Complaint: bilat arm pain hospitalized recently with clots Time Seen by Provider: 06/17/18 09:38 HPI/ROS: 68-year-old male with a diagnosis of a left radial artery thrombus from the wrist to the forearm which developed following a cardiac catheterization. Patient has been on Lovenox 2 times a day since his discharge from the hospital on June 13. Since that time, the pain in his left arm has gradually increased. He endorses right arm pain as well now, of the same quality as in the left. The pain is worse at night when he is trying to sleep. His discomfort extends from his wrist up his volar forearm and then wraps around to the back of his upper arm. No pain or swelling in his legs. No fever, chills, chest pain , shortness of breath, palpitations, vomiting, diarrhea, urinary complaints, headache, lightheadedness. Patient notes he has history of Lyme's Disease 20 years ago with multiple persistent symptoms and diagnoses of several autoimmune disorders following, including pernicious anemia, Regi's, Sjogren's, and polymyalgia rheumatica. - Personal History Current Tetanus Diphtheria and Acellular Pertussis (TDAP): Yes - Medical/Surgical History Hx Asthma: Yes Hx Chronic Respiratory Disease: Yes Hx Diabetes: No Hx Cardiac Disease: Yes Hx Renal Disease: No Hx Cirrhosis: No Hx Alcoholism: No Hx HIV/AIDS: No Hx Splenectomy or Spleen Trauma: No Other PMH: bypass 01/29/18, HTN, hypothyroidism, hypoadrenalism, A-Fib, celiac, low testosterone, CAD with stents x5 , sjrogrens syndrome, hiatal hernia, GERD, asthma, appy,, pernicious anemia - Social History Smoking Status: Never smoked - Physical Exam Exam: VITAL SIGNS: Reviewed by me GENERAL: Well-developed, well-nourished, resting comfortably in no respiratory distress. HEENT: Atraumatic. Eyes: No icterus, no injection. Mouth: moist mucous membranes. No erythema or lesions. Neck: supple with no adenopathy. LUNGS: Clear to auscultation bilaterally, no wheezes, rhonchi or rales. CARDIAC: Regular rate and rhythm, no rubs, murmurs or gallops. ABDOMEN: Soft, nontender, nondistended, bowel sounds normal. BACK: No CVA tenderness. EXTREMITIES: Mild tenderness over muscles of arms. Brisk capillary refill, normal radial and ulnar pulses bilaterally. No visible swelling, no trauma, compartments are not tense. No edema. Range of motion is normal throughout. NEURO: Alert and oriented, grossly nonfocal. SKIN: Scattered ecchymosis and scabbed venipuncture sites across arms. Lovenox injection sites with surrounding ecchymoses across abdomen. Warm and dry, no rash. PSYCHIATRIC: Normal mentation, no agitation. Constitutional: Initial Vital Signs Temperature (C) 36.8 C 06/17/18 09:20 Heart Rate 103 H 06/17/18 09:20 Respiratory Rate 18 06/17/18 09:20 Blood Pressure 148/92 H 06/17/18 09:20 O2 Sat (%) 93 06/17/18 09:20 O2 Delivery Mode Room Air Allergies/Adverse Reactions: ANIBAL Inhibitors Allergy (Unknown, Verified 06/17/18 09:19) Other-Enter Comments Beta-Blockers (Beta-Adrenergic Bloc Allergy (Unknown, Verified 06/17/18 09:19) Other-Enter Comments Calcium Channel Blocking Agents-Dih Allergy (Unknown, Verified 06/17/18 09:19) Other-Enter Comments NSAIDS (Non-Steroidal Anti-Inflamma Allergy (Unknown, Verified 06/17/18 09:19) Other-Enter Comments Proton Pump Inhibitors Allergy (Unknown, Verified 06/17/18 09:19) Other-Enter Comments Uxtnasb-Ozd-Jvn Reductase Inhibitor Allergy (Unknown, Verified 06/17/18 09:19) Other-Enter Comments Tricyclic Compounds Allergy (Unknown, Verified 06/17/18 09:19) Other-Enter Comments warfarin [From Coumadin] Allergy (Unknown, Verified 06/17/18 09:19) Other-Enter Comments SSRIs Allergy (Unknown, Uncoded 06/13/18 21:18) Other-Enter Comments Home Medications: Medication Instructions Recorded Ascorbic Acid [Vitamin C 500 mg 500 mg PO DAILY 06/12/18 (*)] Aspirin [Aspirin 81mg (*)] 81 mg PO DAILY 06/12/18 Cholecalciferol Vit D3 [Vitamin D3 1,000 units PO DAILY 06/12/18 (*)] Clopidogrel Bisulfate [Plavix (*)] 75 mg PO DAILY 06/12/18 Herbals/Supplements -Info Only 1 ea PO DAILY 06/12/18 Liothyronine Sodium [Cytomel 5 mcg 2.5 mcg PO Q2D 06/12/18 (*)] Naltrexone 4.5mg 4.5 mg PO DAILY 06/12/18 Nitroglycerin [Nitrostat 0.4 mg 0.4 mg SL Q5M PRN 06/12/18 (*)] Ondansetron Odt [Zofran Odt 4 mg 4 mg PO Q4 PRN 06/12/18 (*)] Tears/Dextran 70/Hypromellose 1 drop EACHEYE Q2 PRN 06/12/18 [Natural Balance Tears (*)] Testosterone [Androgel] 2.5 gm TD DAILY 06/12/18 Vitamin B Complex [Vitamin B 1 each PO DAILY 06/12/18 Complex (OTC)] Vitamin B12 20,000mcg Inj 1 each IJ Q7D 06/12/18 methylPREDNISolone [Medrol 4mg (*)] 4 mg PO DAILY 06/12/18 Enoxaparin [Lovenox 100 MG (*)] 90 mg SC BID@0600,1800 14 Days #28 06/13/18 syr Hydrocodone/Acetaminophen [Echo 1 each PO TID PRN 5 Days #15 tablet 06/13/18 5-325 Tablet] Methocarbamol [Robaxin 500 mg (*)] 500 mg PO QID PRN 30 Days #30 tab 06/13/18 Medical Decision Making - Diagnostics Imaging Results: Extremity Venous Study 06/17/18 10:01 Impression: No evidence of DVT. Findings discussed with richard Ibrahim for Radha Andre MD 06/17/2018 at 11:08. Imaging: Discussed imaging studies w/ environmental restoration planner Radiologist ED Course/Re-evaluation: 68 y/o male with diagnosis of a left radial artery thrombus from the wrist to the forearm, taking Lovenox, presents with bilateral arm pain, left greater than right. No appreciable swelling on exam. Patient has scattered ecchymoses and scabbed venipuncture sites over both arms, with mild tenderness to the muscles bilaterally. He has good pulses bilaterally and brisk capillary refill. Plan for US of the right and left upper extremity to r/o DVT. Plan for EKG, labs including CBC, chemistries, creatinine kinase, CRP (at patient's request). 12-LEAD EKG: Please see the full report in [facility]. My interpretation: Sinus rhythm, RBB Reviewed laboratory studies. These are largely unremarkable. 11:[address] Uriostegui, radiologist. US of left and right arms are negative for DVT. Reassessed patient. Discussed imaging and laboratory results. Plan to discharge home in good condition. He will follow up with primary care. I recommended he follow up with rheumatology as well for further evaluation of his autoimmune symptoms. Return precautions discussed. He is comfortable with this plan. Differential Diagnosis: Differential diagnoses for the patient's symptom complex was considered including but not limited to compartment syndrome, venous thromboemboli, polymyalgia rheumatica, myalgias, medication effect. - Data Points Laboratory Results: Laboratory Results 06/17/18 10:12 06/17/18 10:12 Departure - Departure Disposition: Home, Routine, Self-Care Clinical Impression: Bilateral arm pain Condition: Good Instructions: Arm Pain (ED) Additional Instructions: Follow up with your primary care provider. You may wish to follow up with rheumatology as well for further evaluation. You may take Tylenol, 650mg every 4-6 hours as needed for pain relief. Return to the emergency department for swelling, redness, worsening pain, numbness, or tingling in your arms or if you develop fever, chest pain, shortness of breath, or other worsening of condition. Referrals: LUCAS CROW [Primary Care Provider] - As per Instructions Rina Sarah MD [Medical Doctor] - As per Instructions Report Scribed for: Radha Andre Report Scribed by: Yady Bennett Date of Report: 06/17/18 Time of Report: 11:18 Physician Review and Approval Statement: 06/17/18 11:51 Portions of this note were transcribed by a certified medical transcriptionist. I personally performed a history, physical exam, medical decision making, and confirmed accuracy of information the transcribed note.
[2018-06-17 10:21] LABS: PLATELET COUNT 245 10^3/uL (150-400)
[2018-06-17 10:31] LABS: INR 0.99 (0.83-1.16); PROTIME(PATIENT) 13.3 SEC (12.0-15.0)
[2018-06-17 10:44] LABS: CREATINE KINASE 30 IU/L (0-224)
[2018-06-17 11:04] VITALS: BP 165/102
--- NOTE | 2018-06-18 16:52 | CPEKG ---
Test Reason : OPEN Blood Pressure : / mmHG Vent. Rate : 097 BPM Atrial Rate : 097 BPM P-R Int : 149 ms QRS Dur : 127 ms QT Int : 361 ms P-R-T Axes : 075 -29 003 degrees QTc Int : 459 ms Sinus rhythm Right bundle branch block Inferior infarct, old Probable posterior infarct, acute Confirmed by Radha Andre ([id number]) on 06/18/2018 4:51:42 PM Referred By: Radha Andre Confirmed By:Radha Andre
== END 2018-06-17 11:25 | disposition home or self-care (01) ==
DX: M79.602 Pain in left arm (principal); M79.601 Pain in right arm; M35.3 Polymyalgia rheumatica; I10 Essential (primary) hypertension; I25.10 Atherosclerotic heart disease of native coronary artery without angina pectoris; Z95.5 Presence of coronary angioplasty implant and graft

== ENCOUNTER → 2018-06-24 | Outpatient (CLI) | payer OTHER, MEDICARE | LOC: FIMAGING 12:25 | PROVIDERS: ATTEND Internal Medicine | DX: M79.632 Pain in left forearm (principal); I74.2 Embolism and thrombosis of arteries of the upper extremities; Z98.890 Other specified postprocedural states ==

== ENCOUNTER 2018-07-25 13:49 | Observation (INO) | payer OTHER, MEDICARE ==
--- NOTE | 2018-07-25 14:14 | EDPHY ---
H & P Stated Complaint: CP, dizzy Time Seen by Provider: 07/25/18 13:49 HPI/ROS: Chief Complaint: Chest tightness, dizziness, palpitations HPI: 68-year-old male with a history of coronary artery disease status post CABG in the past. Patient had a STEMI on the 08 of June this year and underwent catheterization via his left radial artery. He had clot removed from his grafted vein. He had a complication of 100% radial artery thrombus for which she was initially placed on Lovenox but has since discontinued because of bilateral extremity pain. He has been doing cardiac rehab and has been able to exercise for 40 min with heart rate 130 without any difficulty. Four days ago he began noticing intermittent palpitations. He does have a history of atrial fibrillation in the past but this felt different. He did take atenolol with improvement in symptoms. He has had some persistent dizziness for the last few days. At 12:00 p.m. Today, approximately an hour and half prior to arrival the patient developed tightness in his chest tightness between his shoulder blades, lightheadedness with the sensation is going to faint and shortness of breath. These are symptoms he has with prior myocardial infarctions. Did not have any palpitations. No loss of consciousness. He did take nitroglycerin x4 with some relief. At worst the pain was an 8/10. Right now is about a 2/10. On EMS arrival the patient was noted to have no acute ischemic EKG changes. ROS: 10 systems were reviewed and were negative except those elements noted in the HPI. PMH: Coronary artery disease status post CABG and multiple STEMI. Atrial fibrillation. Pernicious anemia. Regi's, Sjogren's syndrome, polymyalgia rheumatica Social History: No smoking, no alcohol, no recreational drug use Family History: non-contributory Physical Exam: Gen: Awake, Alert, No Distress HEENT: Nose: no rhinorrhea Eyes: PERRLA, EOMI Mouth: Moist mucosa Neck: Supple, no JVD Chest: nontender, lungs clear to auscultation Heart: S1, S2 normal, no murmur Abd: Soft, non-tender, no guarding Back: no CVA tenderness, no midline tenderness Ext: no edema, non-tender Skin: no rash Neuro: CN II-XII intact, Sensation grossly intact, Strength 5/5 in bilateral upper and lower extremities - Medical/Surgical History Hx Asthma: Yes Hx Chronic Respiratory Disease: Yes Hx Diabetes: No Hx Cardiac Disease: Yes Hx Renal Disease: No Hx Cirrhosis: No Hx Alcoholism: No Hx HIV/AIDS: No Hx Splenectomy or Spleen Trauma: No Other PMH: bypass 01/29/18, HTN, hypothyroidism, hypoadrenalism, A-Fib, celiac, low testosterone, CAD with stents x5 , sjrogrens syndrome, hiatal hernia, GERD, asthma, appy,, pernicious anemia - Social History Smoking Status: Never smoked Constitutional: Initial Vital Signs Heart Rate 105 H 07/25/18 13:53 Respiratory Rate 16 07/25/18 13:53 Blood Pressure 165/96 H 07/25/18 13:53 O2 Sat (%) 94 07/25/18 13:53 O2 Delivery Mode Nasal Cannula O2 (L/minute) 2 Allergies/Adverse Reactions: ANIBAL Inhibitors Allergy (Unknown, Verified 06/17/18 09:19) Other-Enter Comments Beta-Blockers (Beta-Adrenergic Bloc Allergy (Unknown, Verified 06/17/18 09:19) Other-Enter Comments Calcium Channel Blocking Agents-Dih Allergy (Unknown, Verified 06/17/18 09:19) Other-Enter Comments NSAIDS (Non-Steroidal Anti-Inflamma Allergy (Unknown, Verified 06/17/18 09:19) Other-Enter Comments Proton Pump Inhibitors Allergy (Unknown, Verified 06/17/18 09:19) Other-Enter Comments Zynazrs-Ohy-Cxc Reductase Inhibitor Allergy (Unknown, Verified 06/17/18 09:19) Other-Enter Comments Tricyclic Compounds Allergy (Unknown, Verified 06/17/18 09:19) Other-Enter Comments warfarin [From Coumadin] Allergy (Unknown, Verified 06/17/18 09:19) Other-Enter Comments SSRIs Allergy (Unknown, Uncoded 06/13/18 21:18) Other-Enter Comments Home Medications: Medication Instructions Recorded Ascorbic Acid [Vitamin C 500 mg 500 mg PO DAILY 06/12/18 (*)] Aspirin [Aspirin 81mg (*)] 81 mg PO DAILY 06/12/18 Cholecalciferol Vit D3 [Vitamin D3 1,000 units PO DAILY 06/12/18 (*)] Clopidogrel Bisulfate [Plavix (*)] 75 mg PO DAILY 06/12/18 Herbals/Supplements -Info Only 1 ea PO DAILY 06/12/18 Liothyronine Sodium [Cytomel 5 mcg 2.5 mcg PO Q2D 06/12/18 (*)] Naltrexone 4.5mg 4.5 mg PO DAILY 06/12/18 Nitroglycerin [Nitrostat 0.4 mg 0.4 mg SL Q5M PRN 06/12/18 (*)] Ondansetron Odt [Zofran Odt 4 mg 4 mg PO Q4 PRN 06/12/18 (*)] Tears/Dextran 70/Hypromellose 1 drop EACHEYE Q2 PRN 06/12/18 [Natural Balance Tears (*)] Testosterone [Androgel] 2.5 gm TD DAILY 06/12/18 Vitamin B Complex [Vitamin B 1 each PO DAILY 06/12/18 Complex (OTC)] Vitamin B12 20,000mcg Inj 1 each IJ Q7D 06/12/18 methylPREDNISolone [Medrol 4mg (*)] 4 mg PO DAILY 06/12/18 Enoxaparin [Lovenox 100 MG (*)] 90 mg SC BID@0600,1800 14 Days #28 06/13/18 syr Hydrocodone/Acetaminophen [[place] 1 each PO TID PRN 5 Days #15 tablet 06/13/18 5-325 Tablet] Methocarbamol [Robaxin 500 mg (*)] 500 mg PO QID PRN 30 Days #30 tab 06/13/18 Medical Decision Making - Diagnostics EKG Interpretation: ECG time 2:00 p.m., sinus tachycardia with a rate of 100, there are Q-waves in the inferior leads consistent with an old infarct. No acute ST or T-wave changes. Imaging Results: Imaging Impressions Chest X-Ray 07/25/18 14:10 Impression: Stable chest post open heart surgery. ED Course/Re-evaluation: 68-year-old male with symptoms concerning for possible STEMI. Troponins negative. ECG is are normal. Given his history he will require admission for cardiac rule out. Patient is currently mild symptoms. He has received full anti-platelet treatment including aspirin and Plavix. Case discussed with Dr. Torres, hospitalist. He will admit to the PCU for further evaluation. - Data Points Laboratory Results: Laboratory Results 07/25/18 14:03 07/25/18 14:03 07/25/18 07/25/18 07/25/18 14:03 14:03 13:59 WBC 8.18 10^3/uL 10^3/uL (3.80-9.50) RBC 5.68 10^6/uL 10^6/uL (4.40-6.38) Hgb 17.4 g/dL g/dL (13.7-17.5) Hct 51.2 % H % (40.0-51.0) MCV 90.1 fL fL (81.5-99.8) MCH 30.6 pg pg (27.9-34.1) MCHC 34.0 g/dL g/dL (32.4-36.7) RDW 15.2 % % (11.5-15.2) Plt Count 322 10^3/uL 10^3/uL (150-400) MPV 8.5 fL L fL (8.7-11.7) Neut % (Auto) 69.7 % % (39.3-74.2) Lymph % (Auto) 19.2 % % (15.0-45.0) [place] % (Auto) 9.9 % % (4.5-13.0) Eos % (Auto) 0.0 % L % (0.6-7.6) Baso % (Auto) 0.7 % % (0.3-1.7) Nucleat RBC Rel Count 0.0 % % (0.0-0.2) Absolute Neuts (auto) 5.70 10^3/uL 10^3/uL (1.70-6.50) Absolute Lymphs (auto) 1.57 10^3/uL 10^3/uL (1.00-3.00) Absolute Monos (auto) 0.81 10^3/uL H 10^3/uL (0.30-0.80) Absolute Eos (auto) 0.00 10^3/uL L 10^3/uL (0.03-0.40) Absolute Basos (auto) 0.06 10^3/uL 10^3/uL (0.02-0.10) Absolute Nucleated RBC 0.00 10^3/uL 10^3/uL (0-0.01) Immature Gran % 0.5 % % (0.0-1.1) Immature Gran # 0.04 10^3/uL 10^3/uL (0.00-0.10) Sodium 139 mEq/L mEq/L (135-145) Potassium 4.8 mEq/L mEq/L (3.5-5.2) Chloride 100 mEq/L mEq/L (97-110) Carbon Dioxide 28 mEq/l mEq/l (22-31) Anion Gap 11 mEq/L mEq/L (6-14) BUN 15 mg/dL mg/dL (7-23) Creatinine 0.8 mg/dL mg/dL (0.7-1.3) Estimated GFR > 60 Glucose 120 mg/dL H mg/dL (70-100) Calcium 9.9 mg/dL mg/dL (8.5-10.4) POC Troponin I 0.00 ng/mL ng/mL (0.00-0.08) Point of Care Test Results: Chemistry 07/25/18 13:59 POC Troponin I 0.00 ng/mL ng/mL (0.00-0.08) Departure - Departure Disposition: [facility] Inpatient Acute Clinical Impression: Acute coronary syndrome Condition: Fair Referrals: Patient,NotPresent [Primary Care Provider] - As per Instructions
[2018-07-25 14:25] LABS: PLATELET COUNT 322 10^3/uL (150-400)
[2018-07-25] MEDS ORDERED: ACETAMINOPHEN 325 MG TAB PO PRN (15:33)
[2018-07-25] MEDS ORDERED: ONDANSETRON 4 MG/2 ML VIAL IVP PRN (15:33)
[2018-07-25] MEDS ORDERED: ONDANSETRON DISINTEGRATING 4 MG TAB PO PRN (15:33)
[2018-07-25] MEDS ORDERED: NITROGLYCERIN 0.4 MG BTL SL PRN (15:49)
[2018-07-25] MEDS ORDERED: ATENOLOL 25 MG TAB PO PRN (15:49)
[2018-07-25] MEDS ORDERED: TEARS/DEXTRAN 70/HYPROMELLOSE 15 ML OPHT.BTL EACHEYE PRN (15:49)
--- NOTE | 2018-07-25 16:25 | PDGENHP ---
<Connie Torre - Last Filed: 07/25/18 17:10> History and Physical - Chief Complaint Palpitations, lightheadedness, chest tightness - History of Present Illness This is a 68 y/o male w/ extensive cardiac history including recent CABG x 2 vessels in January 2018, non-STEMI in May 2018 at [facility] treated w/ thrombectomy and repeat angioplasty of previously stented RCA and then coming in the very next day here w/ c/o CP and arm pain; he was r/o'ed for repeat ischemic event and repeat cardiac cath demonstrated no issues w/bypass grafts or RCA. He did have an occlusion of his left radial artery which was the approach used at [facility]. He was started on 2 weeks worth of low molecular weight heparin but he stopped it after a week because of bilateral arm pain. He presents today w/symptoms similar to his prior UT. He reports he used to be a heavy alcohol drinker but rarely drinks now however he was celebrating w/his friends on Sunday night and had 3x Gin and Tonic. He woke up around 2:00am w/ "really crazy heart beats, fast, irregular" and he took atenolol to which he said his palpitations subsided. As the days progressed, he felt like he couldn' t shake his "hangover" feeling. Today, he reports palpitations and lightheadedness to the point where he felt like he would pass out and chest tightness. He took nitroglycerin x 4 w/mild relief. He checked his vitals during these times which were the following: BP 180/110, 96% RA, HR 110. He denies cough, vomiting, urinary difficulties or bowel movement concerns and SOB. Initial EKG and initial troponin upon presentation is unremarkable. He is being admitted for further diagnostic work-up, treatment and monitoring. History Information - Allergies/Home Medication List Allergies/Adverse Reactions: ANIBAL Inhibitors Allergy (Unknown, Verified 06/17/18 09:19) Other-Enter Comments Beta-Blockers (Beta-Adrenergic Bloc Allergy (Unknown, Verified 06/17/18 09:19) Other-Enter Comments Calcium Channel Blocking Agents-Dih Allergy (Unknown, Verified 06/17/18 09:19) Other-Enter Comments NSAIDS (Non-Steroidal Anti-Inflamma Allergy (Unknown, Verified 06/17/18 09:19) Other-Enter Comments Proton Pump Inhibitors Allergy (Unknown, Verified 06/17/18 09:19) Other-Enter Comments Kpcajkw-Nxs-Tms Reductase Inhibitor Allergy (Unknown, Verified 06/17/18 09:19) Other-Enter Comments Tricyclic Compounds Allergy (Unknown, Verified 06/17/18 09:19) Other-Enter Comments warfarin [From Coumadin] Allergy (Unknown, Verified 06/17/18 09:19) Other-Enter Comments SSRIs Allergy (Unknown, Uncoded 06/13/18 21:18) Other-Enter Comments Home Medications: Ascorbic Acid [Vitamin C 500 mg (*)] 500 mg PO DAILY 06/12/18 [Last Taken ] Aspirin [Aspirin 81mg (*)] 81 mg PO DAILY 06/12/18 [Last Taken 07/25/18] Cholecalciferol Vit D3 [Vitamin D3 (*)] 1,000 units PO DAILY 06/12/18 [Last Taken 07/25/18] Clopidogrel Bisulfate [Plavix (*)] 75 mg PO DAILY 06/12/18 [Last Taken 07/25/18] Herbals/Supplements -Info Only 1 ea PO DAILY 06/12/18 [Last Taken Unknown] Liothyronine Sodium [Cytomel 5 mcg (*)] 2.5 mcg PO Q2D 06/12/18 [Last Taken 05/11] Naltrexone 4.5mg 4.5 mg PO DAILY 06/12/18 [Last Taken 07/25/18] Nitroglycerin [Nitrostat 0.4 mg (*)] 0.4 mg SL Q5M PRN 06/12/18 [Last Taken Unknown] Ondansetron Odt [Zofran Odt 4 mg (*)] 4 mg PO Q4 PRN 06/12/18 [Last Taken Unknown] Tears/Dextran 70/Hypromellose [Natural Balance Tears (*)] 1 drop EACHEYE Q2 PRN 06/12/18 [Last Taken Unknown] Testosterone [Androgel] 2.5 gm TD DAILY 06/12/18 [Last Taken 07/25/18] Vitamin B Complex [Vitamin B Complex (OTC)] 1 each PO DAILY 06/12/18 [Last Taken 07/25/18] Vitamin B12 20,000mcg Inj 1 each IJ Q7D 06/12/18 [Last Taken 07/11/18] methylPREDNISolone [Medrol 4mg (*)] 4 mg PO DAILY 06/12/18 [Last Taken 07/25/18] Atenolol [Tenormin 25 mg (*)] 25 - 50 mg PO DAILY PRN 07/25/18 [Last Taken 07/25] Diclofenac Sodium 1% [Voltaren Gel (*)] 1 jaron TP DAILY PRN 07/25/18 [Last Taken Unknown] I have personally reviewed and updated: family history, medical history, social history, surgical history Past Medical History: MARGUERITE on CPAP, Sjogren's, Lyme, polymyalgia rheumatica - Past Medical History atrial fibrillation (Paroxysmal), coronary artery disease, GERD, hypertension, hyperlipidemia Additional medical history: Non-STEMI (May 2018). Paroxysmal atrial fibrillation. Hypercholesterolemia. Valvular heart disease - Surgical History Reports: coronary bypass surgery (CABG x 2 REECE to LAD and SVG to OM in January 2018, w/mitral valve repair) - Family History Positive for: CAD, hypertension, myocardial infarction, stroke - Social History Smoking Status: Never smoked Alcohol Use: Sober (Had 3x Gin and Tonics Sunday night) Drug Use: None Additional social history: . Lives in Hygiene. Review of Systems Review of Systems: ROS: 10pt was reviewed & negative except for what was stated in HPI & below Physical Exam Physical Exam: Lab data and imaging were reviewed. Case discussed w/admitting physician Dr. Ron Torres. WBC: 8.18 BUN/Cr: 15/0.8 EKG: Sinus tachycardia, mild left axis deviation Temp Pulse Resp BP Pulse Ox 92 20 147/86 H 96 07/25/18 16:14 07/25/18 16:14 07/25/18 16:14 07/25/18 16:14 O2 (L/minute) 2 Constitutional: no apparent distress, appears nourished, not in pain Eyes: PERRL, anicteric sclera, EOMI Ears, Nose, Mouth, Throat: moist mucous membranes, hearing normal, ears appear normal, no oral mucosal ulcers Cardiovascular: regular rate and rhythym, no murmur, rub, or gallop, tachycardia , No edema Peripheral Pulses: 2+: dorsalis-pedis (R), dorsalis-pedis (L) Respiratory: no respiratory distress, no rales or rhonchi, clear to auscultation Gastrointestinal: normoactive bowel sounds, soft, non-tender abdomen, no palpable masses Genitourinary: no bladder fullness, no bladder tenderness Skin: warm, normal color, no rashes or abrasions, no fluctuance, no induration, No mottled Musculoskeletal: full muscle strength, no muscle tenderness, normal joint ROM, no joint effusions Neurologic: AAOx3, sensation intact bilaterally, CN II-XII Intact Psychiatric: interacting appropriately, not anxious, not encephalopathic, thought process linear Lymph, Heme, Immunologic: no cervical LAD, no supraclavicular LAD Lab Data & Imaging Review 07/25/18 14:03 07/25/18 14:03 WBC 8.18 10^3/uL (3.80-9.50) 07/25/18 14:03 RBC 5.68 10^6/uL (4.40-6.38) 07/25/18 14:03 Hgb 17.4 g/dL (13.7-17.5) 07/25/18 14:03 Hct 51.2 % (40.0-51.0) H 07/25/18 14:03 MCV 90.1 fL (81.5-99.8) 07/25/18 14:03 MCH 30.6 pg (27.9-34.1) 07/25/18 14:03 MCHC 34.0 g/dL (32.4-36.7) 07/25/18 14:03 RDW 15.2 % (11.5-15.2) 07/25/18 14:03 Plt Count 322 10^3/uL (150-400) 07/25/18 14:03 MPV 8.5 fL (8.7-11.7) L 07/25/18 14:03 Neut % (Auto) 69.7 % (39.3-74.2) 07/25/18 14:03 Lymph % (Auto) 19.2 % (15.0-45.0) 07/25/18 14:03 [place] % (Auto) 9.9 % (4.5-13.0) 07/25/18 14:03 Eos % (Auto) 0.0 % (0.6-7.6) L 07/25/18 14:03 Baso % (Auto) 0.7 % (0.3-1.7) 07/25/18 14:03 Nucleat RBC Rel Count 0.0 % (0.0-0.2) 07/25/18 14:03 Absolute Neuts (auto) 5.70 10^3/uL (1.70-6.50) 07/25/18 14:03 Absolute Lymphs (auto) 1.57 10^3/uL (1.00-3.00) 07/25/18 14:03 Absolute Monos (auto) 0.81 10^3/uL (0.30-0.80) H 07/25/18 14:03 Absolute Eos (auto) 0.00 10^3/uL (0.03-0.40) L 07/25/18 14:03 Absolute Basos (auto) 0.06 10^3/uL (0.02-0.10) 07/25/18 14:03 Absolute Nucleated RBC 0.00 10^3/uL (0-0.01) 07/25/18 14:03 Immature Gran % 0.5 % (0.0-1.1) 07/25/18 14:03 Immature Gran # 0.04 10^3/uL (0.00-0.10) 07/25/18 14:03 D-Dimer < 0.27 ug/mLFEU (0.00-0.50) 07/25/18 14:03 Sodium 139 mEq/L (135-145) 07/25/18 14:03 Potassium 4.8 mEq/L (3.5-5.2) 07/25/18 14:03 Chloride 100 mEq/L (97-110) 07/25/18 14:03 Carbon Dioxide 28 mEq/l (22-31) 07/25/18 14:03 Anion Gap 11 mEq/L (6-14) 07/25/18 14:03 BUN 15 mg/dL (7-23) 07/25/18 14:03 Creatinine 0.8 mg/dL (0.7-1.3) 07/25/18 14:03 Estimated GFR > 60 07/25/18 14:03 Glucose 120 mg/dL (70-100) H 07/25/18 14:03 Calcium 9.9 mg/dL (8.5-10.4) 07/25/18 14:03 POC Troponin I 0.00 ng/mL (0.00-0.08) 07/25/18 13:59 Assessment & Plan Plan: 68 y/o w/ recent non-STEMI presents w/chest tightness relieved mildly w/ nitroglycerin, palpitations w/relief from atenolol however he does not want to continually utilize this medication because it makes him feel like a "zombie," and lightheadedness to the point where he felt like he was going to have a syncopal episode. He did not syncope. His current vital signs are: BP 165/96, HR 105, Resp 16, 95% 2L NC #Suspected Acute coronary syndrome: Heart score 6 (highly suspicious, age, risk factors) -Initial troponin and EKG negative. -Cycle trops Q6H x 2, cycle EKG x 1 Q6H and then PRN -Cont tele/PCU monitoring -Cards consulted. I spoke to Dr. Gardiner who has recently evaluated the pt in his office in early June. He will evaluate the pt in the AM. -Cont DAPT -Orthostatic vitals one time -Cardiac rehab consult -PT/OT to evaluate and treat #Radial artery occlusion: He was placed on 2 weeks worth of low molecular weight heparin to which he stopped after 1 week d/t bilateral arm pain suggestive of tendinitis. Recent imaging reveals artery continues to be occluded and is a known occurrence s/p catheterization w/typically no long-term sequelae. -D-dimer negative; I considered possible PE considering his symptoms and tachycardia however unlikely w/a low d-dimer and his tachycardia seems to be chronic s/p CABG in January 2018. #HTN: stable. Cont atenolol. #Valvular heart disease: ECHO performed in April 2018 demonstrated normal LVEF , only trace MR. #Atrial fibrillation: Hx of paroxysmal. Maintains SR. He presented in sinus tachycardia here and I did not appreciate any murmurs, gallops or rubs. He has deferred systemic AC #Autoimmune disorders -Cont steroid Diet: Regular VTE ppx: SCDs Code: Full Dispo: Admit to obs <Dilan Torres - Last Filed: 07/25/18 17:45> History and Physical - History of Present Illness Review of Systems Review of Systems: Physical Exam Physical Exam: Temp Pulse Resp BP Pulse Ox 92 20 147/86 H 96 04/04/19 16:14 07/25/18 16:14 07/25/18 16:14 07/25/18 16:14 O2 (L/minute) 2 Lab Data & Imaging Review 07/25/18 14:03 07/25/18 14:03 WBC 8.18 10^3/uL (3.80-9.50) 07/25/18 14:03 RBC 5.68 10^6/uL (4.40-6.38) 07/25/18 14:03 Hgb 17.4 g/dL (13.7-17.5) 07/25/18 14:03 Hct 51.2 % (40.0-51.0) H 07/25/18 14:03 MCV 90.1 fL (81.5-99.8) 07/25/18 14:03 MCH 30.6 pg (27.9-34.1) 07/25/18 14:03 MCHC 34.0 g/dL (32.4-36.7) 07/25/18 14:03 RDW 15.2 % (11.5-15.2) 07/25/18 14:03 Plt Count 322 10^3/uL (150-400) 07/25/18 14:03 MPV 8.5 fL (8.7-11.7) L 07/25/18 14:03 Neut % (Auto) 69.7 % (39.3-74.2) 07/25/18 14:03 Lymph % (Auto) 19.2 % (15.0-45.0) 07/25/18 14:03 [place] % (Auto) 9.9 % (4.5-13.0) 07/25/18 14:03 Eos % (Auto) 0.0 % (0.6-7.6) L 07/25/18 14:03 Baso % (Auto) 0.7 % (0.3-1.7) 07/25/18 14:03 Nucleat RBC Rel Count 0.0 % (0.0-0.2) 07/25/18 14:03 Absolute Neuts (auto) 5.70 10^3/uL (1.70-6.50) 07/25/18 14:03 Absolute Lymphs (auto) 1.57 10^3/uL (1.00-3.00) 07/25/18 14:03 Absolute Monos (auto) 0.81 10^3/uL (0.30-0.80) H 07/25/18 14:03 Absolute Eos (auto) 0.00 10^3/uL (0.03-0.40) L 07/25/18 14:03 Absolute Basos (auto) 0.06 10^3/uL (0.02-0.10) 07/25/18 14:03 Absolute Nucleated RBC 0.00 10^3/uL (0-0.01) 07/25/18 14:03 Immature Gran % 0.5 % (0.0-1.1) 07/25/18 14:03 Immature Gran # 0.04 10^3/uL (0.00-0.10) 07/25/18 14:03 D-Dimer < 0.27 ug/mLFEU (0.00-0.50) 07/25/18 14:03 Sodium 139 mEq/L (135-145) 07/25/18 14:03 Potassium 4.8 mEq/L (3.5-5.2) 07/25/18 14:03 Chloride 100 mEq/L (97-110) 07/25/18 14:03 Carbon Dioxide 28 mEq/l (22-31) 07/25/18 14:03 Anion Gap 11 mEq/L (6-14) 07/25/18 14:03 BUN 15 mg/dL (7-23) 07/25/18 14:03 Creatinine 0.8 mg/dL (0.7-1.3) 07/25/18 14:03 Estimated GFR > 60 07/25/18 14:03 Glucose 120 mg/dL (70-100) H 07/25/18 14:03 Calcium 9.9 mg/dL (8.5-10.4) 07/25/18 14:03 POC Troponin I 0.00 ng/mL (0.00-0.08) 07/25/18 13:59 Assessment & Plan Assessment: Acute coronary syndrome (Acute) Plan: Chart reviewed, patient personally examined, case d/w Radha Torre [employer]. Agree with findings outlined above. Please see my separate note for additional details.
--- NOTE | 2018-07-25 16:51 | HOSPPROG ---
Hospitalist Progress Note Assessment/Plan: Case discussed with Radha Torre BRASS POURER. Agree with her findings with the following exceptions: Briefly, 68yo M with cardiac history presents with chest pain and palpitations. He has a history of paroxysmal atrial fibrillation s/p PVI and Petersen-Maze, mod- severe MR s/p MV annuloplasty, CAD s/p 2v CABG 01/2018, NSTEMI early May 2018 with thrombosis of previously stented RCA s/p thrombectomy and PTCA. He was admitted to [facility] in late May after his NSTEMI with recurrent chest pain. He underwent heart catheterization at that time with patent grafts and eyak vessels. He returns today with 4 days of chest discomfort and palpitations that are similar to prior cardiac events. His SBP was in the 180s at home and he was noting an erratic heart beat. He reports relief with sublingual nitroglycerin and is currently chest pain free. He has been doing well at cardiac rehab with no symptoms. No leg edema, orthopnea, PND, or syncope. His initial troponin and ECG are non-ischemic. He is being admitted for further evaluation. Exam: No distress, comfortable appearing, RRR, lungs clear, abdomen soft and nondistended, no leg edema, no JVD. Labs: Normal CBC and BMP. POC troponin 0.00. D-dimer undetectable. Chest x-ray: No acute cardiopulmonary process. No e/o heart failure. ECG: sinus tachycardia, normal intervals and axis, no right heart strain, inferior Q waves (old), no new ST-T segment ischemic changes Assessment/Plan: #Chest pain, palpitations: With recent coronary angiography showing patents eyak and bypass vessels and negative initial trop/ecg, I have a low suspicion for an acute coronary syndrome. Possible his symptoms are related to uncontrolled HTN or a dysrhythmia. Trend serial trop/ecg, monitor on tele. Do not see strong indication for ischemic evaluation at this time. Case d/w cardiology. Plan for outpatient cardiac event monitor. #Sinus tachycardia: Somewhat chronic. D-dimer negative making PE unlikely. He does not want to take beta or calcium channel blockers. #HTN: He only uses atenolol PRN. Not interested in other medications at present. 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 Was briefly on lovenox, now off. #CAD: Continue home aspirin, plavix. Non-compliant with beta yana. #VHD s/p MV annuloplasty. He has a normal LVEF. #H/o atrial fibrillation: [id number], he declines systemic anticoagulation. He had his left atrial appendage ligated. #MARGUERITE: Uses CPAP #Polymyalgia rheumatica: On low dose steroid. VTE ppx: low risk, SCDs Dispo: Admit under observation Objective: Vital Signs Temp Pulse Resp BP Pulse Ox 92 20 147/86 H 96 07/25/18 16:14 07/25/18 16:14 07/25/18 16:14 07/25/18 16:14 ICD10 Worksheet Patient Problems: Problems Problem Status Onset Acute coronary syndrome Acute Acute blood loss anemia Acute Arm pain Acute Chest pain Acute Coronary stent restenosis Acute Mitral regurgitation Acute S/P CABG x 2 Acute ~01/29/18 S/P Maze operation for atrial fibrillation Acute ~01/29/18 S/P mitral valve repair Acute ~01/29/18 CAD in eyak artery Chronic MARGUERITE (obstructive sleep apnea) Chronic PAF (paroxysmal atrial fibrillation) Chronic
[2018-07-26 04:30] LABS: PLATELET COUNT 269 10^3/uL (150-400)
[2018-07-26] MEDS ORDERED: ASCORBIC ACID 500 MG TAB PO SCH (09:00)
[2018-07-26] MEDS ORDERED: ASPIRIN 81 MG CHEWABLE TAB PO SCH (09:00)
[2018-07-26] MEDS ORDERED: CHOLECALCIFEROL VIT D3 1,000 UNITS TAB PO SCH (09:00)
[2018-07-26] MEDS ORDERED: VITAMIN B COMPLEX 1 EA CAP/TAB PO SCH (09:00)
[2018-07-26] MEDS ORDERED: TESTOSTERONE 2.5 GM TD SCH (09:00)
[2018-07-26] MEDS ORDERED: methylPREDNISolone 4 MG TAB PO SCH (09:00)
[2018-07-26] MEDS ORDERED: LIOTHYRONINE SODIUM 5 MCG TAB PO SCH (09:00)
[2018-07-26] MEDS ORDERED: NALTREXONE 4.5 MG PO SCH (09:00)
[2018-07-26] MEDS ORDERED: CLOPIDOGREL BISULFATE 75 MG TAB PO SCH (09:00)
[2018-07-26 11:32] VITALS: BP 146/81
--- NOTE | 2018-07-26 12:20 | ASMTCMCOM ---
CM Note CM Note Notes: 07/26/2018 Case Management Note Discussed pt during rounds this morning. Pt admitted for chest pain. Discussed w/PT who cleared for home independent. There are no case management d/c needs identified d/t pt age, marital status and independence with ADL's prior to admission. Case Management d/c poc: independent with follow up as directed. Case Management available if needs change. Date Signed: 07/26/2018 12:19 PM Electronically Signed By:Opal Esparza RN
--- NOTE | 2018-07-26 12:42 | CPEKG ---
Test Reason : OPEN Blood Pressure : / mmHG Vent. Rate : 100 BPM Atrial Rate : 100 BPM P-R Int : 146 ms QRS Dur : 092 ms QT Int : 345 ms P-R-T Axes : 057 -33 009 degrees QTc Int : 445 ms Sinus tachycardia Inferior infarct, old Confirmed by Chandra Hawkins ([id number]) on 07/26/2018 12:41:22 PM Referred By: Chandra Hawkins Confirmed By:Chandra Hawkins
--- NOTE | 2018-07-26 14:09 | PDCARPN ---
Cardiology Progress Note Chief Complaint: Palpitations Assessment/Plan: Mr. Bates is a 68-year-old male who is well known to me from over a decade of outpatient and inpatient care. He has a history of paroxysmal atrial fibrillation, coronary artery disease, and valvular heart disease. In the past he had undergone PCI procedures. Because of progression of his coronary disease and worsening mitral regurgitation, he underwent open heart surgery in January of last year which consisted of a 2 vessel CABG (REECE to LAD and SVG to OM), mitral valve annuloplasty, and Petersen Maze IV ablation. I last saw him on June 26. He reported that his heart rate has been somewhat persistently elevated since his surgery in January. This past Sunday, he was socializing with friends. He had 3 gin and tonics which is significantly more than he usually drinks. He developed worsening palpitations. Over the 1st couple of days this week, he tried low doses of atenolol which helped with his tachycardia but, as usual, produced extremely bothersome beta-yana side effects. Because of persistent issues with a sense of palpitations and tachycardia, he came to the emergency room yesterday. He was placed in observation overnight. He has been in sinus rhythm/sinus tachycardia. There has been no evidence for atrial fibrillation. He has not been experiencing any symptoms suggestive of angina. Serial troponins were normal. He did not demonstrate any evidence of volume overload. I tends to agree with his assessment that his heart rate is somewhat inappropriately high. For example, reviewing his telemetry overnight, he had a heart rate of 75 beats per minute while sleeping at 2:00 a.m. At this point, I think he is stable for discharge. I have contacted my nurse in the offices of [facility]. She will contact Mr. Bates to arrange for a 48 hr Holter monitor and follow-up with me as soon as possible. 07/26/18 13:59 Subjective: Feeling OK today Objective: Vital Signs (8 Hrs) Temp Pulse Resp BP Pulse Ox 07/26/18 11:31 36.8 C 92 20 146/81 H 95 07/26/18 06:59 36.8 C 86 10 L 163/90 H 95 Intake/Output (24 Hrs) 07/25/18 07/26/18 07/27/18 05:59 05:59 05:59 Other: Weight 92.1 kg Result Diagrams: 07/26/18 03:02 07/26/18 03:02 Cardiac Labs: Cardiac Lab Results (72 Hrs) 07/26/18 07/25/18 03:02 20:10 Troponin I < 0.012 < 0.012 - Physical Exam Constitutional: WDWN, no apparent distress Eyes: anicteric sclera Ears, Nose, Mouth, Throat: moist mucous membranes Cardiovascular: regular rate and rhythm, no murmurs, no gallops Respiratory: clear to auscultate bilat Gastrointestinal: normoactive bowel sounds, no masses Skin: no rashes, no edema Neurologic: AAOx3 Psychiatric: not anxious ICD10 Worksheet Patient Problems: Problems Problem Status Onset Acute coronary syndrome Acute Acute blood loss anemia Acute Arm pain Acute Chest pain Acute Coronary stent restenosis Acute Mitral regurgitation Acute S/P CABG x 2 Acute ~01/29/18 S/P Maze operation for atrial fibrillation Acute ~01/29/18 S/P mitral valve repair Acute ~01/29/18 CAD in [place] artery Chronic MARGUERITE (obstructive sleep apnea) Chronic PAF (paroxysmal atrial fibrillation) Chronic
--- NOTE | 2018-07-26 14:49 | ASDISCHSUM ---
Discharge Information Plan Status:Home with No Needs Medically Cleared to Leave:07/26/2018 Discharge Date:07/26/2018 CM D/C Disposition:Home, Routine, Self-Care ADT D/C Disposition:Home, Routine, Self-Care Projected Discharge Date:07/26/2018 Transportation at D/C: Discharge Delay Reason: Follow-Up Date:07/26/2018 Discharge Slot: Final Diagnosis: Placement Information Patient Contact Information Contact Name:MAISHA Relationship: Address:[address] City:[place] Alternate Phone: [facility]/Zip Code:[place] [address] Email: Financial Information Financial Class:Medicare Primary Plan Desc:MEDICARE OUTPATIENT Primary Plan Number:[id number] Secondary Plan Desc:[employer]/MDR SUPPLEMENT Secondary Plan Number:[id number] Assessment Information LACE LACE Length of stay for Answers: Less than 1 day current admission Acuity / Level of Answers: No Care: Did the patient have an inpatient admission? Comorbidities - select Answers: Coronary Artery Disease all that apply Previous myocardial infarction Other Notes: AFib; HTN; HLD # of Emergency department Answers: 5-8 visits in the last 6 months Score: 8 Date Signed: 07/26/2018 02:47 PM Electronically Signed By:Opal Esparza RN [facility] CM Progress Note CM Note CM Note Notes: 07/26/2018 Case Management Note Discussed pt during rounds this morning. Pt admitted for chest pain. Discussed w/PT who cleared for home independent. There are no case management d/c needs identified d/t pt age, marital status and independence with ADL's prior to admission. Case Management d/c poc: independent with follow up as directed. Case Management available if needs change. Date Signed: 07/26/2018 12:19 PM Electronically Signed By:Opal Esparza RN Intervention Information Intervention Type:*PETERSON-Signed Date of Service:07/26/2018 11:40 AM Patient Type:Observation Staff Member:Ivanna Moss Hours: Discipline: Severity: Comment:
--- NOTE | 2018-07-26 15:59 | PDDCSUM ---
Discharge Summary Discharge Summary: HPI/HOSPITAL COURSE: 68yo M with cardiac history presents with chest pain and palpitations. He has a history of paroxysmal atrial fibrillation s/p PVI and Petersen-Maze, mod-severe MR s/ p MV annuloplasty, CAD s/p 2v CABG 01/2018, NSTEMI early May 2018 with thrombosis of previously stented RCA s/p thrombectomy and PTCA. He was admitted to [facility] in late May after his NSTEMI with recurrent chest pain. He underwent heart catheterization at that time with patent grafts and kasaan vessels. He returned via the ER with 4 days of chest discomfort and palpitations that are similar to prior cardiac events. His SBP was in the 180s at home and he was noting an erratic heart beat. He reports relief with sublingual nitroglycerin and is currently chest pain free. He has been doing well at cardiac rehab with no symptoms. No leg edema, orthopnea, PND, or syncope. He was admitted. His cardiac w/u was negative. He was evaluated by Cardiology. They have recommended an event monitor and are arranging this as an outpatient. f/u: with Cardiology for event monitor placement as arranged Exam: No distress, comfortable appearing, RRR, lungs clear, abdomen soft and nondistended, no leg edema, no JVD. Labs: Normal CBC and BMP. POC troponin 0.00. D-dimer undetectable. Chest x-ray: No acute cardiopulmonary process. No e/o heart failure. ECG: sinus tachycardia, normal intervals and axis, no right heart strain, inferior Q waves (old), no new ST-T segment ischemic changes DDX: #Chest pain, palpitations: With recent coronary angiography showing patents kasaan and bypass vessels and negative initial trop/ecg, Plan for outpatient cardiac event monitor. #Sinus tachycardia: Somewhat chronic. D-dimer negative making PE unlikely. He does not want to take beta or calcium channel blockers. #HTN: He only uses atenolol PRN. Not interested in other medications at present. 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 Was briefly on lovenox, now off. #CAD: Continue home aspirin, plavix. Non-compliant with beta yana. #VHD s/p MV annuloplasty. He has a normal LVEF. #H/o atrial fibrillation: [id number], he declines systemic anticoagulation. He had his left atrial appendage ligated. #MARGUERITE: Uses CPAP #Polymyalgia rheumatica: On low dose steroid. Meds: no new medications were adjusted or started. see med rec total time spent on d/c is 35 mins
[2018-08-01] MEDS ORDERED: VITAMIN B12 IJ SCH (09:00)
== END 2018-07-26 14:50 | disposition home or self-care (01) ==
LOC: EDUNIT# → F2W 19:50
PROVIDERS: ADMIT Internal Medicine; ATTEND Internal Medicine
DX: R07.9 Chest pain, unspecified (principal); R00.2 Palpitations; R00.0 Tachycardia, unspecified; I48.0 Paroxysmal atrial fibrillation; E06.3 Autoimmune thyroiditis; I25.10 Atherosclerotic heart disease of native coronary artery without angina pectoris; I25.2 Old myocardial infarction; I10 Essential (primary) hypertension; D51.0 Vitamin B12 deficiency anemia due to intrinsic factor deficiency; M35.00 Sjogren syndrome, unspecified; M35.3 Polymyalgia rheumatica; Z95.5 Presence of coronary angioplasty implant and graft; Z95.1 Presence of aortocoronary bypass graft; G47.33 Obstructive sleep apnea (adult) (pediatric); Z86.718 Personal history of other venous thrombosis and embolism; Z79.02 Long term (current) use of antithrombotics/antiplatelets; Z79.82 Long term (current) use of aspirin
CPT/HCPCS: 71046; 93005; G0378; 84484-ER

== ENCOUNTER → 2018-07-26 | Outpatient (CLI) | payer OTHER, MEDICARE | LOC: BHFA 15:00 | PROVIDERS: ATTEND Internal Medicine Interventional Cardiology | DX: R00.0 Tachycardia, unspecified (principal) ==